=== PATIENT | male | born 1965 | race Caucasian/White ===

== ENCOUNTER 2016-05-11 11:15 | Inpatient (IN) | payer SELFPAY ==
[~2016-05-11] VITALS: Ht 172.7 cm; Wt 64.8 kg
[~2016-05-11 11:15] MED LIST: Z.0.NO CURRENT MEDS
[2016-05-11] MEDS ORDERED: SODIUM CHLORIDE 0.9% FLUSH 5 ML FLUSH IVF PRN (11:45)
[2016-05-11 12:08] LABS: AUTOMATED NEUTROPHIL # 5.2 TH/MM3 (1.8-7.7); BASOPHIL # 0.1 TH/MM3 (0-0.2); BASOPHIL % 1.9 % (0.0-2.0); EOSINOPHIL # 0.1 TH/MM3 (0-0.4); EOSINOPHIL % 0.9 % (0.0-4.0); HEMATOCRIT 45.3 % (39.0-51.0); HEMO FLAGS DIFF FINAL; LYMPH % 20.8 % (9.0-44.0); LYMPHOCYTE # 1.6 TH/MM3 (1.0-4.8); MEAN CELL VOLUME 95.1 FL (80.0-100.0); MEAN CORPUSCULAR HEMOGLOBIN 33.1 PG (27.0-34.0); MEAN CORPUSCULAR HGB CONC 34.8 % (32.0-36.0); MONO % 8.5 % (0.0-8.0); NEUT % 67.9 % (16.0-70.0); PLATELET COUNT 380 TH/MM3 (150-450); RED BLOOD COUNT 4.76 MIL/MM3 (4.50-5.90); RED CELL DISTRIBUTION WIDTH 13.2 % (11.6-17.2); WHITE BLOOD COUNT 7.7 TH/MM3 (4.0-11.0)
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
[2016-05-11] MEDS ORDERED: SODIUM CHLOR 0.9% 1000 ML INJ 1,000 ML IV ONE (12:15)
[2016-05-11 12:17] LABS: APTT (PATIENT) 28.5 SEC (24.3-30.1); PROTHROMBIN TIME - PATIENT 10.7 SEC (9.8-11.6)
[2016-05-11 12:37] LABS: ALKALINE PHOSPHATASE 94 U/L (45-117); ALT (GPT) 41 U/L (12-78); ANION GAP 9 MEQ/L (5-15); AST (GOT) 51 U/L (15-37); BICARBONATE 24.4 MEQ/L (21.0-32.0); BLOOD UREA NITROGEN 6 MG/DL (7-18); CHLORIDE 98 MEQ/L (98-107); CREATINE KINASE 131 U/L (39-308); GLOMERULAR FILTRATION RATE 99 ML/MIN (>89); MAGNESIUM 1.8 MG/DL (1.5-2.5); SODIUM (NA) 131 MEQ/L (136-145); TOTAL BILIRUBIN ADULT 0.5 MG/DL (0.2-1.0)
[2016-05-11 12:38] LABS: POTASSIUM 4.3 MEQ/L (3.5-5.1)
[2016-05-11 12:56] LABS: CKMB 1.3 NG/ML (0.5-3.6)
[2016-05-11 13:04] VITALS: BP 121/66; PULSE 79; RESP 14; O2SAT 97
--- NOTE | 2016-05-11 13:07 | RADRPT ---
EXAM DATE/TIME: 05/11/2016 12:02 [facility] COMPARISON: No previous studies available for comparison. INDICATIONS: Dizziness, with shortness of breath and syncope. MEDICAL HISTORY: None. SURGICAL HISTORY: None. ENCOUNTER: Initial ACUITY: 1 day PAIN SCORE: 05/11 LOCATION: Bilateral chest FINDINGS: There is evidence of questionable nodular densities within both lungs within the left mid lung field, left apex and right perihilar region. CT of the chest would be helpful for further evaluation of th goldie questionable nodules. The heart is normal in size. CONCLUSION: 1. Questionable scattered nodular densities within the lungs bilaterally. CT of the chest would be helpful for further characterization of these questionable nodules. Rustam Campa MD on May 11, 2016 at 12:34 Board Certified Radiologist. This report was verified electronically.
[2016-05-11 13:24] LABS: BLOOD, URINE NEG (NEG); GLUCOSE,URINE 150 mg/dL (NEG); KETONE, URINE 10 mg/dL (NEG); NITRITE,URINE NEG (NEG); PH, URINE 7.5 (5.0-8.5); URINE COLOR YELLOW (YELLW/STRAW)
[2016-05-11] MEDS ORDERED: IOHEXOL 350 MG/ML 10 ML VIAL (for RAD DIAG) IV ONE (13:25)
--- NOTE | 2016-05-11 13:41 | RADRPT ---
EXAM DATE/TIME: 05/11/2016 13:21 [facility] COMPARISON: CHEST SINGLE AP, May 11, 2016, 12:02. INDICATIONS : Near syncopal episode, nause and light headness IV CONTRAST: 75 cc Omnipaque 350 (iohexol) IV RADIATION DOSE: 23.17 CTDIvol (mGy) MEDICAL HISTORY : Cardiovascular disease. Hypertension. SURGICAL HISTORY : None. ENCOUNTER: Initial ACUITY: 1 day PAIN SCALE: 4/10 LOCATION: chest TECHNIQUE: Volumetric scanning of the chest was performed using a pulmonary embolism protocol MIP images were re constructed. Using automated exposure control and adjustment of the mA and/or kV according to patien t size, radiation dose was kept as low as reasonably achievable to obtain optimal diagnostic quality images. FINDINGS: PULMONARY ARTERIES: No filling defects are seen in the pulmonary arteries through the segmental level. LUNGS: The lungs are significant for a background of moderate to severe centrilobular emphysema. There is a spiculated 1.7 cm mass identified within the upper lobe of the left lung, additional spiculated mass identified within the right lower lobe measuring 2.2 cm. Smaller spiculated masses are identified wit hin the right middle lobe measuring 9 mm and within the basilar aspect of the left upper lobe measuri ng 1.2 cm. Multiple small 5 mm lesions are also noted within the right upper lobe. PLEURAE: There is no pleural thickening or pleural effusion. MEDIASTINUM: There is good visualization of the great vessels of the middle mediastinum. There is a rounded 2.3 cm mass involving the right hilum. MUSCULOSKELETAL: Within normal limits for patient age. MISCELLANEOUS: There is a calcified lesion within the spleen consistent with an old calcified hematoma. Adrenal glan ds appear normal. CONCLUSION: Right hilar mass and multiple irregular pulmonary masses as noted above. These are co ncerning for neoplasm. Shavonne Chavez MD on May 11, 2016 at 13:33 Board Certified Radiologist. This report was verified electronically.
[2016-05-11 13:52] LABS: BACTERIA, URINE OCC /hpf; MUCUS URINE MANY /lpf (OCC)
[2016-05-11 13:53] LABS: CULTURE IF INDICATED CULT NOT INDICATED
[2016-05-11] MEDS ORDERED: PIPERACIL-TAZO 4.5 GM PREMIX 100 ML IV STA (14:37)
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
[2016-05-11 15:00] VITALS: BP 117/66; PULSE 101; RESP 14; O2SAT 97
[2016-05-11] MEDS ORDERED: LORazepam 2 MG TAB PO PRN (15:45)
[2016-05-11] MEDS ORDERED: LORazepam 1 MG TAB PO PRN (15:45)
[2016-05-11] MEDS ORDERED: LORazepam 2 MG/ML VIAL IV PUSH PRN ×2 (15:45)
[2016-05-11] MEDS ORDERED: FLUMAZENIL 1 MG/10 ML VIAL IV PUSH PRN (16:00)
[2016-05-11] MEDS: NICOTINE 14 MG/24 HR PATCH TD SCH (16:09)
[2016-05-11 18:00] VITALS: BP 147/84; PULSE 80; RESP 16; O2SAT 95
[2016-05-11 20:03] VITALS: BP 144/85; PULSE 89; RESP 18; O2SAT 96
[2016-05-11] MEDS: RESP: ALBUTEROL 2.5 MG/IPRATROPIUM 0.5 MG NEB (SCH) NEB (20:25)
[2016-05-11 20:27] VITALS: O2SAT 96
[2016-05-11] MEDS: LORazepam 2 MG/ML VIAL IV PUSH PRN (21:47)
[2016-05-11 22:21] LABS: AMPHETAMINE, URINE NEG (NEG); BARBITURATES, URINE NEG (NEG); COCAINE, URINE NEG (NEG)
[2016-05-12] VITALS (14 sets, daily range): BP systolic 110–138; BP diastolic 65–93; PULSE 76–105; RESP 16–20; TEMP 97.8–98.7; O2SAT 92–96
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
[2016-05-12 06:20] LABS: ALKALINE PHOSPHATASE 93 U/L (45-117); ALT (GPT) 32 U/L (12-78); ANION GAP 8 MEQ/L (5-15); AST (GOT) 31 U/L (15-37); BICARBONATE 26.3 MEQ/L (21.0-32.0); BLOOD UREA NITROGEN 7 MG/DL (7-18); CHLORIDE 104 MEQ/L (98-107); GLOMERULAR FILTRATION RATE 139 ML/MIN (>89); POTASSIUM 3.8 MEQ/L (3.5-5.1); SODIUM (NA) 138 MEQ/L (136-145)
[2016-05-12 07:35] LABS: HEMATOCRIT 49.1 % (39.0-51.0); MEAN CELL VOLUME 96.7 FL (80.0-100.0); MEAN CORPUSCULAR HEMOGLOBIN 33.2 PG (27.0-34.0); MEAN CORPUSCULAR HGB CONC 34.3 % (32.0-36.0); PLATELET COUNT 346 TH/MM3 (150-450); RED BLOOD COUNT 5.08 MIL/MM3 (4.50-5.90); RED CELL DISTRIBUTION WIDTH 13.2 % (11.6-17.2); REVIEW FLAG FINAL; WHITE BLOOD COUNT 9.5 TH/MM3 (4.0-11.0)
[2016-05-12] MEDS: RESP: ALBUTEROL 2.5 MG/IPRATROPIUM 0.5 MG NEB (SCH) NEB ×2 (08:00→11:54)
--- NOTE | 2016-05-12 08:34 | HHI.FPPN ---
Subjective Remarks Patient seen and examined this am. Has been evaluated by pulmonology. No overnight events. Vitals are stable, he is afebrile. He has no complaints this am. (Silvia Maher MD R3) Objective Vitals Vital Signs Date Time Temp Pulse Resp B/P Pulse Ox O2 Delivery O2 Flow Rate FiO2 05/12/16 06:35 76 18 138/83 94 05/12/16 05:24 96 21 05/12/16 00:39 86 18 114/65 96 Room Air 05/11/16 20:27 96 21 05/11/16 20:03 89 18 144/85 96 Room Air 05/11/16 18:00 80 16 147/84 95 Room Air 05/11/16 15:00 101 14 117/66 97 Room Air 05/11/16 13:04 79 14 121/66 97 Room Air I/O 05/11/16 05/11/16 05/11/16 05/12/16 05/12/16 05/12/16 07:00 15:00 23:00 07:00 15:00 23:00 Output Total 600 ml Balance -600 ml Output Urine Total 600 ml # Voids 1 (Silvia Maher MD R3) Result Diagram: 05/12/16 0537 05/12/16 [address] Angiography 05/11/16 1251 Signed Impressions: Service Date/Time: Wednesday, May 11, 2016 13:21 - CONCLUSION: Right hilar mass and multiple irregular pulmonary masses as noted above. These are concerning for neoplasm. Shavonne Chavez MD Chest X-Ray 05/11/16 1144 Signed Impressions: Service Date/Time: Wednesday, May 11, 2016 12:02 - CONCLUSION: 1. Questionable scattered nodular densities within the lungs bilaterally. CT of the chest would be helpful for further characterization of these questionable nodules. Rustam Campa MD Objective Remarks GENERAL: disheveled appearing SKIN: Warm and dry. acne on back HEAD: Normocephalic. EYES: No scleral icterus. No injection or drainage. NECK: Supple, trachea midline. No JVD or lymphadenopathy. CARDIOVASCULAR: Regular rate and rhythm without murmurs, gallops, or rubs. RESPIRATORY: Breath sounds equal bilaterally. No accessory muscle use. GASTROINTESTINAL: Abdomen soft, non-tender, nondistended. MUSCULOSKELETAL: No cyanosis, or edema. BACK: Nontender without obvious deformity. No CVA tenderness. (Silvia Maher MD R3) A/P Assessment and Plan 50 yo male presented to ED after near syncopal event found to have incidental lung mass. Discharge Planning D/C pending work up of lung mass. Will need assistance with obtaining blue card. seen and discussed with Iván Jennings Clark (Silvia Maher MD R3) Attending Attestation A detailed discussion with Dr Maher, Dr Minor, Dr Agustin and Dr Jewell about patients admission was held this morning, patient was then seen and examined by the team, agree with the contents of this note,Assessment and Plan appropiate, See Orders. (Mannie Patel MD) Problem List: (1) Near syncope Status: Resolved Plan: Patient presenting after acute onset of chest pain, shortness of breath, dizziness, and feelings of impending doom. Resolved after oxygen supplementation and IV fluids. Based on history from patient, it does sound like an anxiety attack. - Troponin negative - CTA negative for PE (2) Lung mass Status: Acute Plan: CC CTA and chest x-ray imaging above. Right hilar mass and multiple irregular pulmonary masses are noted. Concern for neoplasm. The patient is without insurance or PCP. - Seen by pulmonology: PFTs, CT guided biopsy, coag profile, duonebs, smoking cessation (3) UTI (urinary tract infection) Status: Acute Plan: UA is significant for 150 glucose, 30 protein, 10 ketones, 6-8 WBCs, occasional bacteria. He was given IV Zosyn in the ED. - Because this is a simple UTI we'll treat with Bactrim 160 mg by mouth twice a day 3 days - Urine culture is pending (4) Alcohol abuse Status: Acute Plan: Patient drinks a sixpack of alcohol every day. He denies symptoms of withdrawal with cessation. He is not motivated to quit. - CIWA protocol ordered (5) Smoker Status: Acute Plan: 1 pack per day for greater than 30 years. Patient with no desire to quit at this time. - Nicotine patch (6) FEN Status: Acute Plan: Fluids: Hep-Lock IV. Electrolytes: hypoNa resolved after fluid restriction and 1 L bolus Nutrition: regular diet DVT prophy- bilat SCDs (Silvia Maher MD R3) Silvia Maher MD R3 May 12, 2016 08:34 Mannie Patel MD May 12, 2016 16:31
[2016-05-12] MEDS: REMOVE OLD PATCH TD SCH (09:00)
[2016-05-12] MEDS: NICOTINE 14 MG/24 HR PATCH TD SCH (10:18)
[2016-05-12] MEDS: SULFAMETHOXAZOLE-TRIMETHOPRIM DS 800-160 MG TAB PO SCH ×2 (10:19→21:11)
[2016-05-12] MEDS: LORazepam 2 MG/ML VIAL IV PUSH PRN ×3 (11:13→21:11)
[2016-05-12] MEDS ORDERED: LIDOCAINE 1%/EPINEPHrine 1:100,000 SOLN 20 ML VIAL ONE (13:03)
[2016-05-12] MEDS ORDERED: fentaNYL CITRATE 250 MCG/5 ML AMP ONE (13:25)
[2016-05-12] MEDS ORDERED: MIDAZOLAM HCL 5 MG/5 ML VIAL ONE (13:25)
--- NOTE | 2016-05-12 14:27 | RADRPT ---
EXAM DATE/TIME: 05/12/2016 13:30 [facility] COMPARISON: No previous studies available for comparison. INDICATIONS : Right lung mass. SEDATION TIME: 30 minutes BIOPSY SITE: Right MEDICATION(S): 1.) 3 mg midazolam (Versed) IV 2.) 150 mcg fentanyl (Sublimaze) IV DEVICE(S): 1.) 20 gauge Temno core biopsy needle MEDICAL HISTORY : Hypertension. Cardiovascular disease. SURGICAL HISTORY : None. ENCOUNTER: Initial ACUITY: 1 day PAIN SCORE: 0/10 LOCATION: Right chest A total of three core specimen(s) were obtained and sent to the laboratory for pathologic evaluation. PROCEDURE: 1. CT guided lung biopsy. 2. Conscious sedation with continuous EKG and oximetry monitoring. 3. EKG and oximetry remained stable throughout the procedure. Prior to the procedure informed consent was obtained. Any appropriate prior imaging studies were rev iewed. The site was prepped in a sterile fashion. Full sterile technique was used, including cap, mask, emmy rile gloves and gown and a large sterile sheet. Hand hygiene and 2% chlorhexidine and/or betadine/al cohol prep was utilized per protocol for cutaneous antisepsis. The skin and subcutaneous tissues wer e infiltrated with local anesthetic solution. Under CT guidance an 18 gauge blunt needle was placed down to the lesion and 3 cores were obtained. A single slide was submitted. Material was sent for culture. Follow-up CT scan reveals no pneumothorax. Conscious sedation was performed with the prescribed dosages and duration as above. The patient tsering ated the procedure well and there were no complications. EKG and oximetry remained stable throughout the procedure. The patient was sent to Radiology Outpatient Unit in stable condition. CONCLUSION: Uncomplicated CT guided biopsy. Pathology and culture is pending pending Clive Berrios MD FACR on May 12, 2016 at 14:20 Board Certified Radiologist. This report was verified electronically.
[2016-05-12] MEDS ORDERED: oxyCODONE/ACETAMINOPHEN 5 MG/325 MG TAB PO PRN (14:45)
--- NOTE | 2016-05-12 16:38 | RADRPT ---
EXAM DATE/TIME: 05/12/2016 16:07 [facility] COMPARISON: No previous studies available for comparison. INDICATIONS : Post right side lung biopsy. MEDICAL HISTORY : Hypertension. Cardiovascular disease. SURGICAL HISTORY : None. ENCOUNTER: Initial ACUITY: 1 day PAIN SCORE: 2/10 LOCATION: Right chest FINDINGS: A single frontal expiratory view of the chest was performed. The lungs are symmetrically aerated and clear. No evidence of pneumothorax. Mediastinal structures are in the midline. The cardio-mediastinal contours and bronchopulmonary markings are unremarkable for an expiratory exam . Osseous structures are intact. CONCLUSION: There is no pneumothorax following lung biopsy on the right. Clive Berrios MD FACR on May 12, 2016 at 16:33 Board Certified Radiologist. This report was verified electronically.
--- NOTE | 2016-05-12 17:53 | HHI.PR ---
Subjective Remarks Had CT needle biopsy. NO pneumothorax. Shaky and want s to go home. Path pending. Objective Vital Signs Date Time Temp Pulse Resp B/P Pulse Ox O2 Delivery O2 Flow Rate FiO2 05/12/16 17:05 97.8 105 16 127/75 92 05/12/16 16:30 101 20 110/70 95 05/12/16 16:00 103 20 119/75 94 05/12/16 15:30 98 18 129/80 94 05/12/16 15:00 103 20 117/74 94 05/12/16 14:30 98 20 130/93 94 05/12/16 14:15 98.6 96 20 111/72 92 05/12/16 11:54 92 05/12/16 10:15 94 20 137/78 95 Room Air 05/12/16 06:35 76 18 138/83 94 05/12/16 05:24 96 21 05/12/16 00:39 86 18 114/65 96 Room Air 05/11/16 20:27 96 21 05/11/16 20:03 89 18 144/85 96 Room Air 05/11/16 18:00 80 16 147/84 95 Room Air I/O 05/11/16 05/11/16 05/11/16 05/12/16 05/12/16 05/12/16 07:00 15:00 23:00 07:00 15:00 23:00 Output Total 600 ml Balance -600 ml Output Urine Total 600 ml # Voids 1 Result Diagram: 05/12/16 0537 05/12/16 0537 Objective Remarks General: This is a middle-aged white male who is alert and in no acute distress. HEENT: Head normocephalic. Pupils are reactive. Tongue moist. Nasal mucosa edematous. Throat is mildly injected. Neck: Supple. No bruits, no thyroid enlargement. Chest: Equal movements with decreased excursions and a few wheezes anteriorly with no crackles on either side. Heart: The heart sounds are regular. S1 and S2 with no murmur. No S3. Abdomen: Soft, benign. No mass, no organomegaly or tenderness. Bowel sounds are active. Extremities: No edema or lesions. Neuro: Normal reflexes. There are no gross motor deficits. Cranial nerves are grossly intact. Skin: No lesions. Assessment and Plan Assessment and Plan IMPRESSION 1. Multiple lung masses, rule out malignancy. 2. Chronic obstructive pulmonary disease. 3. Near syncope. 4. Nicotine dependency. Plan : 1. Will add Spiriva , 1 cap daily. 2. Albuterol HFA 2 puffs qid prn. 3. Path report pending. 4. Nicotine patch/ Ativan prn. 5. CXR in am Armida Landon MD May 12, 2016 17:53
[2016-05-12] MEDS ORDERED: ALBUTEROL SULFATE 90 MCG/ACT HFA 8 GM INHALER INH PRN (18:00)
--- NOTE | 2016-05-12 22:51 | EKG ---
Date Performed: 05/11/2016 Time Performed: 11:21:36 PTAGE: 50 years EKG: SINUS TACHYCARDIA ABNORMAL RHYTHM ECG PREVIOUS TRACING : 11/17/2008 08.53 Compared to prior tracing no significant change DOCTOR: Jose Eduardo Rdz Interpretating Date/Time 05/12/2016 22:48:14
[2016-05-13 00:20] VITALS: BP 122/7; PULSE 88; RESP 16; TEMP 98.3; O2SAT 93
[2016-05-13 04:00] VITALS: BP 107/70; PULSE 83; RESP 16; TEMP 98.5; O2SAT 94
[2016-05-13] MEDS: LORazepam 2 MG/ML VIAL IV PUSH PRN ×2 (04:34→08:51)
[2016-05-13 06:05] LABS: HEMATOCRIT 47.5 % (39.0-51.0); MEAN CELL VOLUME 96.7 FL (80.0-100.0); MEAN CORPUSCULAR HGB CONC 34.1 % (32.0-36.0); PLATELET COUNT 346 TH/MM3 (150-450); RED BLOOD COUNT 4.91 MIL/MM3 (4.50-5.90); RED CELL DISTRIBUTION WIDTH 13.3 % (11.6-17.2); REVIEW FLAG FINAL; WHITE BLOOD COUNT 8.4 TH/MM3 (4.0-11.0)
[2016-05-13 06:17] LABS: BICARBONATE 25.1 MEQ/L (21.0-32.0); POTASSIUM 3.7 MEQ/L (3.5-5.1)
[2016-05-13 08:00] VITALS: BP 130/82; PULSE 103; RESP 20; TEMP 97.5; O2SAT 94
--- NOTE | 2016-05-13 08:24 | RADRPT ---
EXAM DATE/TIME: 05/13/2016 07:16 [facility] COMPARISON: CHEST EXPIRATION ONLY, May 12, 2016, 16:07. CT NEEDLE BIOPSY LUNG, RIGHT, May 12, 2016, 13:[address] PULMONARY ANGIOGRAM, May 11, 2016, 13:21. INDICATIONS : Short of breath MEDICAL HISTORY : None. SURGICAL HISTORY : None. ENCOUNTER: Subsequent ACUITY: 2 days PAIN SCORE: 0/10 LOCATION: Bilateral chest FINDINGS: Minimal atelectasis in both bases. Bilateral pulmonary masses are vaguely seen. No pneumothorax demon strated. No pleural effusion. Heart size stable, within normal limits. CONCLUSION: Trace bibasilar atelectasis. No pneumothorax. Ras Mera MD on May 13, 2016 at 8:22 Board Certified Radiologist. This report was verified electronically.
--- NOTE | 2016-05-13 08:45 | HHI.FPPN ---
Subjective Remarks No acute events overnight. AFVSS. Eating, voiding, stooling, ambulating without difficulties. Has no acute complaints, requesting when he can leave hospital. We discussed that though lung biopsy is still being read by pathologist, preliminary reading showed cancer, non-SCC. Patient appeared to minimalize whatever response he had to this news. Continued smiling, stated he had no questions. We emphasized that it was important to follow up with the lung doctors in the oncology/cancer doctors, as well as a primary care physician to take care of his lung cancer. Patient expressed understanding. Denies fevers, chills, nausea, vomiting, chest pain, palpitations, shortness of breath, abdominal pain. Objective Vitals Vital Signs Date Time Temp Pulse Resp B/P Pulse Ox O2 Delivery O2 Flow Rate FiO2 05/13/16 04:00 98.5 83 16 107/70 94 05/13/16 00:20 98.3 88 16 122/7 93 05/12/16 22:27 21 05/12/16 20:00 98.7 98 16 127/72 94 05/12/16 20:00 98.7 98 16 127/72 94 05/12/16 19:30 96 05/12/16 17:05 97.8 105 16 127/75 92 05/12/16 16:30 101 20 110/70 95 05/12/16 16:00 103 20 119/75 94 05/12/16 15:30 98 18 129/80 94 05/12/16 15:00 103 20 117/74 94 05/12/16 14:30 98 20 130/93 94 05/12/16 14:15 98.6 96 20 111/72 92 05/12/16 11:54 92 05/12/16 10:15 94 20 137/78 95 Room Air I/O 05/12/16 05/12/16 05/12/16 05/13/16 05/13/16 05/13/16 07:00 15:00 23:00 07:00 15:00 23:00 Intake Total 200 ml Balance 200 ml Intake Oral 200 ml # Voids 2 Result Diagram: 05/13/16 0405 05/13/16 0405 Imaging Last Impressions Chest X-Ray 05/12/16 1600 Signed Impressions: Service Date/Time: Thursday, May 12, 2016 16:07 - CONCLUSION: There is no pneumothorax following lung biopsy on the right. Clive Berrios MD FACR Lung Biopsy CT 05/12/16 0000 Signed Impressions: Service Date/Time: Thursday, May 12, 2016 13:30 - CONCLUSION: Uncomplicated CT guided biopsy. Pathology and culture is pending pending Clive Berrios MD FACR CT Angiography 05/11/16 1251 Signed Impressions: Service Date/Time: Wednesday, May 11, 2016 13:21 - CONCLUSION: Right hilar mass and multiple irregular pulmonary masses as noted above. These are concerning for neoplasm. Shavonne Chavez MD Objective Remarks GENERAL: disheveled appearing thin male in NAD SKIN: Warm and dry. acne on back. 0.5 cm circular pale mobile mass on right clavicle HEENT: PERRL. MMM. CARDIOVASCULAR: Regular rate and rhythm without murmurs, gallops, or rubs. RESPIRATORY: Breath sounds equal bilaterally. No accessory muscle use. GASTROINTESTINAL: Abdomen soft, non-tender, nondistended. MUSCULOSKELETAL: No cyanosis, or edema. NEURO: No gross motor sensory deficits PSYCH: Appears in good spirits, smiling throughout exam. Response to cancer diagnosis was minimalistic. Procedures 05/12/15- Lung Biopsy Urinary Catheter: No Vascular Central Line Catheter: No A/P Assessment and Plan 50 yo male presented to ED after near syncopal event found to have incidental lung mass. Discharge Planning Today or tomorrow, pending case assistance obtaining blue card and pulmonology recommendations Problem List: (1) Non-small cell cancer of right lung Status: Acute Plan: Non-small cell carcinoma, per 05/12/15 lung biopsy. Imaging:R hilar mass, multiple irregular masses. Lung biopsy 05/12/15 initial smear suggestive small cell carcinoma. CTA, CXR as above. Pulmonology consulted. Plan PFTs ordered 05/11, not appearing in EMR at present time, performed? Supportive: PPSV23 administered, Smoking cessation encouraged, nicotine patch PRN Wound Cx (05/12): gram stain, fungal stain, mycoplasm stain, pending BCx- NG1D UCx- NG1D PPD pending Case consulted- help with blue card establishment Pulmonary consulted- will follow up as outpatient Will discuss if referral to onc at discharge or through pcp (2) UTI (urinary tract infection) Status: Acute Plan: UA is significant for 150 glucose, 30 protein, 10 ketones, 6-8 WBCs, occasional bacteria. He was given IV Zosyn in the ED. - Because this is a simple UTI we'll treat with Bactrim 160 mg by mouth twice a day 3 days - Urine culture is pending (3) Near syncope Status: Resolved Plan: Patient presenting after acute onset of chest pain, shortness of breath, dizziness, and feelings of impending doom. Resolved after oxygen supplementation and IV fluids. Initially thought to be anxiety attack, may also be related to incidental SCC diagnosed during hospitalization. Troponin negative. CTA negative for PE. may be related to alcohol withdrawal. plan -see plan for non-SCC -follow up pcp (4) Alcohol abuse Status: Acute Plan: Patient drinks a sixpack of alcohol every day. He denies symptoms of withdrawal with cessation. He is not motivated to quit. plan - [facility] protocol ordered, encouraged alcohol cessation (5) Smoker Status: Acute Plan: 1 pack per day for greater than 30 years. Patient with no desire to quit at this time. - Nicotine patch, smoking cessation counseling provided (6) FEN Status: Acute Plan: Fluids: PO Electrolytes: hypoNa resolved after fluid restriction and 1 L bolus Nutrition: regular diet DVT prophy- bilat SCDs GI: not indicated SDW: Dr Farley DW: Lennie Lu MD R1 May 13, 2016 08:44
[2016-05-13] MEDS: REMOVE OLD PATCH TD SCH (08:47)
[2016-05-13] MEDS: NICOTINE 14 MG/24 HR PATCH TD SCH (08:47)
[2016-05-13] MEDS: SULFAMETHOXAZOLE-TRIMETHOPRIM DS 800-160 MG TAB PO SCH (08:47)
[2016-05-13] MEDS ORDERED: TIOTROPIUM BROMIDE 18 MCG INH INH SCH (09:00)
[2016-05-13] MEDS ORDERED: PNEUMOCOCCAL POLYVALENT INJ 25 MCG/0.5 ML SYR IM ONE (10:00)
[2016-05-13 11:27] VITALS: PULSE 89
[2016-05-13 12:00] VITALS: BP 119/77; PULSE 115; RESP 20; TEMP 97.2; O2SAT 95
[2016-05-14 14:02] LABS: MITOGEN MINUS NIL RESULT >10.00 IU/mL (()); NIL RESULT 0.03 IU/mL (()); QUANTIFERON TB GOLD RESULT Negative (Negative)
--- NOTE | 2016-06-15 08:42 | RSPPFT ---
DATE OF PROCEDURE: 05/13/16 COMMENTS: Spirometry demonstrates an FEV1 of 1.7 at 49%, FVC of 2.7 at 64%, FEV1/FVC ratio is 63% of predicted. The FEF 25-75 was 33% of predicted. Post-bronchodilator study demonstrated mild improvements in the FVC and the FEF 25-75. Flow volume loops suggest an obstructive defect. IMPRESSION: 1. Severe obstructive disease. 2. Significant response to use of bronchodilator indicating some reversibility.
== END 2016-05-13 12:21 | disposition left against medical advice (07) | DRG 181 ==
LOC: NEPE 11:15 → NEDA 14:36 → NEDH 19:25 → N04A 05-12 17:06
PROVIDERS: ADMIT Family Medicine; ATTEND Family Medicine
PROC: 0BBK3ZX Excision of Right Lung, Percutaneous Approach, Diagnostic (ICD-10-PCS; principal; 2016-05-12)
DX: C34.91 Malignant neoplasm of unspecified part of right bronchus or lung (principal); E87.1 Hypo-osmolality and hyponatremia; I10 Essential (primary) hypertension; N39.0 Urinary tract infection, site not specified; R55 Syncope and collapse; J44.9 Chronic obstructive pulmonary disease, unspecified; F17.210 Nicotine dependence, cigarettes, uncomplicated; R61 Generalized hyperhidrosis; R00.2 Palpitations; F10.10 Alcohol abuse, uncomplicated; R11.0 Nausea; R00.0 Tachycardia, unspecified; Y90.2 Blood alcohol level of 40-59 mg/100 ml; F12.90 Cannabis use, unspecified, uncomplicated
CPT/HCPCS: 32405; 71010; 71275; 77012; 80048; 80053; 80307; 80320; 81001; 82550; 82552; 83605; 83735; 84484; 85025; 85027; 85379; 85610; 85730; 86480; 87015; 87040; 87070; 87086; 87102; 87116; 87205; 87206; 88305; 88333; 90732; 93005; 94060; 94664; 96360; J2060; J2250; J2543; J3010; J7030; Q9967

== ENCOUNTER 2016-11-25 14:01 | Emergency (ER) | payer OTHER ==
[~2016-11-25] VITALS: Ht 172.7 cm; Wt 59.0 kg
[2016-11-25 14:12] VITALS: BP 99/61; PULSE 107; RESP 20; TEMP 98.7; O2SAT 97
--- NOTE | 2016-11-25 14:25 | PD ---
Physical Exam Time Seen by Provider: 14:25 Narrative 51 y/o male with abdominal pain radiating into the back which has been ongoing for 4 months. Vital signs reviewed. Seen at triage desk. Awaiting bed placement. Data Data Last Documented VS Vital Signs Date Time Temp Pulse Resp B/P Pulse Ox O2 Delivery O2 Flow Rate FiO2 11/25/16 14:12 98.7 107 20 99/61 97 Room Air [facility] Medical Record Reviewed: Yes Supervised Visit with ARLENE: No Scripts No Active Prescriptions or Reported Meds Kiel Waller Nov 25, 2016 14:25
[2016-11-25] MEDS ORDERED: SODIUM CHLOR 0.9% 1000 ML INJ 1,000 ML IV SCH (15:35)
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
[2016-11-25] MEDS ORDERED: ONDANSETRON HCL 4 MG/2 ML VIAL IVP ONE (15:45)
[2016-11-25] MEDS ORDERED: MORPHINE SULFATE 4 MG/ML INJ IV PUSH ONE ×2 (15:45→16:30)
[2016-11-25] MEDS ORDERED: SODIUM CHLORIDE 0.9% FLUSH 10 ML FLUSH IV FLUSH PRN (15:45)
[2016-11-25 16:50] LABS: AUTOMATED NEUTROPHIL # 7.6 TH/MM3 (1.8-7.7); BASOPHIL # 0.1 TH/MM3 (0-0.2); BASOPHIL % 1.2 % (0.0-2.0); EOSINOPHIL # 0.2 TH/MM3 (0-0.4); EOSINOPHIL % 1.9 % (0.0-4.0); HEMATOCRIT 43.6 % (39.0-51.0); HEMO FLAGS DIFF FINAL; LYMPH % 18.9 % (9.0-44.0); LYMPHOCYTE # 2.3 TH/MM3 (1.0-4.8); MEAN CELL VOLUME 93.2 FL (80.0-100.0); MEAN CORPUSCULAR HEMOGLOBIN 32.1 PG (27.0-34.0); MEAN CORPUSCULAR HGB CONC 34.4 % (32.0-36.0); MONO % 14.8 % (0.0-8.0); NEUT % 63.2 % (16.0-70.0); PLATELET COUNT 672 TH/MM3 (150-450); RED BLOOD COUNT 4.67 MIL/MM3 (4.50-5.90); RED CELL DISTRIBUTION WIDTH 14.1 % (11.6-17.2); WHITE BLOOD COUNT 11.9 TH/MM3 (4.0-11.0)
[2016-11-25 16:56] LABS: BLOOD, URINE NEG (NEG); COMMENT (UR) CULT NOT INDICATED; CULTURE IF INDICATED CULT NOT INDICATED; GLUCOSE,URINE NEG (NEG); KETONE, URINE 40 mg/dL (NEG); MUCUS URINE FEW /lpf (OCC); NITRITE,URINE NEG (NEG); PH, URINE 5.5 (5.0-8.5); URINE COLOR YELLOW (YELLW/STRAW)
[2016-11-25 17:00] VITALS: BP 133/72; PULSE 85; RESP 19; O2SAT 98
[2016-11-25 17:01] VITALS: BP 133/72; PULSE 85; RESP 19; O2SAT 98
[2016-11-25 17:04] LABS: ALKALINE PHOSPHATASE 93 U/L (45-117); ALT (GPT) 17 U/L (12-78); TOTAL BILIRUBIN ADULT 0.4 MG/DL (0.2-1.0)
[2016-11-25 17:11] LABS: ANION GAP 7 MEQ/L (5-15); AST (GOT) 33 U/L (15-37); BICARBONATE 27.5 MEQ/L (21.0-32.0); BLOOD UREA NITROGEN 10 MG/DL (7-18); CHLORIDE 101 MEQ/L (98-107); GLOMERULAR FILTRATION RATE 144 ML/MIN (>89); POTASSIUM 4.2 MEQ/L (3.5-5.1); SODIUM (NA) 135 MEQ/L (136-145)
[2016-11-25] MEDS ORDERED: IOHEXOL 350 MG/ML 10 ML VIAL (for RAD DIAG) IV ONE (18:56)
--- NOTE | 2016-11-25 19:17 | RADRPT ---
EXAM DATE/TIME: 11/25/2016 18:38 [facility] COMPARISON: CT PULMONARY ANGIOGRAM, May 11, 2016, 13:21. INDICATIONS : Abdominal and back pain. IV CONTRAST: 100 cc Omnipaque 350 (iohexol) IV ORAL CONTRAST: No oral contrast ingested. RADIATION DOSE: 6.64 CTDIvol (mGy) MEDICAL HISTORY : Cardiovascular disease. Carcinoma, lung. Hypertension. SURGICAL HISTORY : None. ENCOUNTER: Initial ACUITY: 4 - 6 months PAIN SCALE: 9/10 LOCATION: abdomen TECHNIQUE: Volumetric scanning of the abdomen and pelvis was performed. Using automated exposure control and ad justment of the mA and/or kV according to patient size, radiation dose was kept as low as reasonably achievable to obtain optimal diagnostic quality images. DICOM format image data is available electro nically for review and comparison. FINDINGS: Lung bases are clear except for minimal dependent atelectasis. There is a 5.4 cm mass at the midpole right kidney. The mass appears to invaginate the renal cortex a nd is probably centered in the perirenal fat. This is most characteristic of metastatic disease given the reported lung masses. There is a 2.4 cm left adrenal nodule also suspicious for metastatic disease. No significant abnormal ity in the liver. Several splenules present in the left upper quadrant with some calcifications as we ll possibly related to prior trauma or surgery. There is no free fluid. No bowel obstruction. There is a 2.2 cm lytic and bony destructive lesion in the left iliac wing suspicious for bony metast atic disease. No other pelvic masses or adenopathy. CONCLUSION: 1. 5.4 cm mass adjacent to midpole right kidney, probably extrinsic to the right kidney and most sharla acteristic of metastatic disease. 2. 2.2 cm lytic lesion left iliac wing associated with a small soft tissue mass characteristic of bon y metastatic disease. 3. 2.4 cm left adrenal nodule. This is most characteristic of metastatic disease and is increased from May 2016. Venkata Mars MD on November 25, 2016 at 19:07 Board Certified Radiologist. This report was verified electronically.
[2016-11-25] MEDS ORDERED: HYDR-3533 PO (19:32)
--- NOTE | 2016-11-25 19:33 | PD ---
Data Data Last Documented VS Vital Signs Date Time Temp Pulse Resp B/P Pulse Ox O2 Delivery O2 Flow Rate FiO2 11/25/16 17:01 85 19 133/72 98 Room Air 11/25/16 14:12 98.7 Orders Complete Blood Count With Diff (11/25/16 15:35) Comprehensive Metabolic Panel (11/25/16 15:35) Lipase (11/25/16 15:35) Urinalysis - C+S If Indicated (11/25/16 15:35) Ct Abd/Pel W Iv Contrast(Rout) (11/25/16 15:35) Iv Access Insert/Monitor (11/25/16 15:35) Ecg Monitoring (11/25/16 15:35) Oximetry (11/25/16 15:35) Ondansetron Inj (Zofran Inj) (11/25/16 15:45) Sodium Chlor 0.9% 1000 Ml Inj (Ns 1000 M (11/25/16 15:35) Sodium Chloride 0.9% Flush (Ns Flush) (11/25/16 15:45) Morphine Inj (Morphine Inj) (11/25/16 15:45) Morphine Inj (Morphine Inj) (11/25/16 16:30) Iohexol 350 Inj (Omnipaque 350 Inj) (11/25/16 18:56) Acetamin-Hydrocod 325-5 Mg ([place] 5-325 (11/25/16 19:45) Labs Laboratory Tests Test 11/25/16 15:45 White Blood Count 11.9 TH/MM3 Red Blood Count 4.67 MIL/MM3 Hemoglobin 15.0 GM/DL Hematocrit 43.6 % Mean Corpuscular Volume 93.2 FL Mean Corpuscular Hemoglobin 32.1 PG Mean Corpuscular Hemoglobin 34.4 % Concent Red Cell Distribution Width 14.1 % Platelet Count 672 TH/MM3 Mean Platelet Volume 7.1 FL Neutrophils (%) (Auto) 63.2 % Lymphocytes (%) (Auto) 18.9 % Monocytes (%) (Auto) 14.8 % Eosinophils (%) (Auto) 1.9 % Basophils (%) (Auto) 1.2 % Neutrophils # (Auto) 7.6 TH/MM3 Lymphocytes # (Auto) 2.3 TH/MM3 Monocytes # (Auto) 1.8 TH/MM3 Eosinophils # (Auto) 0.2 TH/MM3 Basophils # (Auto) 0.1 TH/MM3 CBC Comment DIFF FINAL Differential Comment Urine Color YELLOW Urine Turbidity CLEAR Urine pH 5.5 Urine Specific [place] 1.021 Urine Protein TRACE mg/dL Urine Glucose (UA) NEG mg/dL Urine Ketones 40 mg/dL Urine Occult Blood NEG Urine Nitrite NEG Urine Bilirubin NEG Urine Urobilinogen 2.0 MG/DL Urine Leukocyte Esterase NEG Urine WBC 1 /hpf Urine Mucus FEW /lpf Microscopic Urinalysis Comment CULT NOT INDICATED Sodium Level 135 MEQ/L Potassium Level 4.2 MEQ/L Chloride Level 101 MEQ/L Carbon Dioxide Level 27.5 MEQ/L Anion Gap 7 MEQ/L Blood Urea Nitrogen 10 MG/DL Creatinine 0.59 MG/DL Estimat Glomerular Filtration 144 ML/MIN Rate Random Glucose 87 MG/DL Calcium Level 10.1 MG/DL Total Bilirubin 0.4 MG/DL Aspartate Amino Transf 33 U/L (AST/SGOT) Alanine Aminotransferase 17 U/L (ALT/SGPT) Alkaline Phosphatase 93 U/L Total Protein 8.8 GM/DL Albumin 3.2 GM/DL Lipase 90 U/L [facility] Medical Record Reviewed: Yes Supervised Visit with ARLENE: Yes Narrative Course CBC & BMP Diagram 11/25/16 15:45 LFTs lipase and urine are unremarkable Last 24 hours Impressions Abdomen/Pelvis CT 11/25/16 3705 Signed Impressions: Service Date/Time: , November 25, 2016 18:38 - CONCLUSION: 1. 5.4 cm mass adjacent to midpole right kidney, probably extrinsic to the right kidney and most characteristic of metastatic disease. 2. 2.2 cm lytic lesion left iliac wing associated with a small soft tissue mass characteristic of bony metastatic disease. 3. 2.4 cm left adrenal nodule. This is most characteristic of metastatic disease and is increased from May 2016. Venkata Mars MD The CT findings were discussed at length with the patient. He spent about 10 minutes describing the nature of his diagnosis and the necessity of prompt follow-up. The patient reports he has an appointment at the [facility] next Tuesday at 8:30 AM, 8 days from now. He understands that he carries a diagnosis of cancer now with metastasis. He was informed of this 6 months ago. He reports it was "stupid" however he eloped from the hospital about 6 hours after he was informed of the diagnosis before follow-up could be established. Fortunately he now understands the gravity of his diagnoses and the importance of following up. He has verbalized intent to do so and his significant other was present throughout the conversation and has affirmed the plan to adhere to follow-up instructions as discussed and scheduled. Diagnosis Primary Impression: Lung mass Additional Impression: Metastasis Referrals: Oncologist 1 week Additional Instruction: You have a choice when it comes to health care, and we are glad that you chose [facility]. Hopefully, we have met your expectations on today's visit. You are welcome to return to [facility] at any time, as we are committed to meeting the health care needs of our community. Med/Other Pt SpecificInfo: Prescription(s) given Scripts Hydrocodone-Acetaminophen (Lortab)5-325 Mg Tab1-2 Tab PO Q6H PRN (PAIN SCALE 6 TO 10) #20 TAB Ref 0 Prov:Shawn Yepez MD 11/25/16 Disposition: 01 DISCHARGE HOME Condition: Stable Shawn Yepez MD Nov 25, 2016 19:33
[2016-11-25] MEDS ORDERED: ACETAMINOPHEN/HYDROcodone 325 MG/5 MG TAB PO ONE (19:45)
[2016-11-25 19:52] VITALS: BP 141/66; TEMP 98.9
== END 2016-11-25 19:53 | disposition home or self-care (01) ==
LOC: NEPD 14:01
DX: R91.8 Other nonspecific abnormal finding of lung field (principal); C34.90 Malignant neoplasm of unspecified part of unspecified bronchus or lung; N28.89 Other specified disorders of kidney and ureter; D72.829 Elevated white blood cell count, unspecified; I10 Essential (primary) hypertension; J44.9 Chronic obstructive pulmonary disease, unspecified; F17.200 Nicotine dependence, unspecified, uncomplicated
CPT/HCPCS: 74177; 80053; 81001; 83690; 85025; 96361; 96374; 96375; 99285; J2270; J2405; J7030; Q9967

== ENCOUNTER 2016-12-09 07:22 | Day surgery (SDC) | payer OTHER ==
[~2016-12-09] VITALS: Ht 172.7 cm; Wt 58.6 kg
[~2016-12-09 07:22] MED LIST changes: +HYDR-3533 PO; -Z.0.NO CURRENT MEDS
[2016-12-09 07:39] VITALS: BP 99/75; PULSE 103; RESP 18; TEMP 98.2; O2SAT 98
[2016-12-09] MEDS ORDERED: ACET-822 PO (07:43)
[2016-12-09] MEDS ORDERED: ACET25TA2 PO (07:43)
[2016-12-09] MEDS ORDERED: POVIDONE IODINE 5% (ANTISEPSIS KIT) 4 APPLICATIONS EACH NARE SCH (08:00)
[2016-12-09] MEDS ORDERED: CHLORHEXIDINE GLUCONATE 2 % 1 PACK (2 CLOTHS) TOPICAL SCH (08:00)
[2016-12-09] MEDS ORDERED: ceFAZolin 2 GM PREMIX 50 ML - implanted port/tunneled catheter insertion IV SCH (08:00)
[2016-12-09] MEDS ORDERED: VANCOMYCIN 1000 MG/NS 250 ML - implanted port/tunneled catheter IV SCH ×2 (08:00)
[2016-12-09] MEDS ORDERED: SODIUM CHLORIDE 0.9% 1000 ML IV SCH (08:00)
[2016-12-09] MEDS ORDERED: fentaNYL CITRATE 250 MCG/5 ML AMP ONE (09:09)
[2016-12-09] MEDS ORDERED: MIDAZOLAM HCL 2 MG/2 ML VIAL ONE ×2 (09:09→10:06)
[2016-12-09] MEDS ORDERED: LIDOCAINE 1%/EPINEPHrine 1:100,000 SOLN 20 ML VIAL ONE (09:25)
[2016-12-09 10:30] VITALS: BP 117/64; PULSE 91; RESP 20; TEMP 98; O2SAT 92
--- NOTE | 2016-12-09 10:38 | PD.RAD ---
Post Procedure Progress Note Pre Procedure Diagnosis: (1) Lung mass (2) Metastasis (3) Non-small cell cancer of right lung Post Procedure Diagnosis: (1) Non-small cell cancer of right lung (2) Lung mass (3) Metastasis Procedure Date: Dec 09, 2016 Supervising Radiologist: Bakari Gutiérrez Proceduralist/Assist: Michael Hardy, RT(R), Kalani iLndo, RT(R) Anesthesia: Local, Analgesia, Conscious Sedation Plan of Activity Patient to Unit: ROPU Patient Condition: Good See PACS Report for procedural detail/treatment Central Venous Access Device Procedure 1 Right Internal Jugular Infusaport Placement single lumen Georgian: 8 Bakari Gutiérrez MD Dec 09, 2016 10:38
[2016-12-09 10:45] VITALS: BP 116/79; PULSE 102; RESP 20; O2SAT 96
[2016-12-09] MEDS ORDERED: SODIUM CHLORIDE 0.9% FLUSH 10 ML FLUSH IVF PRN (10:45)
[2016-12-09 11:15] VITALS: BP 113/73; PULSE 102; RESP 20; O2SAT 96
[2016-12-09 11:45] VITALS: BP 116/74; PULSE 90; RESP 20; O2SAT 95
[2016-12-09 12:30] VITALS: BP 121/67; PULSE 90; RESP 20; O2SAT 96
--- NOTE | 2016-12-09 16:16 | RADRPT ---
EXAM DATE/TIME: 12/09/2016 09:44 [facility] COMPARISON: No previous studies available for comparison. INDICATIONS : Patient with history of lung cancer in need of [id number] placement. MEDICAL HISTORY : Lung cancer with metastatic disease, HTN, Migraines, Right kidney mass, Left adrenal nodule, Bony les ion left iliac wing SURGICAL HISTORY : Lung biopsy ENCOUNTER: Initial ACUITY: 4-6 months PAIN SCORE: 7/10 LOCATION: Right side mid-back FLUORO TIME: 0.5 minutes IMAGE SERIES: 1 SEDATION TIME: 60 minutes ACCESS: Right internal jugular vein SEDATION: 1.) 5 mg midazolam (Versed) IV 2.) 300 mcg fentanyl (Sublimaze) IV Prophylactic antibiotics were administered with appropriate pre-procedure timing. Vancomycin within 2 hours of procedure, Ancef (or alternative) within 1 hour of procedure. DEVICE: 1. 8 [place] single lumen Smart port with vortex PROCEDURE : 1. Continuous pulse oximetry and EKG monitoring. 2. Intravenous conscious sedation. 3. Ultrasound guidance for venous access. 4. Fluoroscopic guided implantable central venous port placement. The patient was placed supine. The neck was prepped in sterile fashion. Full sterile technique was u sed, including cap, mask, sterile gloves and gown, and a large sterile sheet. Hand hygiene and 2% ch lorhexidine Betadine was utilized per protocol for cutaneous antisepsis with appropriate dry time for site. The skin and subcutaneous tissues were infiltrated with local anesthetic solution. Under direct ultrasound guidance, central venous access was accomplished in the targeted vessel. The ultrasound images depicting access guidance were stored and saved to PACS for permanent record. A s ubcutaneous pocket was created using blunt dissection. The port was introduced to the pocket. The c atheter tubing was fed through a subcutaneous tunnel to the venotomy site. The catheter tubing was c ut to a suitable length and then was introduced through a valved Peel-Away sheath and positioned with catheter tubing tip at the cavo-atrial junction level. The pocket incision was closed with subcutic ular Vicryl suture. Steri-Strips were applied. The port was flushed and locked with heparin solutio n per protocol. Sterile dressing was applied to the site. The patient tolerated the procedure well. Conscious sedation was performed with the prescribed dosages and duration as above in the presence of an independent trained radiology nurse to assist in the monitoring of the patient. EKG and oximetry remained stable throughout the procedure. The patient tolerated the procedure well and there were no complications. The patient was sent to post anesthesia recovery in stable condition. CONCLUSION: Uncomplicated ultrasound and fluoroscopic guided implanted central venous port catheter placement as described in detail above. An 8 Wallis[place] Power port was placed. Bakari Gutiérrez MD on December 09, 2016 at 16:15 Board Certified Radiologist. This report was verified electronically.
== END 2016-12-09 12:30 | disposition home or self-care (01) ==
LOC: HROP 07:22 → HRIP 07:26 → HROP 12:30
PROVIDERS: ATTEND Internal Medicine
DX: C34.91 Malignant neoplasm of unspecified part of right bronchus or lung (principal); C79.9 Secondary malignant neoplasm of unspecified site; I10 Essential (primary) hypertension; G43.909 Migraine, unspecified, not intractable, without status migrainosus; N28.89 Other specified disorders of kidney and ureter; M89.9 Disorder of bone, unspecified
CPT/HCPCS: 36561; 76937; 77001; 99152; 99153; C1788; J0690; J1642; J2250; J3010; J3370; J7030; J7050

== ENCOUNTER 2017-03-30 14:36 | Inpatient (IN) | payer OTHER ==
[~2017-03-30] VITALS: Ht 172.7 cm; Wt 59.9 kg
[~2017-03-30 14:36] MED LIST changes: +MORP1TAB24 PO
[2017-03-30 14:37] VITALS: BP 92/48; PULSE 116; RESP 20; TEMP 98.5; O2SAT 96
[2017-03-30 15:37] LABS: AUTOMATED NEUTROPHIL # 5.8 TH/MM3 (1.8-7.7); BASOPHIL # 0.1 TH/MM3 (0-0.2); BASOPHIL % 1.3 % (0.0-2.0); EOSINOPHIL # 0.2 TH/MM3 (0-0.4); EOSINOPHIL % 2.6 % (0.0-4.0); HEMATOCRIT 29.3 % (39.0-51.0); LYMPH % 22.3 % (9.0-44.0); LYMPHOCYTE # 2.1 TH/MM3 (1.0-4.8); MEAN CELL VOLUME 88.3 FL (80.0-100.0); MEAN CORPUSCULAR HEMOGLOBIN 32.3 PG (27.0-34.0); MONO % 11.5 % (0.0-8.0); NEUT % 62.3 % (16.0-70.0); PLATELET COUNT 525 TH/MM3 (150-450); RED BLOOD COUNT 3.32 MIL/MM3 (4.50-5.90); RED CELL DISTRIBUTION WIDTH 15.8 % (11.6-17.2); WHITE BLOOD COUNT 9.3 TH/MM3 (4.0-11.0)
--- NOTE | 2017-03-30 15:41 | RADRPT ---
EXAM DATE/TIME: 03/30/2017 15:25 [facility] COMPARISON: CHEST SINGLE AP, May 13, 2016, 7:16. INDICATIONS : Short of breath MEDICAL HISTORY : Carcinoma, lung. Metastatic disease. SURGICAL HISTORY : [place] ENCOUNTER: Initial ACUITY: 2 days PAIN SCORE: 0/10 LOCATION: chest FINDINGS: PA and lateral views of the chest reveal a left apical pulmonary mass, right mid lung pulmonary mass, and hilar adenopathy. This is all new from the most recent chest x-ray of May 2016. The lungs ar e otherwise clear. No effusions or pneumothorax. A Port-A-Cath overlies the right chest. Heart is nor mal in size. Mild scoliotic curvature. CONCLUSION: Bilateral pulmonary masses and hilar adenopathy consistent with metastatic disease. No acute infiltra te or effusion. Ramón Flowers Jr., MD on March 30, 2017 at 15:36 Board Certified Radiologist. This report was verified electronically.
[2017-03-30 15:42] LABS: HEMO FLAGS AUTO DIFF; MEAN CORPUSCULAR HGB CONC 36.5 % (32.0-36.0)
[2017-03-30 15:47] LABS: PROTHROMBIN TIME - PATIENT 11.1 SEC (9.8-11.6)
[2017-03-30 16:05] LABS: ALT (GPT) 18 U/L (12-78); ANION GAP 5 MEQ/L (5-15); AST (GOT) 24 U/L (15-37); BLOOD UREA NITROGEN 8 MG/DL (7-18); CHLORIDE 98 MEQ/L (98-107); GLOMERULAR FILTRATION RATE 239 ML/MIN (>89); POTASSIUM 4.1 MEQ/L (3.5-5.1); SODIUM (NA) 132 MEQ/L (136-145)
[2017-03-30 16:07] LABS: ALKALINE PHOSPHATASE 87 U/L (45-117); TOTAL BILIRUBIN ADULT 0.2 MG/DL (0.2-1.0)
[2017-03-30 16:16] LABS: PLATELET ESTIMATE SMEAR HIGH (NORMAL); PLATELET MORPHOLOGY NORMAL (NORMAL); SCAN/DIFF AUTO DIFF CONFIRMED
--- NOTE | 2017-03-30 17:18 | PD ---
HPI Chief Complaint: Abnormal Results Time Seen by Provider: 17:14 Travel History International Travel<30 days: No Contact w/Intl Traveler<30days: No Traveled to known affect area: No History of Present Illness HPI This is a 51-year-old male who was sent here by his oncologist Dr. Hinojosa for admission. The patient has a history of stage IV non-small cell lung cancer. He presented yesterday to his oncologist for follow-up. He received one cycle of chemotherapy 2 weeks ago and per [address] Corona progress note he was referred here to be admitted to the hospital for further evaluation of generalized weakness, weight loss. He feels that he is cachectic and malnourished and will likely need TPN. In regards to review of systems, the patient is complaining of lower abdominal pain which is been ongoing for 10 months. He also has intractable generalized pain, currently receiving morphine as well as fentanyl patches but the pain persists. He has no primary care physician. He ambulates at home with a cane and a walker. He lives with his mother and stepbrother. He has no other complaints at this time. PFSH Past Medical History Blood Disorders: No Cancer: Yes (lung) Cardiovascular Problems: Yes Chemotherapy: Yes COPD: Yes (EMPHYSEMA) Diabetes: No Diminished Hearing: No Endocrine: No Genitourinary: No Hepatitis: No Hiatal Hernia: No Hypertension: Yes Immune Disorder: No Musculoskeletal: No Neurologic: No Psychiatric: No Reproductive: No Respiratory: Yes Thyroid Disease: No Past Surgical History Abdominal Surgery: No AICD: No Cardiac Surgery: No Ear Surgery: No Endocrine Surgery: No Eye Surgery: No Genitourinary Surgery: No Gynecologic Surgery: No Joint Replacement: No Oral Surgery: No Pacemaker: No Thoracic Surgery: No Social History Alcohol Use: Yes (DAILY 6 BEERS ) Tobacco Use: Yes (1PPD) Substance Use: Yes (pot) Allergies-Medications (Allergen,Severity, Reaction): Coded Allergies: No Known Allergies (Verified Adverse Reaction, Unknown, 03/30/17) Reported Meds & Prescriptions Reported Meds & Active Scripts Active Reported Xanax (Alprazolam) 0.5 Mg Tab 0.5 Mg PO Q4H PRN [fentanyl transdermal] Morphine ER (Morphine Sulfate) 15 Mg Tab 15 Mg PO BID PRN Review of Systems Except as stated in HPI: all other systems reviewed are Neg Physical Exam Narrative GENERAL: Frail cachectic-appearing male who is in no acute distress. SKIN: Warm and dry. HEAD: Atraumatic. Normocephalic. EYES: Pupils equal and round. No scleral icterus. No injection or drainage. ENT: No nasal bleeding or discharge. Mucous membranes pink and moist. NECK: Trachea midline. No JVD. CARDIOVASCULAR: Regular rate and rhythm. No murmur appreciated. RESPIRATORY: No accessory muscle use. Clear to auscultation. Breath sounds equal bilaterally. GASTROINTESTINAL: Abdomen soft, tender to palpation lower quadrants without guarding. MUSCULOSKELETAL: No obvious deformities. No clubbing. No cyanosis. No edema. NEUROLOGICAL: Awake and alert. No obvious cranial nerve deficits. Motor grossly within normal limits. Normal speech. PSYCHIATRIC: Appropriate mood and affect; insight and judgment normal. Data Data Last Documented VS Vital Signs Date Time Temp Pulse Resp B/P (MAP) Pulse Ox O2 Delivery O2 Flow Rate FiO2 03/30/17 14:37 98.5 116 20 92/48 (63) 96 Room Air Orders Orders Sepsis Workup Initiated (03/30/17 ) Electrocardiogram (03/30/17 14:56) Complete Blood Count With Diff (03/30/17 14:56) Comprehensive Metabolic Panel (03/30/17 14:56) Prothrombin Time / Inr (Pt) (03/30/17 14:56) Act Partial Throm Time (Ptt) (03/30/17 14:56) Lactic Acid Sepsis Protocol (03/30/17 14:56) Urinalysis - C+S If Indicated (03/30/17 14:56) Blood Culture (03/30/17 14:56) Chest, Pa & Lat (03/30/17 14:56) Admit Order (Ed Use Only) (03/30/17 17:42) Labs Laboratory Tests Test 03/30/17 15:15 White Blood Count 9.3 TH/MM3 Red Blood Count 3.32 MIL/MM3 Hemoglobin 10.7 GM/DL Hematocrit 29.3 % Mean Corpuscular Volume 88.3 FL Mean Corpuscular Hemoglobin 32.3 PG Mean Corpuscular Hemoglobin Concent 36.5 % Red Cell Distribution Width 15.8 % Platelet Count 525 TH/MM3 Mean Platelet Volume 6.6 FL Neutrophils (%) (Auto) 62.3 % Lymphocytes (%) (Auto) 22.3 % Monocytes (%) (Auto) 11.5 % Eosinophils (%) (Auto) 2.6 % Basophils (%) (Auto) 1.3 % Neutrophils # (Auto) 5.8 TH/MM3 Lymphocytes # (Auto) 2.1 TH/MM3 Monocytes # (Auto) 1.1 TH/MM3 Eosinophils # (Auto) 0.2 TH/MM3 Basophils # (Auto) 0.1 TH/MM3 CBC Comment AUTO DIFF Differential Comment AUTO DIFF CONFIRMED Platelet Estimate HIGH Platelet Morphology Comment NORMAL Prothrombin Time 11.1 SEC Prothromb Time International Ratio 1.0 RATIO Activated Partial Thromboplast Time 34.0 SEC Blood Urea Nitrogen 8 MG/DL Creatinine 0.38 MG/DL Random Glucose 98 MG/DL Total Protein 8.0 GM/DL Albumin 2.8 GM/DL Calcium Level 9.9 MG/DL Alkaline Phosphatase 87 U/L Aspartate Amino Transf (AST/SGOT) 24 U/L Alanine Aminotransferase (ALT/SGPT) 18 U/L Total Bilirubin 0.2 MG/DL Sodium Level 132 MEQ/L Potassium Level 4.1 MEQ/L Chloride Level 98 MEQ/L Carbon Dioxide Level 29.0 MEQ/L Anion Gap 5 MEQ/L Estimat Glomerular Filtration Rate 239 ML/MIN Lactic Acid Level 1.3 mmol/L MDM Medical Decision Making Medical Screen Exam Complete: Yes Emergency Medical Condition: Yes Medical Record Reviewed: Yes Differential Diagnosis Metastatic lung cancer, failure to thrive, intractable pain, dehydration, electrolyte abnormality Narrative Course Lab work performed in triage has been reviewed. The patient is being admitted for observation. Diagnosis Primary Impression: Failure to thrive in adult Additional Impression: Metastatic primary lung cancer Admitting Information Admitting Physician Requests: Observation Kiel Waller Mar 30, 2017 17:18
[2017-03-30] MEDS ORDERED: FENTANYL TRANSDERMAL (17:19)
[2017-03-30] MEDS ORDERED: ALPR.5 PO (17:19)
[2017-03-30] MEDS ORDERED: ACETAMINOPHEN 325 MG TAB PO PRN ×2 (18:15)
[2017-03-30] MEDS ORDERED: NALOXONE HCL 0.4 MG/ML AMP IV PUSH PRN (18:15)
[2017-03-30] MEDS ORDERED: MORPHINE SULFATE 4 MG/ML INJ IV PUSH PRN ×2 (18:15)
[2017-03-30] MEDS ORDERED: ONDANSETRON HCL 4 MG/2 ML VIAL IVP PRN (18:15)
[2017-03-30] MEDS ORDERED: PROCHLORPERAZINE 25 MG SUPP RECTAL PRN (18:15)
[2017-03-30] MEDS ORDERED: SENNOSIDES 8.6 MG TAB PO PRN (18:15)
[2017-03-30] MEDS ORDERED: SODIUM CHLORIDE 0.9% FLUSH 10 ML FLUSH IV FLUSH PRN ×2 (18:15→18:45)
[2017-03-30] MEDS ORDERED: MAGNESIUM HYDROXIDE SUSP 30 ML CUP PO PRN (18:15)
[2017-03-30] MEDS ORDERED: LACTULOSE SYRUP 20 GM/30 ML CUP PO PRN (18:15)
[2017-03-30] MEDS ORDERED: BISACODYL 10 MG SUPP RECTAL PRN (18:15)
[2017-03-30] MEDS ORDERED: RESP: ALBUTEROL 2.5 MG/IPRATROPIUM 0.5 MG NEB (PRN) NEB (18:30)
--- NOTE | 2017-03-30 18:30 | HHI.HP ---
[facility] Unknown Admission Diagnosis generalized weakness, metastatic cancer Diagnoses: (1) Failure to thrive in adult Diagnosis: Secondary (2) Smoker Diagnosis: Secondary (3) Metastatic primary lung cancer Diagnosis: Principal (4) Non-small cell cancer of right lung Diagnosis: Principal (5) Metastasis Diagnosis: Principal (6) Lung mass Diagnosis: Principal Travel History International Travel<30 Days: No Contact w/Intl Traveler <30 Da: No Traveled to Known Affected Are: No History of Present Illness This is a 51-year-old male who was sent here by his oncologist Dr. Hinojosa for admission. The patient has a history of stage IV non-small cell lung cancer. He presented yesterday to his oncologist for follow-up. He received one cycle of chemotherapy [address] Corona progress note he was referred here to be admitted to the hospital for further evaluation of generalized weakness, weight loss. He feels that he is cachectic and malnourished and will likely need TPN. In regards to review of systems, the patient is complaining of lower abdominal pain which is been ongoing for 10 months. He also has intractable generalized pain, currently receiving morphine as well as fentanyl patches but the pain persists. He has no primary care physician. He ambulates at home with a cane and a walker. He lives with his mother and stepbrother. He has no other complaints at this time. We will adjust his pain medications. We will consult palliative care We'll consult Review of Systems Constitutional: COMPLAINS OF: Fatigue, Weight loss, DENIES: Diaphoretic episodes, Fever, Weight gain, Chills, Dizziness, Change in appetite, Night Sweats Endocrine: DENIES: Heat/cold intolerance, Polydipsia, Polyuria Eyes: DENIES: Blurred vision, Diplopia, Eye inflammation Ears, nose, mouth, throat: DENIES: Tinnitus, Hearing loss, Vertigo, Nasal discharge Respiratory: COMPLAINS OF: Cough, Shortness of breath, DENIES: Apneas, Snoring , Wheezing, Hemoptysis, Sputum production Cardiovascular: DENIES: Chest pain, Palpitations, Syncope, Dyspnea on Exertion , PND Gastrointestinal: DENIES: Abdominal pain, Black stools, Bloody stools Musculoskeletal: COMPLAINS OF: Joint pain, Back pain, DENIES: Muscle aches, Stiffness, Joint Swelling Integumentary: DENIES: Abnormal pigmentation, Nail changes, Pruritus Hematologic/lymphatic: DENIES: Bruising, Lymphadenopathy Immunologic/allergic: DENIES: Eczema, Urticaria Neurologic: COMPLAINS OF: Abnormal gait, Poor Balance, DENIES: Headache, Localized weakness, Paresthesias, Seizures, Speech Problems, Tremor Psychiatric: COMPLAINS OF: Depression, DENIES: Anxiety, Confusion, Mood changes , Hallucinations, Agitation, Suicidal Ideation, Homicidal Ideation, Delusions Except as stated in HPI: all other systems reviewed are Neg Past Family Social History Past Medical History Stage IV lung cancer COPD Tobacco abuse Recent chemotherapy Cachexia Failure to thrive History of possible hypertension Past Surgical History Port placement right chest History of chemotherapy Reported Medications Reported Meds & Active Scripts Active Reported Xanax (Alprazolam) 0.5 Mg Tab 0.5 Mg PO Q4H PRN [fentanyl transdermal] Morphine ER (Morphine Sulfate) 15 Mg Tab 15 Mg PO BID PRN Allergies: Coded Allergies: No Known Allergies (Verified Adverse Reaction, Unknown, 03/30/17) Active Ordered Medications Current Medications Nicotine (Habitrol 14 Mg Patch.24 Hr) 1 patch DAILY T-DERMAL ; Start 03/30/17 at 18:15; Status UNV Miscellaneous Information 1 DAILY T-DERMAL ; Start 03/31/17 at 09:00; Status UNV Alprazolam (Xanax) 0.5 mg Q4H PRN PO ANXIETY; Start 03/30/17 at 18:15; Status UNV Morphine Sulfate (Oramorph Sr) 30 mg BID PO ; Start 03/30/17 at 21:00; Status UNV Sodium Chloride (NS Flush) 2 ml UNSCH PRN IV FLUSH FLUSH AFTER USING IV ACCESS ; Start 03/30/17 at 18:15; Status UNV Sodium Chloride (NS Flush) 2 ml BID IV FLUSH ; Start 03/30/17 at 21:00; Status UNV Acetaminophen (Tylenol) 650 mg Q4H PRN PO TEMP > 100.4; Start 03/30/17 at 18: 15; Status UNV Ondansetron HCl (Zofran Inj) 4 mg Q6H PRN IVP NAUSEA OR VOMITING; Start at 18:15; Status UNV Prochlorperazine (Compazine Supp) 25 mg Q12H PRN MT NAUSEA OR VOMITING; Start 03/30/17 at 18:15; Status UNV Zolpidem Tartrate (Ambien) 5 mg HS PRN PO INSOMNIA; Start 03/30/17 at 18:15; Status UNV Enoxaparin Sodium (Lovenox Inj) 30 mg Q24H SQ ; Start 03/30/17 at 18:15; Status UNV Acetaminophen (Tylenol) 650 mg Q6H PRN PO PAIN SCALE 1 TO 2; Start 03/30/17 at 18:15; Status UNV Oxycodone/ Acetaminophen (Percocet 5-325 Mg) 1 tab Q6H PRN PO PAIN SCALE 3 TO 5; Start 03/30/17 at 18:15; Status UNV Oxycodone/ Acetaminophen (Percocet 10-325 Mg) 1 tab Q6H PRN PO PAIN SCALE 6 TO 10; Start 03/30/17 at 18:15; Status UNV Morphine Sulfate (Morphine Inj) 2 mg Q3H PRN IV PUSH Pain 3-5; if unable to take PO; Start 03/30/17 at 18:15; Status UNV Morphine Sulfate (Morphine Inj) 4 mg Q3H PRN IV PUSH Pain 6-10;if unable to take PO; Start 03/30/17 at 18:15; Status UNV Morphine Sulfate (Morphine Inj) 4 mg Q3H PRN IV PUSH BREAKTHROUGH PAIN; Start 03/30/17 at 18:15; Status UNV Naloxone HCl (Narcan Inj) 0.4 mg UNSCH PRN IV PUSH SEE LABEL COMMENTS; Start 03/30/17 at 18:15; Status UNV Senna/Docusate Sodium (Juliet-Colace) 1 tab BID PO ; Start 03/30/17 at 21:00; Status UNV Magnesium Hydroxide (Milk Of Magnesia Liq) 30 ml Q12H PRN PO Mild constipation ; Start 03/30/17 at 18:15; Status UNV Sennosides (Senokot) 17.2 mg Q12H PRN PO Moderate constipation; Start at 18:15; Status UNV Bisacodyl (Dulcolax Supp) 10 mg DAILY PRN RECTAL SEVERE CONSITIPATION; Start 03/30/17 at 18:15; Status UNV Lactulose (Lactulose Liq) 30 ml DAILY PRN PO SEVERE CONSITIPATION; Start 03/30 at 18:15; Status UNV Fentanyl (Duragesic 50 Mcg Patch.72 Hr) 1 patch Q3D T-DERMAL ; Start 04/02/17 at 18:15; Status UNV Family History Tobacco abuse Social History Drinks 6 beers daily Smokes marijuana daily One pack per day of cigarettes used to smoke much more Physical Exam Vital Signs Vital Signs Date Time Temp Pulse Resp B/P (MAP) Pulse Ox O2 Delivery O2 Flow Rate FiO2 03/30/17 14:37 98.5 116 20 92/48 (63) 96 Room Air Physical Exam GENERAL: This is a cachectic male who appears much older than stated age and appears to be in moderate distress SKIN: No rashes, ecchymoses or lesions. Cool and dry. HEAD: Atraumatic. Normocephalic. No temporal or scalp tenderness. EYES: Pupils equal round and reactive. Extraocular motions intact. No scleral icterus. No injection or drainage. ENT: Nose without bleeding, purulent drainage or septal hematoma. Throat without erythema, tonsillar hypertrophy or exudate. Uvula midline. Airway patent. Tongue is midline NECK: Trachea midline. No JVD or lymphadenopathy. Supple, nontender, no meningeal signs. CARDIOVASCULAR: Regular rate and rhythm without murmurs, gallops, or rubs. Port right side of chest S1 and S2 no S3 or S4 RESPIRATORY: Breath sounds equal bilaterally. Rhonchi is bilaterally GASTROINTESTINAL: Abdomen soft, non-tender, nondistended. No hepato-splenomegaly , or palpable masses. No guarding. MUSCULOSKELETAL: Extremities without clubbing, cyanosis, or edema. No joint tenderness, effusion, or edema noted. No calf tenderness. Negative Homans sign bilaterally. NEUROLOGICAL: Awake and alert. Cranial nerves II through XII intact. Motor and sensory grossly within normal limits. 4 out of 5 muscle strength in all muscle groups. Normal speech. Insight and judgment is limited Mood and behavior somewhat appropriate Laboratory Laboratory Tests Test 03/30/17 15:15 White Blood Count 9.3 Red Blood Count 3.32 Hemoglobin 10.7 Hematocrit 29.3 Mean Corpuscular Volume 88.3 Mean Corpuscular Hemoglobin 32.3 Mean Corpuscular Hemoglobin Concent 36.5 Red Cell Distribution Width 15.8 Platelet Count 525 Mean Platelet Volume 6.6 Neutrophils (%) (Auto) 62.3 Lymphocytes (%) (Auto) 22.3 Monocytes (%) (Auto) 11.5 Eosinophils (%) (Auto) 2.6 Basophils (%) (Auto) 1.3 Neutrophils # (Auto) 5.8 Lymphocytes # (Auto) 2.1 Monocytes # (Auto) 1.1 Eosinophils # (Auto) 0.2 Basophils # (Auto) 0.1 CBC Comment AUTO DIFF Differential Comment AUTO DIFF CONFIRMED Platelet Estimate HIGH Platelet Morphology Comment NORMAL Prothrombin Time 11.1 Prothromb Time International Ratio 1.0 Activated Partial Thromboplast Time 34.0 Blood Urea Nitrogen 8 Creatinine 0.38 Random Glucose 98 Total Protein 8.0 Albumin 2.8 Calcium Level 9.9 Alkaline Phosphatase 87 Aspartate Amino Transf (AST/SGOT) 24 Alanine Aminotransferase (ALT/SGPT) 18 Total Bilirubin 0.2 Sodium Level 132 Potassium Level 4.1 Chloride Level 98 Carbon Dioxide Level 29.0 Anion Gap 5 Estimat Glomerular Filtration Rate 239 Lactic Acid Level 1.3 Date/Time Source Procedure Growth Status 03/30/17 15:20 Blood Peripheral Aerobic Blood Culture Pending Received 03/30/17 15:20 Blood Peripheral Anaerobic Blood Culture Pending Received Result Diagram: 03/30/17 1515 03/30/17 1515 Imaging Last Impressions Chest X-Ray 03/30/17 1456 Signed Impressions: Service Date/Time: Thursday, March 30, 2017 15:25 - CONCLUSION: Bilateral pulmonary masses and hilar adenopathy consistent with metastatic disease. No acute infiltrate or effusion. Ramón Flowers Jr., MD Caprini VTE Risk Assessment Caprini VTE Risk Assessment: Mod/High Risk (score >= 2) Caprini Risk Assessment Model Point Value = 1 Point Value = 2 Point Value = 3 Point Value = 5 Age 41-60 Minor surgery BMI > 25 kg/m2 Swollen legs Varicose veins or History of unexplained or recurrent spontaneous Oral contraceptives or hormone replacement Sepsis (< 1 month) Serious lung disease, including pneumonia (< 1 month) Abnormal pulmonary function Acute myocardial infarction Congestive heart failure (< 1 month) History of inflammatory bowel disease Medical patient at bed rest Age 61-74 Arthroscopic surgery Major open surgery (> 45 min) Laparoscopic surgery (> 45 min) Malignancy Confined to bed (> 72 hours) Immobilizing plaster cast Central venous access Age >= 75 History of VTE Family history of VTE Factor V Leiden Prothrombin [id number] Lupus anticoagulant Anticardiolipin antibodies Elevated serum homocysteine Heparin-induced thrombocytopenia Other congenital or acquired thrombophilia Stroke (< 1 month) Elective arthroplasty Hip, pelvis, or leg fracture Acute spinal cord injury (< 1 month) Prophylaxis Regimen Total Risk Factor Score Risk Level Prophylaxis Regimen 0-1 Low Early ambulation 2 Moderate Order ONE of the following: *Sequential Compression Device (SCD) *Heparin 5000 units SQ BID 3-4 Higher Order ONE of the following medications: *Heparin 5000 units SQ TID *Enoxaparin/Lovenox 40 mg SQ daily (WT < 150 kg, CrCl > 30 mL/min) *Enoxaparin/Lovenox 30 mg SQ daily (WT < 150 kg, CrCl > 10-29 mL/min) *Enoxaparin/Lovenox 30 mg SQ BID (WT < 150 kg, CrCl > 30 mL/min) AND/OR *Sequential Compression Device (SCD) 5 or more Highest Order ONE of the following medications: *Heparin 5000 units SQ TID (Preferred with Epidurals) *Enoxaparin/Lovenox 40 mg SQ daily (WT < 150 kg, CrCl > 30 mL/min) *Enoxaparin/Lovenox 30 mg SQ daily (WT < 150 kg, CrCl > 10-29 mL/min) *Enoxaparin/Lovenox 30 mg SQ BID (WT < 150 kg, CrCl > 30 mL/min) AND *Sequential Compression Device (SCD) Assessment and Plan Assessment and Plan Stage IV metastatic lung cancer will consult oncology. We'll consult palliative care. Will give appetite stimulants. We'll increase pain control. Failure to thrive we'll give appetite stimulants. Intractable pain will increase his pain medications. Electrolyte abnormality will replace We will ask palliative care to consult MEDICAL NONCOMPLIANCE Consider hospice versus palliative care Patient needs to consider making himself DO NOT RESUSCITATE Code Status Full code Discussed Condition With dISCUSSED WITH RN PATIENT AND PA from the ER Physician Certification 2 Midnight Certification Type: Admission for Inpatient Services Order for Inpatient Services The services are ordered in accordance with Medicare regulations or non- Medicare payer requirements, as applicable. In the case of services not specified as inpatient-only, they are appropriately provided as inpatient services in accordance with the 2-midnight benchmark. Estimated LOS (days): 3 days is the estimated time the patient will need to remain in the hospital, assuming treatment plan goals are met and no additional complications. Post-Hospital Plan: Not yet determined Clive Kemp DO Mar 30, 2017 18:30
[2017-03-30] MEDS ORDERED: LORazepam 2 MG/ML VIAL IV PUSH PRN ×4 (18:45)
[2017-03-30] MEDS ORDERED: LORazepam 2 MG TAB PO PRN (18:45)
[2017-03-30] MEDS ORDERED: HALOPERIDOL LACTATE 5 MG/ML AMP IM PRN ×2 (18:45)
[2017-03-30] MEDS ORDERED: FLUMAZENIL 0.5 MG/5 ML VIAL IV PUSH PRN (18:45)
[2017-03-30] MEDS ORDERED: LORazepam 1 MG TAB PO PRN (18:45)
[2017-03-30 20:00] VITALS: BP 97/58; PULSE 99; RESP 18; TEMP 97.7; O2SAT 97
[2017-03-30] MEDS: PANTOPRAZOLE SOD 40 MG DELAYED RELEASE TAB PO SCH (20:44)
[2017-03-30] MEDS: FOLIC ACID 1 MG TAB PO SCH (20:44)
[2017-03-30] MEDS: THIAMINE HCL 100 MG TAB PO SCH (20:44)
[2017-03-30] MEDS: MULTIVITAMINS/MINERALS THERAPEUTIC TAB PO SCH (20:44)
[2017-03-30] MEDS: NICOTINE 14 MG/24 HR PATCH T-DERMAL SCH (20:44)
[2017-03-30] MEDS: guaiFENesin E.R. 600 MG TAB PO SCH (20:44)
[2017-03-30] MEDS: DOCUSATE SODIUM 50 MG/SENNA 8.6 MG TAB PO SCH (20:44)
[2017-03-30] MEDS: MORPHINE SULFATE 15 MG CONTROLLED RELEASE TAB PO SCH (20:45)
[2017-03-30] MEDS: SODIUM CHLORIDE 0.9% FLUSH 10 ML FLUSH IV FLUSH SCH (20:48)
[2017-03-30] MEDS ORDERED: SODIUM CHLORIDE 0.9% FLUSH 10 ML FLUSH IV FLUSH SCH (21:00)
[2017-03-30] MEDS ORDERED: MEGESTROL ACETATE 40 MG TAB PO SCH (21:00)
[2017-03-30] MEDS: ENOXAPARIN SODIUM 30 MG/0.3 ML SYRINGE SQ SCH (21:00)
[2017-03-30 21:28] VITALS: PULSE 95
[2017-03-30] MEDS: ZOLPIDEM TARTRATE 5 MG TAB PO PRN (22:39)
[2017-03-30 22:58] LABS: MAGNESIUM 1.9 MG/DL (1.5-2.5)
[2017-03-30 23:46] VITALS: PULSE 84
[2017-03-31] VITALS (13 sets, daily range): BP systolic 83–106; BP diastolic 50–59; PULSE 87–106; RESP 12–18; TEMP 96.4–97.9; O2SAT 96–99
[2017-03-31] MEDS: ALPRAZolam 0.5 MG TAB PO PRN ×3 (03:58→23:02)
[2017-03-31 06:58] LABS: AUTOMATED NEUTROPHIL # 5.2 TH/MM3 (1.8-7.7); BASOPHIL # 0.1 TH/MM3 (0-0.2); BASOPHIL % 1.1 % (0.0-2.0); EOSINOPHIL # 0.3 TH/MM3 (0-0.4); EOSINOPHIL % 3.4 % (0.0-4.0); HEMATOCRIT 29.5 % (39.0-51.0); HEMO FLAGS DIFF FINAL; LYMPH % 22.6 % (9.0-44.0); LYMPHOCYTE # 1.9 TH/MM3 (1.0-4.8); MEAN CELL VOLUME 88.2 FL (80.0-100.0); MEAN CORPUSCULAR HEMOGLOBIN 30.7 PG (27.0-34.0); MEAN CORPUSCULAR HGB CONC 34.8 % (32.0-36.0); NEUT % 61.9 % (16.0-70.0); PLATELET COUNT 528 TH/MM3 (150-450); RED BLOOD COUNT 3.34 MIL/MM3 (4.50-5.90); RED CELL DISTRIBUTION WIDTH 15.9 % (11.6-17.2); WHITE BLOOD COUNT 8.4 TH/MM3 (4.0-11.0)
[2017-03-31 07:22] LABS: ANION GAP 5 MEQ/L (5-15); AST (GOT) 18 U/L (15-37); BICARBONATE 30.6 MEQ/L (21.0-32.0); BLOOD UREA NITROGEN 5 MG/DL (7-18); CHLORIDE 98 MEQ/L (98-107); GLOMERULAR FILTRATION RATE 281 ML/MIN (>89); POTASSIUM 3.8 MEQ/L (3.5-5.1); SODIUM (NA) 134 MEQ/L (136-145)
[2017-03-31 07:32] LABS: ALKALINE PHOSPHATASE 76 U/L (45-117); ALT (GPT) 15 U/L (12-78); FREE T4 1.38 NG/DL (0.76-1.46); TOTAL BILIRUBIN ADULT 0.3 MG/DL (0.2-1.0)
[2017-03-31] MEDS: SODIUM CHLOR 0.9% 1000 ML INJ 1,000 ML IV SCH ×2 (08:45→20:00)
[2017-03-31] MEDS: guaiFENesin E.R. 600 MG TAB PO SCH ×2 (08:47→21:15)
[2017-03-31] MEDS: MULTIVITAMINS/MINERALS THERAPEUTIC TAB PO SCH (08:47)
[2017-03-31] MEDS: THIAMINE HCL 100 MG TAB PO SCH (08:47)
[2017-03-31] MEDS: FOLIC ACID 1 MG TAB PO SCH (08:47)
[2017-03-31] MEDS: MORPHINE SULFATE 15 MG CONTROLLED RELEASE TAB PO SCH ×2 (08:48→21:16)
[2017-03-31] MEDS: PANTOPRAZOLE SOD 40 MG DELAYED RELEASE TAB PO SCH ×2 (08:48→21:15)
[2017-03-31] MEDS: NICOTINE 14 MG/24 HR PATCH T-DERMAL SCH (08:48)
[2017-03-31] MEDS: MEGESTROL ACETATE SUSP 400 MG/10 ML CUP PO SCH ×2 (08:49→16:12)
[2017-03-31] MEDS: DOCUSATE SODIUM 50 MG/SENNA 8.6 MG TAB PO SCH ×3 (08:50→21:15)
[2017-03-31] MEDS: SODIUM CHLORIDE 0.9% FLUSH 10 ML FLUSH IV FLUSH SCH ×2 (08:50→19:56)
[2017-03-31] MEDS: REMOVE OLD PATCH T-DERMAL SCH (08:57)
[2017-03-31] MEDS ORDERED: PNEUMOCOCCAL POLYVALENT INJ 25 MCG/0.5 ML SYR IM ONE (10:00)
--- NOTE | 2017-03-31 11:29 | HHI.PR ---
Subjective Remarks This is a 51-year-old male who was sent here by his oncologist Dr. Hinojosa for admission. The patient has a history of stage IV non-small cell lung cancer. He presented yesterday to his oncologist for follow-up. He received one cycle of chemotherapy 2 weeks [address] and per [address] Corona progress note he was referred here to be admitted to the hospital for further evaluation of generalized weakness, weight loss. He feels that he is cachectic and malnourished and will likely need TPN. In regards to review of systems, the patient is complaining of lower abdominal pain which is been ongoing for 10 months. He also has intractable generalized pain, currently receiving morphine as well as fentanyl patches but the pain persists. He has no primary care physician. He ambulates at home with a cane and a walker. He lives with his mother and stepbrother. He has no other complaints at this time. We will adjust his pain medications. We will consult palliative care We'll consult 03-31 DW RN AND PT AND TALKING WITH PALLIATIVE CARE TODAY PAIN IS BETTER CONTROLLED NOW THAT WE HAVE ADJUSTED HIS PAIN MEDICATIONS CAN USE HIS PORT NEEDED Objective Vitals Vital Signs Date Time Temp Pulse Resp B/P (MAP) Pulse Ox O2 Delivery O2 Flow Rate FiO2 03/31/17 08:39 92/55 (67) 03/31/17 08:00 97.3 91 18 83/55 (64) 99 03/31/17 04:00 96.4 91 18 90/50 (63) 96 03/31/17 00:00 97.9 87 16 103/59 (74) 97 03/30/17 23:46 84 03/30/17 21:28 95 03/30/17 20:00 97.7 99 18 97/58 (71) 97 03/30/17 19:07 03/30/17 14:37 98.5 116 20 92/48 (63) 96 Room Air I/O 03/30/17 03/30/17 03/30/17 03/31/17 03/31/17 03/31/17 07:00 15:00 23:00 07:00 15:00 23:00 Intake Total 100 ml 210 ml Balance 100 ml 210 ml Intake Oral 100 ml 210 ml # Voids 0 2 # Bowel Movements 0 0 Result Diagram: 03/31/17 0558 03/31/17 0558 Other Results Laboratory Tests Test 03/30/17 15:15 03/31/17 05:58 White Blood Count 9.3 TH/MM3 8.4 TH/MM3 Red Blood Count 3.32 MIL/MM3 3.34 MIL/MM3 Hemoglobin 10.7 GM/DL 10.3 GM/DL Hematocrit 29.3 % 29.5 % Mean Corpuscular Volume 88.3 FL 88.2 FL Mean Corpuscular Hemoglobin 32.3 PG 30.7 PG Mean Corpuscular Hemoglobin Concent 36.5 % 34.8 % Red Cell Distribution Width 15.8 % 15.9 % Platelet Count 525 TH/MM3 528 TH/MM3 Mean Platelet Volume 6.6 FL 6.5 FL Neutrophils (%) (Auto) 62.3 % 61.9 % Lymphocytes (%) (Auto) 22.3 % 22.6 % Monocytes (%) (Auto) 11.5 % 11.0 % Eosinophils (%) (Auto) 2.6 % 3.4 % Basophils (%) (Auto) 1.3 % 1.1 % Neutrophils # (Auto) 5.8 TH/MM3 5.2 TH/MM3 Lymphocytes # (Auto) 2.1 TH/MM3 1.9 TH/MM3 Monocytes # (Auto) 1.1 TH/MM3 0.9 TH/MM3 Eosinophils # (Auto) 0.2 TH/MM3 0.3 TH/MM3 Basophils # (Auto) 0.1 TH/MM3 0.1 TH/MM3 CBC Comment AUTO DIFF DIFF FINAL Differential Comment AUTO DIFF CONFIRMED Platelet Estimate HIGH Platelet Morphology Comment NORMAL Prothrombin Time 11.1 SEC Prothromb Time International Ratio 1.0 RATIO Activated Partial Thromboplast Time 34.0 SEC Blood Urea Nitrogen 8 MG/DL 5 MG/DL Creatinine 0.38 MG/DL 0.33 MG/DL Random Glucose 98 MG/DL 101 MG/DL Total Protein 8.0 GM/DL 7.3 GM/DL Albumin 2.8 GM/DL 2.5 GM/DL Calcium Level 9.9 MG/DL 9.6 MG/DL Alkaline Phosphatase 87 U/L 76 U/L Aspartate Amino Transf (AST/SGOT) 24 U/L 18 U/L Alanine Aminotransferase (ALT/SGPT) 18 U/L 15 U/L Total Bilirubin 0.2 MG/DL 0.3 MG/DL Sodium Level 132 MEQ/L 134 MEQ/L Potassium Level 4.1 MEQ/L 3.8 MEQ/L Chloride Level 98 MEQ/L 98 MEQ/L Carbon Dioxide Level 29.0 MEQ/L 30.6 MEQ/L Anion Gap 5 MEQ/L 5 MEQ/L Estimat Glomerular Filtration Rate 239 ML/MIN 281 ML/MIN Lactic Acid Level 1.3 mmol/L Phosphorus Level 4.0 MG/DL 3.7 MG/DL Magnesium Level 1.9 MG/DL 2.0 MG/DL Free Thyroxine 1.38 NG/DL Thyroid Stimulating Hormone 3rd Gen 1.030 uIU/ML Imaging Last Impressions Chest X-Ray 03/30/17 1456 Signed Impressions: Service Date/Time: Thursday, March 30, 2017 15:25 - CONCLUSION: Bilateral pulmonary masses and hilar adenopathy consistent with metastatic disease. No acute infiltrate or effusion. Ramón Flowers Jr., MD Objective Remarks GENERAL: AWAKE ALERT AND ORIENTED X 3 TALKATIVE AND COOPERATIVE QUITE CACHECTIC SKIN: Warm and dry. HEAD: Atraumatic. Normocephalic. EYES: Pupils equal and round. No scleral icterus. No injection or drainage. EOMI ENT: No nasal bleeding or discharge. Mucous membranes pink and moist. TONGUE MIDLINE NECK: Trachea midline. No JVD. SUPPLE CARDIOVASCULAR: Regular rate and rhythm. S1, S2 NO S3 OR S4 NO HEAVE OR THRILL OR RUB- PORT RIGHT CHEST RESPIRATORY: RHONCHI BL ALL [place]. Breath sounds equal bilaterally. GASTROINTESTINAL: Abdomen soft, non-tender, nondistended. Hepatic and splenic margins not palpable. MUSCULOSKELETAL: Extremities without clubbing, cyanosis, or edema. No obvious deformities. NEUROLOGICAL: Awake and alert. No obvious cranial nerve deficits. Motor grossly within normal limits. 4 out of 5 muscle strength in the arms and legs. Normal speech. PSYCHIATRIC: Appropriate mood and affect; insight and judgment normal. Medications and IVs Current Medications Nicotine (Habitrol 14 Mg Patch.24 Hr) 1 patch DAILY T-DERMAL Last administered on 03/31/17 08:48; Start 03/30/17 at 20:00 Miscellaneous Information 1 DAILY T-DERMAL Last administered on 03/31/17 08: 57; Start 03/31/17 at 09:00 Alprazolam (Xanax) 0.5 mg Q4H PRN PO ANXIETY Last administered on 03/31/17 03 :58; Start 03/30/17 at 18:15 Morphine Sulfate (Oramorph Sr) 30 mg BID PO Last administered on 03/31/17t 08: 48; Start 03/30/17 at 21:00 Sodium Chloride (NS Flush) 2 ml UNSCH PRN IV FLUSH FLUSH AFTER USING IV ACCESS ; Start 03/30/17 at 18:15; Stop 03/30/17 at 20:14; Status DC Sodium Chloride (NS Flush) 2 ml BID IV FLUSH ; Start 03/30/17 at 21:00; Stop 03/30/17 at 21:00; Status DC Acetaminophen (Tylenol) 650 mg Q4H PRN PO TEMP > 100.4; Start 03/30/17 at 18: 15 Ondansetron HCl (Zofran Inj) 4 mg Q6H PRN IVP NAUSEA OR VOMITING; Start at 18:15 Prochlorperazine (Compazine Supp) 25 mg Q12H PRN RECTAL NAUSEA OR VOMITING; Start 03/30/17 at 18:15 Zolpidem Tartrate (Ambien) 5 mg HS PRN PO INSOMNIA Last administered on t 22:39; Start 03/30/17 at 21:00 Enoxaparin Sodium (Lovenox Inj) 30 mg Q24H SQ ; Start 03/30/17 at 21:00 Acetaminophen (Tylenol) 650 mg Q6H PRN PO PAIN SCALE 1 TO 2; Start 03/30/17 at 18:15 Oxycodone/ Acetaminophen (Percocet 5-325 Mg) 1 tab Q6H PRN PO PAIN SCALE 3 TO 5; Start 03/30/17 at 18:15 Oxycodone/ Acetaminophen (Percocet 10-325 Mg) 1 tab Q6H PRN PO PAIN SCALE 6 TO 10; Start 03/30/17 at 18:15 Morphine Sulfate (Morphine Inj) 2 mg Q3H PRN IV PUSH Pain 3-5; if unable to take PO; Start 03/30/17 at 18:15 Morphine Sulfate (Morphine Inj) 4 mg Q3H PRN IV PUSH Pain 6-10;if unable to take PO; Start 03/30/17 at 18:15 Morphine Sulfate (Morphine Inj) 4 mg Q3H PRN IV PUSH BREAKTHROUGH PAIN; Start 03/30/17 at 18:15 Naloxone HCl (Narcan Inj) 0.4 mg UNSCH PRN IV PUSH SEE LABEL COMMENTS; Start 03/30/17 at 18:15 Senna/Docusate Sodium (Juliet-Colace) 1 tab BID PO Last administered on 20:44; Start 03/30/17 at 21:00 Magnesium Hydroxide (Milk Of Magnesia Liq) 30 ml Q12H PRN PO Mild constipation ; Start 03/30/17 at 18:15 Sennosides (Senokot) 17.2 mg Q12H PRN PO Moderate constipation; Start at 18:15 Bisacodyl (Dulcolax Supp) 10 mg DAILY PRN RECTAL SEVERE CONSITIPATION; Start 03/30/17 at 18:15 Lactulose (Lactulose Liq) 30 ml DAILY PRN PO SEVERE CONSITIPATION; Start 03/30 at 18:15 Fentanyl (Duragesic 50 Mcg Patch.72 Hr) 1 patch Q3D T-DERMAL ; Start 04/02/17 at 09:00 Guaifenesin (Mucinex Er) 600 mg BID PO Last administered on 03/31/17 08:47; Start 03/30/17 at 21:00 Albuterol/ Ipratropium (Duoneb Neb) 1 ampule Q4HR NEB PRN NEB SHORTNESS OF BREATH; Start 03/30/17 at 18:30 Dronabinol (Marinol) 5 mg BID@11,16 PO ; Start 03/31/17 at 11:00 Megestrol Acetate (Megace) 400 mg Q12HR PO ; Start 03/30/17 at 21:00; Stop at 22:14; Status DC Pantoprazole Sodium (Protonix) 40 mg Q12HR PO Last administered on 03/31/17 08:48; Start 03/30/17 at 21:00 Flumazenil (Romazicon Inj) 0.2 mg Q1M PRN IV PUSH SEE LABEL COMMENTS; Start at 18:45 Lorazepam (Ativan) 1 mg Q4H PRN PO CIWA 8 - 10; Start 03/30/17 at 18:45 Lorazepam (Ativan Inj) 1 mg Q4H PRN IV PUSH CIWA 8 - 10; Start 03/30/17 at 18: 45 Lorazepam (Ativan) 2 mg Q2H PRN PO CIWA 11-14; Start 03/30/17 at 18:45 Lorazepam (Ativan Inj) 2 mg Q2H PRN IV PUSH CIWA 11-14; Start 03/30/17 at 18: 45 Lorazepam (Ativan Inj) 2 mg Q1H PRN IV PUSH CIWA 15-20; Start 03/30/17 at 18: 45 Lorazepam (Ativan Inj) 2 mg Q15M PRN IV PUSH CIWA > 20; Start 03/30/17 at 18: 45 Haloperidol Lactate (Haldol Inj) 2 mg Q15M PRN IM SEE LABEL COMMENTS; Start at 18:45 Sodium Chloride (NS Flush) 2 ml UNSCH PRN IV FLUSH FLUSH AFTER USING IV ACCESS ; Start 03/30/17 at 18:45 Sodium Chloride (NS Flush) 2 ml BID IV FLUSH Last administered on 03/31/17 08 :50; Start 03/30/17 at 21:00 Folic Acid (Folate) 1 mg DAILY PO Last administered on 03/31/17 08:47; Start 03/30/17 at 20:00; Stop 04/04/17 at 19:59 Thiamine HCl (Vitamin B1) 100 mg DAILY PO Last administered on 03/31/17 08:47 ; Start 03/30/17 at 20:15 Multivitamins/ Minerals Therapeutic (Theragran M Tab) 1 tab DAILY PO Last administered on 03/31/17 08:47; Start 03/30/17 at 20:00; Stop 04/04/17 at 19: 59 Haloperidol Lactate (Haldol Inj) 2 mg Q15M PRN IM SEE LABEL COMMENTS; Start at 18:45; Stop 03/30/17 at 19:52; Status DC Pneumococcal Polyvalent Vaccine (Pneumovax-23 Inj) 25 mcg ONCE ONCE IM ; Start 03/31/17 at 10:00; Stop 03/31/17 at 10:01; Status Cancel Megestrol Acetate (Megace Liq) 400 mg BID@0900,1700 PO Last administered on 08:49; Start 03/31/17 at 09:00 Sodium Chloride 1,000 ml @ 100 mls/hr Q10H IV Last administered on 11/30/17at 08:45; Start 03/31/17 at 08:45 A/P Problem List: (1) Failure to thrive in adult ICD Code: R62.7 - Adult failure to thrive Status: Acute (2) Smoker ICD Code: F17.200 - Nicotine dependence, unspecified, uncomplicated Status: Acute (3) Metastatic primary lung cancer ICD Code: C34.90 - Malignant neoplasm of unspecified part of unspecified bronchus or lung Status: Acute (4) Non-small cell cancer of right lung ICD Code: C34.91 - Malignant neoplasm of unspecified part of right bronchus or lung Status: Acute (5) Metastasis ICD Code: C79.9 - Secondary malignant neoplasm of unspecified site Status: Acute (6) Lung mass ICD Code: R91.8 - Other nonspecific abnormal finding of lung field Status: Acute Assessment and Plan Stage IV metastatic lung cancer will consult oncology. We'll consult palliative care. Will give appetite stimulants. We'll increase pain control. Failure to thrive we'll give appetite stimulants. Intractable pain will increase his pain medications. Electrolyte abnormality will replace We will ask palliative care to consult MEDICAL NONCOMPLIANCE Consider hospice versus palliative care Patient needs to consider making himself DO NOT RESUSCITATE BORDERLINE HYPOTENSION- CONTINUE IV FLUIDS NEEDED SO CAN GET HIS PAIN MEDICATIONS SPEAKING WITH PALLIATIVE CARE TODAY - Discharge Planning NEEDS ONCOLOGY AND PALLIATIVE CARE EVALUATIONS AND MORE INFO Clive Kemp DO Mar 31, 2017 11:29
[2017-03-31] MEDS: DRONABINOL 5 MG CAP PO SCH ×2 (12:02→16:12)
--- NOTE | 2017-03-31 13:57 | PD.CONS ---
Consult Service Palliative Care Consult Requested By Dr. Kemp. Primary Care Physician Unknown Reason for Consultation a. To assist with evaluation and management of symptoms including: Pain, decreased appetite, constipation. b. To assist medical decision maker(s) with: better understanding of current medical conditions; weighing benefits/burdens of medical treatment options; making medical treatment decisions. . HPI History of Present Illness Mr. Fink is a 51-year-old male with a medical history significant for stage IV lung cancer. Patient presented to ED on 03/30/17 from his oncologist office for evaluation of worsening generalized weakness and weight loss. Patient with lower abdominal pain secondary to burden of disease. ED workup to include chest x-ray revealing bilateral pulmonary masses and hilar adenopathy consistent with metastatic disease. No acute infiltrate or effusion noted. Laboratory workup revealing WBC 9.3, Hgb is stable at 10.7, platelet count 525. Sodium 132, potassium 4.1, BUN/creatinine 8/0.3. Liver enzymes within normal limits. Albumin 2.8. Patient was admitted for further monitoring and management. Reviewed patient's past medical history. Patient was diagnosed with non-small cell carcinoma during acute hospitalization from 05/11/16 to 05/13/16 where he presented with complaints of shortness of breath and near syncope episode. CTA revealing right hilar mass and multiple irregular pulmonary masses. Patient underwent uncomplicated CT-guided biopsy on 05/12/16, pathology confirming non- small cell neoplasm. Patient was recommended to follow-up with oncology, Patient presented to ED on 11/25/16 with complaints of abdominal pain radiating to his back. Abdomen/pelvis CT 11/25/16 revealing 5.4 cm mass adjusting to midpole of right kidney, 2.2 cm Lytic lesion to left iliac wing and 2.4 cm left adrenal nodule likely representing metastatic disease. Patient was seen by oncology, Dr. Hinojosa on 12/03/16. Underwent renal biopsy on 12/22/16 revealing adenocarcinoma. Patient will continue progressive decline in his performance status. He received 1 cycle of chemotherapy on January 2017, reporting compliance with clinical visits. He presented to oncology visit on 03/30/17 where he was referred to the ED secondary to significant weight loss, intractable abdominal pain and weakness. Patient not likely a candidate for additional systemic therapy given poor performance status. Palliative care has been consulted for further clarifications of goals of care. Patient seen in his room. He was resting in bed in no acute distress. Patient endorsing significant weight loss of approximately 50 pounds since May of this year. Reporting anorexia, poor appetite. Only eating sips and bites at home. Endorsing abdominal pain to right flank, pain describe as sharp/ stabbing. Currently at 6/10. Home regimen of fentanyl patch 50 mcg and morphine 30 mg q4hr PRN, taking an average of 4-6 pills daily. Patient reports that he was on morphine ER 30 mg twice a day but was discontinued recently given increased pain. Patient endorsing shortness of breath on physical exertion, frequent constipation. Denies nausea or vomiting. In this first visit, introduced the role of palliative care in regards to symptom management as well as support with advanced directives and goals of care. Patient receptive to my visit. Obtained a past medical history and psychosocial history. Reviewed events leading to this hospitalization, clinical course and current medical management. Gently discussed with patient that his disease is metastatic and is not curable, no longer a candidate for additional palliative chemotherapy given poor performance status. Patient verbalized being fully aware of his terminal condition, appreciates ruth conversation. Patient verbalize his goal of therapy is for symptom management, mainly control of pain. Hospice philosophy and benefits introduced, patient asking appropriate questions regarding hospice eligibility and benefits. Discussed risks, benefits and limitations of CPR, intubation and mechanical ventilation given terminal condition. Patient electing to remain full code, may consider hospice in the future should his symptom burden continues to increase. Patient's stepmother Radha and stepbrother Michael at bedside during my visit. Assisted patient with completion of designation of healthcare surrogate. . Function/Cognitive Trajectory Patient residing in private home with his stepmother and his stepbrother. Profound physical deconditioning, progressive worsening performance status since June of this year. Ambulating with a roller walker, significant pain and shortness of breath with exertion. Reports being independent with all ADLs. No cognitive deficit observed or reported. . Review of Systems Constitutional: COMPLAINS OF: Fatigue, Weight loss, Change in appetite, Pain, Generalized weakness, DENIES: Fever Endocrine: DENIES: Heat/cold intolerance Eyes: DENIES: Eye pain, Vision loss Ears, nose, mouth, throat: DENIES: Nasal discharge, Oral lesions, Ear Pain, Running Nose Respiratory: COMPLAINS OF: Shortness of breath, DENIES: Cough, Hemoptysis Cardiovascular: COMPLAINS OF: Chest pain, Dyspnea on Exertion, DENIES: Syncope , Lower Extremity Edema Gastrointestinal: COMPLAINS OF: Abdominal pain, Constipation, Anorexia, DENIES : Nausea, Vomiting Genitourinary: COMPLAINS OF: Sexual dysfunction, DENIES: Penile Discharge Musculoskeletal: COMPLAINS OF: Back pain, DENIES: Muscle aches, Neck pain Integumentary: DENIES: Abnormal pigmentation, Rash Hematologic/Lymphatics: COMPLAINS OF: Bruising Immunologic/Allergic: DENIES: Eczema Neurologic: COMPLAINS OF: Abnormal gait, DENIES: Speech Problems, Tremor, Poor Balance Psychiatric: COMPLAINS OF: Anxiety, Depression, DENIES: Hallucinations, Agitation Past Family Social History Coded Allergies: No Known Allergies (Verified Allergy, Unknown, 03/30/17) Past Medical History Stage IV lung cancer COPD Tobacco abuse Recent chemotherapy Cachexia Failure to thrive Hypertension Migraine headaches . Past Surgical History Port placement right chest Lung and kidney biopsy . Reported Medications Xanax (Alprazolam) 0.5 Mg Tab 0.5 Mg PO Q4H PRN [fentanyl transdermal] Morphine ER (Morphine Sulfate) 15 Mg Tab 15 Mg PO BID PRN . Current Medications Medications (Trade) Dose Ordered Sig/Martha Route Start Time Stop Time Status Last Admin (Habitrol 14 Mg Patch.24 Hr) 1 patch DAILY T-DERMAL 03/30/17 20:00 03/31/17 08:48 Miscellaneous Information 1 DAILY T-DERMAL 03/31/17 09:00 03/31/17 08:57 (Xanax) 0.5 mg Q4H PRN PO 03/30/17 18:15 03/31/17 03:58 (Oramorph Sr) 30 mg BID PO 03/30/17 21:00 03/31/17 08:48 (Tylenol) 650 mg Q4H PRN PO 03/30/17 18:15 (Zofran Inj) 4 mg Q6H PRN IVP 03/30/17 18:15 (Compazine Supp) 25 mg Q12H PRN RECTAL 03/30/17 18:15 (Ambien) 5 mg HS PRN PO 03/30/17 21:00 03/30/17 22:39 (Lovenox Inj) 30 mg Q24H SQ 03/30/17 21:00 (Tylenol) 650 mg Q6H PRN PO 03/30/17 18:15 (Percocet 5-325 Mg) 1 tab Q6H PRN PO 03/30/17 18:15 (Percocet 10-325 Mg) 1 tab Q6H PRN PO 03/30/17 18:15 (Morphine Inj) 2 mg Q3H PRN IV PUSH 03/30/17 18:15 (Morphine Inj) 4 mg Q3H PRN IV PUSH 03/30/17 18:15 (Morphine Inj) 4 mg Q3H PRN IV PUSH 03/30/17 18:15 (Narcan Inj) 0.4 mg UNSCH PRN IV PUSH 03/30/17 18:15 (Juliet-Colace) 1 tab BID PO 03/30/17 21:00 03/31/17 12:03 (Milk Of Magnesia Liq) 30 ml Q12H PRN PO 03/30/17 18:15 (Senokot) 17.2 mg Q12H PRN PO 03/30/17 18:15 (Dulcolax Supp) 10 mg DAILY PRN RECTAL 03/30/17 18:15 (Lactulose Liq) 30 ml DAILY PRN PO 03/30/17 18:15 (Duragesic 50 Mcg Patch.72 Hr) 1 patch Q3D T-DERMAL 04/02/17 09:00 (Mucinex Er) 600 mg BID PO 03/30/17 21:00 03/31/17 08:47 (Duoneb Neb) 1 ampule Q4HR NEB PRN NEB 03/30/17 18:30 (Marinol) 5 mg BID@11,16 PO 03/31/17 11:00 03/31/17 12:02 (Protonix) 40 mg Q12HR PO 03/30/17 21:00 03/31/17 08:48 (Romazicon Inj) 0.2 mg Q1M PRN IV PUSH 03/30/17 18:45 (Ativan) 1 mg Q4H PRN PO 03/30/17 18:45 (Ativan Inj) 1 mg Q4H PRN IV PUSH 03/30/17 18:45 (Ativan) 2 mg Q2H PRN PO 03/30/17 18:45 (Ativan Inj) 2 mg Q2H PRN IV PUSH 03/30/17 18:45 (Ativan Inj) 2 mg Q1H PRN IV PUSH 03/30/17 18:45 (Ativan Inj) 2 mg Q15M PRN IV PUSH 03/30/17 18:45 (Haldol Inj) 2 mg Q15M PRN IM 03/30/17 18:45 (NS Flush) 2 ml UNSCH PRN IV FLUSH 03/30/17 18:45 (NS Flush) 2 ml BID IV FLUSH 03/30/17 21:00 03/31/17 08:50 (Folate) 1 mg DAILY PO 03/30/17 20:00 04/04/17 19:59 03/31/17 08:47 (Vitamin B1) 100 mg DAILY PO 03/30/17 20:15 03/31/17 08:47 (Theragran M Tab) 1 tab DAILY PO 03/30/17 20:00 04/04/17 19:59 03/31/17 08:47 (Megace Liq) 400 mg BID@0900,1700 PO 03/31/17 09:00 03/31/17 08:49 Sodium Chloride 1,000 ml @ 100 mls/hr Q10H IV 03/31/17 08:45 03/31/17 08:45 Family History Tobacco abuse and heart disease. . Substance Use Tobacco: Active smoker. Smokes one pack per day. Alcohol: Reports consuming 6 alcoholic drinks daily. Prescription med abuse: Denies. Illicits: Smokes marijuana daily. . Psychosocial History Patient originally from [place]. Moved to [place] in 1975. He is , has 8 children ages 35 years old to 16 years old. 7 boys and 1 girl, residing in [facility]. 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 No service reported. . Spiritual/Cultural Factors No jainism affiliations. . Living Will: Never completed Health Care Surrogate: Copy in medical record Durable Power of Sales Professional: Never completed Date completed: 03/31/17. . Health Care Surrogate(s): Patient designated his stepmother Radha Zabala as healthcare surrogate decision- maker, alternate stepbrother Michael Zabala. . Today's verbally stated goals: Full code. Patient wishing for symptom management, may consider hospice in the future. . Family/friends goals: Family supportive of patient's wishes. . Ethical and Legal Issues No ethical legal issues identified. . Physical Exam Vital Signs Date Time Temp Pulse Resp B/P (MAP) Pulse Ox O2 Delivery O2 Flow Rate FiO2 03/31/17 12:21 98 21 03/31/17 08:39 92/55 (67) 03/31/17 08:00 97.3 91 18 83/55 (64) 99 03/31/17 04:00 96.4 91 18 90/50 (63) 96 03/31/17 00:00 97.9 87 16 103/59 (74) 97 03/30/17 23:46 84 03/30/17 21:28 95 03/30/17 20:00 97.7 99 18 97/58 (71) 97 03/30/17 19:07 03/30/17 14:37 98.5 116 20 92/48 (63) 96 Room Air Exam CONSTITUTIONAL/GENERAL: This is a cachectic male requesting in no apparent distress. Patient appears much older than stated age. TUBES/LINES/DRAINS: Right MediPort accessed. SKIN: No jaundice, rashes, or lesions. No wounds seen anteriorly. Skin temperature appropriate. Not diaphoretic. HEAD: Atraumatic. Normocephalic. Bilateral temporal wasting. EYES: Pupils equal and round and reactive. Extraocular motions intact. No scleral icterus. No injection or drainage. Fundi not examined. ENT: Hearing grossly normal. Nose without bleeding or purulent drainage. Moist oral mucosa. NECK: Trachea midline. Supple, nontender. CARDIOVASCULAR: Regular rate and rhythm without murmurs, gallops, or rubs. No JVD. Peripheral pulses symmetric. RESPIRATORY/CHEST: Symmetric, unlabored respirations. Clear to auscultation. Breath sounds equal bilaterally. No wheezes, rales, or rhonchi. GASTROINTESTINAL: Abdomen soft, tender, nondistended. No guarding. Bowel sounds present. GENITOURINARY: Without palpable bladder distension. MUSCULOSKELETAL: Extremities without clubbing, cyanosis, or edema. No mottling or clubbing. Muscle wasting to all 4 extremities. NEUROLOGICAL: Awake and alert. Motor and sensory grossly within normal limits. Follows commands. Cognitively sharp. Moves all extremities. PSYCHIATRIC: No obvious anxiety/depression. Calm, cooperative. . Diagnostic Tests Laboratory Laboratory Tests Test 03/30/17 15:15 03/31/17 05:58 White Blood Count 9.3 TH/MM3 (4.0-11.0) 8.4 TH/MM3 (4.0-11.0) Red Blood Count 3.32 MIL/MM3 (4.50-5.90) 3.34 MIL/MM3 (4.50-5.90) Hemoglobin 10.7 GM/DL (13.0-17.0) 10.3 GM/DL (13.0-17.0) Hematocrit 29.3 % (39.0-51.0) 29.5 % (39.0-51.0) Mean Corpuscular Volume 88.3 FL (80.0-100.0) 88.2 FL (80.0-100.0) Mean Corpuscular Hemoglobin 32.3 PG (27.0-34.0) 30.7 PG (27.0-34.0) Mean Corpuscular Hemoglobin Concent 36.5 % (32.0-36.0) 34.8 % (32.0-36.0) Red Cell Distribution Width 15.8 % (11.6-17.2) 15.9 % (11.6-17.2) Platelet Count 525 TH/MM3 (150-450) 528 TH/MM3 (150-450) Mean Platelet Volume 6.6 FL (7.0-11.0) 6.5 FL (7.0-11.0) Neutrophils (%) (Auto) 62.3 % (16.0-70.0) 61.9 % (16.0-70.0) Lymphocytes (%) (Auto) 22.3 % (9.0-44.0) 22.6 % (9.0-44.0) Monocytes (%) (Auto) 11.5 % (0.0-8.0) 11.0 % (0.0-8.0) Eosinophils (%) (Auto) 2.6 % (0.0-4.0) 3.4 % (0.0-4.0) Basophils (%) (Auto) 1.3 % (0.0-2.0) 1.1 % (0.0-2.0) Neutrophils # (Auto) 5.8 TH/MM3 (1.8-7.7) 5.2 TH/MM3 (1.8-7.7) Lymphocytes # (Auto) 2.1 TH/MM3 (1.0-4.8) 1.9 TH/MM3 (1.0-4.8) Monocytes # (Auto) 1.1 TH/MM3 (0-0.9) 0.9 TH/MM3 (0-0.9) Eosinophils # (Auto) 0.2 TH/MM3 (0-0.4) 0.3 TH/MM3 (0-0.4) Basophils # (Auto) 0.1 TH/MM3 (0-0.2) 0.1 TH/MM3 (0-0.2) CBC Comment AUTO DIFF DIFF FINAL Differential Comment AUTO DIFF CONFIRMED Platelet Estimate HIGH (NORMAL) Platelet Morphology Comment NORMAL (NORMAL) Prothrombin Time 11.1 SEC (9.8-11.6) Prothromb Time International Ratio 1.0 RATIO Activated Partial Thromboplast Time 34.0 SEC (24.3-30.1) Blood Urea Nitrogen 8 MG/DL (7-18) 5 MG/DL (7-18) Creatinine 0.38 MG/DL (0.60-1.30) 0.33 MG/DL (0.60-1.30) Random Glucose 98 MG/DL (74-106) 101 MG/DL (74-106) Total Protein 8.0 GM/DL (6.4-8.2) 7.3 GM/DL (6.4-8.2) Albumin 2.8 GM/DL (3.4-5.0) 2.5 GM/DL (3.4-5.0) Calcium Level 9.9 MG/DL (8.5-10.1) 9.6 MG/DL (8.5-10.1) Alkaline Phosphatase 87 U/L (45-117) 76 U/L (45-117) Aspartate Amino Transf (AST/SGOT) 24 U/L (15-37) 18 U/L (15-37) Alanine Aminotransferase (ALT/SGPT) 18 U/L (12-78) 15 U/L (12-78) Total Bilirubin 0.2 MG/DL (0.2-1.0) 0.3 MG/DL (0.2-1.0) Sodium Level 132 MEQ/L (136-145) 134 MEQ/L (136-145) Potassium Level 4.1 MEQ/L (3.5-5.1) 3.8 MEQ/L (3.5-5.1) Chloride Level 98 MEQ/L (98-107) 98 MEQ/L (98-107) Carbon Dioxide Level 29.0 MEQ/L (21.0-32.0) 30.6 MEQ/L (21.0-32.0) Anion Gap 5 MEQ/L (5-15) 5 MEQ/L (5-15) Estimat Glomerular Filtration Rate 239 ML/MIN (>89) 281 ML/MIN (>89) Lactic Acid Level 1.3 mmol/L (0.4-2.0) Phosphorus Level 4.0 MG/DL (2.5-4.9) 3.7 MG/DL (2.5-4.9) Magnesium Level 1.9 MG/DL (1.5-2.5) 2.0 MG/DL (1.5-2.5) Free Thyroxine 1.38 NG/DL (0.76-1.46) Thyroid Stimulating Hormone 3rd Gen 1.030 uIU/ML (0.358-3.740) Result Diagram: 03/31/17 0558 03/31/17 0558 Microbiology Microbiology Date/Time Source Procedure Growth Status 03/30/17 15:20 Blood Peripheral Aerobic Blood Culture - Preliminary NO GROWTH IN 1 DAY Resulted 03/30/17 15:20 Blood Peripheral Anaerobic Blood Culture - Preliminary NO GROWTH IN 1 DAY Resulted 03/30/17 15:15 Blood Peripheral Aerobic Blood Culture - Preliminary NO GROWTH IN 1 DAY Resulted 03/30/17 15:15 Blood Peripheral Anaerobic Blood Culture - Preliminary NO GROWTH IN 1 DAY Resulted Imaging Last Impressions Chest X-Ray 03/30/17 9966 Signed Impressions: Service Date/Time: Thursday, March 30, 2017 15:25 - CONCLUSION: Bilateral pulmonary masses and hilar adenopathy consistent with metastatic disease. No acute infiltrate or effusion. Ramón Flowers Jr., MD Patient/Family Conference Present at Family Conference: Patient, stepmother Radha and stepbrother Michael. Family Conference Time (mins): 46 Family Conference Location: Bedside Issues Discussed: * Palliative care role, purpose, approach * Additional medical, psychosocial, and spiritual history * Patients general health, functional status, and cognitive changes in the months leading up to the current hospitalization * Patient/family understanding of the current medical problems -metastatic lung cancer * Patient/family understanding of prognosis -poor overall prognosis for a prolonged survival * Patients goals of care as best understood from advance directives and/or conversations and/or values * Current medical treatment options and benefits/burdens of those options * Likely scenarios comparing ongoing aggressive care with a transition to comfort measures only * Questions answered to the best of my ability * Palliative care contact information provided * Hospice philosophy and benefits * Risks, benefits and limitations of CPR, intubation and mechanical ventilation given terminal condition . Assessment and Plan Disease Oriented Problem List: (1) Metastatic primary lung cancer (2) Bone metastases (3) Renal metastasis (4) Cachexia (5) Failure to thrive in adult (6) Physical deconditioning Symptom Scale: (1) Pain 0-10 Scale: 6 Comment: Secondary to burden of disease. (2) Dyspnea 0-10 Scale: 3 Comment: Lung cancer. (3) Constipation 0-10 Scale: Unable to quantify (4) Debility 0-10 Scale: Unable to quantify Pertinent Non-Medical Issues Psychosocial: Patient originally from [place]. Moved to [place] in 1975. He is , has 8 children ages 35 years old to 16 years old. 7 boys and 1 girl, residing in [facility]. 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 No service reported. Spiritual: No jainism affiliation. Legal: Designation of healthcare surrogate completed. Ethical issues impacting care: No ethical legal issues identified. . Important Contacts Stepmother/[facility] Radha //Sagrario , . Stepbrother/[facility] //Michael Zabala , . . Prognosis Mr. Fink is a 51-year-old male with a medical history significant for stage IV lung cancer with bone and renal metastasis. Patient with progressive clinical decline to include significant weight loss, cachexia, worsening debility and profound physical deconditioning. Patient no longer a candidate for systemic therapy given poor performance status. Patient overall prognosis for a prolonged survival is poor. Patient appropriate for hospice should he elects comfort-directed care. . Code Status: Full Code Plan * CODE STATUS: Full code. Risks, benefits and limitations of CPR, intubation and mechanical ventilation discussed at length with patient given terminal condition. * HEALTHCARE DECISION-MAKING: Patient participating in medical decision-making. He appears to have a good understanding of his terminal condition and limitations of treatment. Retains the ability to weight benefits versus burdens of treatment options. Has designated his stepmother Radha Zabala as primary healthcare surrogate decision maker, alternate HCS is his stepbrother Michael Zabala. * GOALS OF CARE: Patient wishing to pursue aggressive management to include full code. He understands that he may not be a candidate for any additional systemic palliative chemotherapy given poor performance status, progression of illness. Verbalized that his goal is for an improved quality of life, mainly pain control. Hospice philosophy and benefits introduced and discussed at length. Patient to consider hospice should his symptom burden continues to increase or there is additional functional decline. * SYMPTOMS: = Pain, secondary to burden of disease. Lung cancer with liver bony and kidney metastasis. CT of abdomen/pelvis in October revealing 2.2 cm Lytic lesion to left iliac wing. Patient endorsing abdominal pain to right flank and hip, pain describe as sharp/stabbing. Currently at 10/09. Home regimen of fentanyl patch 50 mcg and morphine 30 mg q4hr PRN, taking an average of 4-6 pills daily. Patient reports that he was on morphine ER 30 mg twice a day but was discontinued recently given increased pain. Currently pain regimen to include fentanyl 50 g patch, morphine ER 30 mg every 12 hours and Percocet as needed. Palliative care recommends discontinuation of fentanyl patch in the setting of cachexia -impaired absorption secondary to low subcutaneous fat. Recommending increasing morphine ER to 30 mg q8hr ATC and continue with Percocet PRN for breakthrough pain. = Constipation: Secondary to opioid use and bedrest. Currently on Juliet-Colace 1 tab twice a day. Milk of magnesia, Senokot , lactulose and bisacodyl suppository available as needed. No further recommendations. = Poor appetite/anorexia: Patient started on Megace 400 mg twice a day and Marinol 5 mg twice a day. No further recommendations. = Debility: Secondary to burden of disease. Patient participating in physical therapy. Likely to continue to worsen as illness continues to progress. * Palliative care contact information has been provided to patient and family. * Palliative care will continue to follow-up for further clarifications of goals of care as patient's clinical course continues to evolve. . Time Spent Total Floor Time (mins): 88 (Total time to include review and summarization of available medical records to include prior acute hospitalizations, ED visits and oncology visits. Physical exam, goals of care conversation with patient and family, assistance with completion of healthcare surrogate decision maker.) >50% Counseling/Coord of Care: Yes Thank you for the opportunity to participate in the care of Mr. Zabala. Attestation To help prompt me to consider important information that might be impacting today's encounter and assessment, information from prior notes written by myself or my colleagues may have been "brought forward" into today's note. My signature on this note, however, is an attestation that I personally performed the exam, history, and/or decision-making noted today, and, unless otherwise indicated, the interactions with patient, family, and staff as well as the review of records all occurred today. I also attest that the listed assessment and stated plan reflect my best clinical judgment today based on the combination of historical information, prior notes, and today's exam/ interactions. When time spent is documented, it refers only to time spent today by the signer, or if indicated, combined time spent today by collaborating physician/nurse practitioner. Meghana Gale Mar 31, 2017 13:57
[2017-03-31] MEDS: oxyCODONE/ACETAMINOPHEN 5 MG/325 MG TAB PO PRN ×2 (16:13→23:02)
--- NOTE | 2017-03-31 16:27 | EKG ---
Date Performed: 03/30/2017 Time Performed: 15:54:41 PTAGE: 51 years EKG: Sinus rhythm POSSIBLE RIGHT VENTRICULAR CONDUCTION DELAY BORDERLINE ECG Since PREVIOUS TRACING , no significant change noted PREVIOUS TRACIN05/11/2016 11.21 DOCTOR: Rachel Wen Interpretating Date/Time 03/31/2017 16:25:39
[2017-03-31 17:40] LABS: HEMOGLOBIN A1a 1.4 %; HEMOGLOBIN A1b 0.8 %; HEMOGLOBIN Ao 84.2 %; HEMOGLOBIN F 1.6 %; HEMOGLOBIN P3 3.7 %
[2017-03-31] MEDS: MORPHINE SULFATE 4 MG/ML INJ IV PUSH PRN (19:56)
[2017-03-31] MEDS: ENOXAPARIN SODIUM 30 MG/0.3 ML SYRINGE SQ SCH (21:16)
[2017-04-01] VITALS (8 sets, daily range): BP systolic 100–112; BP diastolic 57–65; PULSE 75–100; RESP 17–19; TEMP 96.6–97.7; O2SAT 95–100
[2017-04-01] MEDS: MORPHINE SULFATE 4 MG/ML INJ IV PUSH PRN (03:19)
[2017-04-01] MEDS: oxyCODONE/ACETAMINOPHEN 10 MG/325 MG TAB PO PRN ×2 (05:18→19:32)
[2017-04-01] MEDS: SODIUM CHLOR 0.9% 1000 ML INJ 1,000 ML IV SCH ×2 (05:19→14:45)
[2017-04-01 05:46] LABS: AUTOMATED NEUTROPHIL # 5.1 TH/MM3 (1.8-7.7); BASOPHIL # 0.1 TH/MM3 (0-0.2); BASOPHIL % 1.4 % (0.0-2.0); EOSINOPHIL # 0.2 TH/MM3 (0-0.4); EOSINOPHIL % 2.3 % (0.0-4.0); HEMATOCRIT 28.1 % (39.0-51.0); HEMO FLAGS DIFF FINAL; LYMPH % 25.8 % (9.0-44.0); LYMPHOCYTE # 2.2 TH/MM3 (1.0-4.8); MEAN CELL VOLUME 88.8 FL (80.0-100.0); MEAN CORPUSCULAR HEMOGLOBIN 29.8 PG (27.0-34.0); MEAN CORPUSCULAR HGB CONC 33.6 % (32.0-36.0); MONO % 11.3 % (0.0-8.0); NEUT % 59.2 % (16.0-70.0); PLATELET COUNT 487 TH/MM3 (150-450); RED BLOOD COUNT 3.17 MIL/MM3 (4.50-5.90); RED CELL DISTRIBUTION WIDTH 16.1 % (11.6-17.2); WHITE BLOOD COUNT 8.7 TH/MM3 (4.0-11.0)
[2017-04-01 06:08] LABS: ALT (GPT) 11 U/L (12-78); ANION GAP 5 MEQ/L (5-15); AST (GOT) 16 U/L (15-37); BICARBONATE 28.4 MEQ/L (21.0-32.0); BLOOD UREA NITROGEN 6 MG/DL (7-18); CHLORIDE 104 MEQ/L (98-107); GLOMERULAR FILTRATION RATE 291 ML/MIN (>89); POTASSIUM 3.8 MEQ/L (3.5-5.1); SODIUM (NA) 137 MEQ/L (136-145)
[2017-04-01 06:09] LABS: ALKALINE PHOSPHATASE 75 U/L (45-117); TOTAL BILIRUBIN ADULT 0.2 MG/DL (0.2-1.0)
--- NOTE | 2017-04-01 06:21 | MB ---
cc: NASRIN BAXTER DATE OF CONSULTATION 03/31/2017 REASON FOR CONSULTATION Patient with Stage IV lung adenocarcinoma who was admitted to the hospital with failure to thrive. HISTORY OF PRESENT ILLNESS This is a 51-year-old male who has a diagnosis of Stage IV lung cancer with adenocarcinoma histology. He was originally diagnosed with lung cancer in May of 2016. He subsequently left the hospital AMA. He then had abdominal pain and CT scans of the abdomen and pelvis revealed a large kidney mass. This was suspicious for metastatic disease. He had multiple lytic lesions and bony destruction of the left iliac wing. He had biopsy of the kidney mass which confirmed poorly differentiated cancer with mucinous features. The patient was eventually started on chemotherapy in January of 2017. He has been noncompliant with his clinic visits. We have faced numerous issues in taking care of this patient including social issues as well insurance issues. He has progressively declined he is quite weak and cachectic. His pain is not well-controlled since he was not able to get his pain medications. The patient is not a candidate for systemic therapy at this time. He was admitted to the hospital and his pain medications have been adjusted. Today he states that he is feeling comfortable. His appetite remains poor.. REVIEW OF SYSTEMS A comprehensive 14-point review of systems was completed which is negative except as described in the HPI. PAST MEDICAL HISTORY 1. [id number] lung cancer. 2. Hypertension. 3. Anxiety. PAST SURGICAL HISTORY 1. Biopsy of the lung mass. 2. Biopsy of the renal mass. ALLERGIES No known drug allergies. HOME MEDICATIONS 1. Fentanyl patch 50 mcg q. 72 hours. 2. Alprazolam 0.25 mg t.i.d. p.r.n. INPATIENT MEDICATIONS 1. Marinol 5 mg p.o. b.i.d. 2. Megace 400 mg p.o. b.i.d. 3. Morphine sulfate 30 mg p.o. b.i.d. 4. Ambien 5 mg p.o. q.h.s. 5. Lovenox 30 mg subcu 24 hours. 6. Senna Docusate 1 tablet p.o. b.i.d. 7. Mucinex 600 mg p.o. b.i.d. 8. Pantoprazole 40 mg p.o. q.12 hours. 9. Thiamine 100 mg p.o. daily. 10. Nicotine patch q. 24 hours. 11. Folic acid 1 mg p.o. daily. 12. Multivitamin. 13. Flumazenil. 14. Lorazepam 1 mg p.r.n. 15. DuoNeb q.4 hours p.r.n. 16. Xanax 0.5 mg p.o. q.4 hours p.r.n. 17. Zofran 4 mg IV q.6 hours p.r.n. ALLERGIES He does not have any known drug allergies. FAMILY HISTORY Reviewed and is noncontributory to this admission. SOCIAL HISTORY He lives with his brother. He continues to smoke. He denies any alcohol abuse. No illicit drug use. PHYSICAL EXAMINATION VITAL SIGNS: Blood pressure is 94/58, pulse is in the 80s, temperature is 97.2, O2 sats are 98% on room air. GENERAL: A chronically ill-appearing patient who is cachectic, weak. HEENT: Pupils are equal, round, reactive to light. EOMI. No thrush. No oral lesions. NECK: Supple. No JVD, no bruits, no lymphadenopathy. CHEST: Clear to auscultation bilaterally. CARDIAC: S1-S2. Regular rate and rhythm. ABDOMEN: Soft, nontender, nondistended. Bowel sounds are present. EXTREMITIES: Without any edema, erythema or cyanosis. SKIN: Without any petechiae, lesion or bruises. NEURO: No focal deficits. PSYCHIATRIC: Mood and affect is appropriate. LABORATORY DATA WBC is 8.4, hemoglobin is 10.3 and platelet count 528. Serum chemistries show a sodium of 134, potassium 3.8, chloride 98, BUN is 5, creatinine is 0.33, calcium is 9.6, phosphorus 3.7, magnesium is 2, total bilirubin is 0.3, AST is 18, ALT is 15, alk phos is 16, albumin is 2.5, total protein is 7.3. TSH is 1.03. IMAGING STUDIES Chest x-ray shows bilateral pulmonary masses and hilar adenopathy consistent with metastatic disease. ASSESSMENT AND PLAN This is a 51-year-old male who was Stage IV lung adenocarcinoma who was admitted to the hospital with progressive weakness, failure to thrive, intractable pain. 1. Stage IV lung cancer: He has had progressive decline in his performance status. He has not had any treatment since January. He has been noncompliant with his clinic visits. At this time, due to severe decline in his functional status, he is not a candidate for systemic therapy. I have discussed this with the patient at length. I discussed the option of hospice and palliative care. However, he has declined. He states that he would like to pursue aggressive treatment and he has the expectation that he will get better not to receive treatment. The patient has been seen by Palliative Care. I will wait for their recommendations. I have asked the patient again to discuss the goals of care with the palliative care team. 2. Failure to thrive and poor oral intake: Since the patient wants to pursue aggressive therapy, would start a calorie count and we will consider TPN. 3. Deconditioning: He will need physical therapy. 4. Intractable pain: We will optimize his pain medications. I have discussed this case with Dr. Kemp. Thank you for allowing me to participate in the care of this patient. I will continue to follow this patient along. MD DEBORAH Sarabia/JOSE EDUARDO /11:43 PM /5:51 AM
[2017-04-01] MEDS: NICOTINE 14 MG/24 HR PATCH T-DERMAL SCH (08:20)
[2017-04-01] MEDS: PANTOPRAZOLE SOD 40 MG DELAYED RELEASE TAB PO SCH ×2 (08:20→20:21)
[2017-04-01] MEDS: guaiFENesin E.R. 600 MG TAB PO SCH ×2 (08:21→20:21)
[2017-04-01] MEDS: THIAMINE HCL 100 MG TAB PO SCH (08:21)
[2017-04-01] MEDS: DOCUSATE SODIUM 50 MG/SENNA 8.6 MG TAB PO SCH ×2 (08:21→20:21)
[2017-04-01] MEDS: FOLIC ACID 1 MG TAB PO SCH (08:21)
[2017-04-01] MEDS: MULTIVITAMINS/MINERALS THERAPEUTIC TAB PO SCH (08:21)
[2017-04-01] MEDS: SODIUM CHLORIDE 0.9% FLUSH 10 ML FLUSH IV FLUSH SCH ×2 (08:22→20:21)
[2017-04-01] MEDS: MORPHINE SULFATE 15 MG CONTROLLED RELEASE TAB PO SCH (08:22)
[2017-04-01] MEDS: ALPRAZolam 0.5 MG TAB PO PRN ×2 (08:27→22:46)
[2017-04-01] MEDS: MEGESTROL ACETATE SUSP 400 MG/10 ML CUP PO SCH ×2 (08:27→17:16)
[2017-04-01] MEDS: REMOVE OLD PATCH T-DERMAL SCH (09:00)
--- NOTE | 2017-04-01 10:41 | HHI.PR ---
Subjective Remarks Follow-up for uncontrolled pain and failure to thrive Patient stated that his appetite has been better and he is eating more. Patient also stated pain is controlled. He has no complaints. Objective Vitals Vital Signs Date Time Temp Pulse Resp B/P (MAP) Pulse Ox O2 Delivery O2 Flow Rate FiO2 04/01/17 09:10 95 04/01/17 08:00 96.6 75 18 100/57 (71) 97 04/01/17 03:39 97.1 88 18 109/65 (80) 100 04/01/17 00:00 97.7 93 18 112/59 (76) 99 03/31/17 23:00 93 03/31/17 20:18 97 21 03/31/17 20:00 87 03/31/17 18:35 97.6 89 12 98/53 (68) 97 03/31/17 16:00 97.2 87 14 94/58 (70) 98 03/31/17 12:21 98 21 03/31/17 12:18 106 03/31/17 12:00 96.5 91 18 106/59 (75) 96 I/O 03/31/17 03/31/17 03/31/17 04/01/17 04/01/17 04/01/17 07:00 15:00 23:00 07:00 15:00 23:00 Intake Total 210 ml 480 ml 1466 ml 1398 ml Balance 210 ml 480 ml 1466 ml 1398 ml Intake Oral 210 ml 480 ml 480 ml 480 ml IV Total 986 ml 918 ml # Voids 2 5 3 3 # Bowel Movements 0 1 0 0 Result Diagram: 04/01/17 0435 04/01/17 0435 Objective Remarks GENERAL: Very thin male in no acute distress SKIN: Warm and dry. Poor is in place and chest dry clean and intact. CARDIOVASCULAR: Regular rate and rhythm without murmurs, gallops, or rubs. RESPIRATORY: Breath sounds equal bilaterally. No accessory muscle use. GASTROINTESTINAL: Abdomen soft, non-tender, nondistended. MUSCULOSKELETAL: No cyanosis, or edema. BACK: Nontender without obvious deformity. No CVA tenderness. Medications and IVs Current Medications Nicotine (Habitrol 14 Mg Patch.24 Hr) 1 patch DAILY T-DERMAL Last administered on 04/01/17t 08:20; Start 03/30/17 at 20:00 Miscellaneous Information 1 DAILY T-DERMAL Last administered on 04/01/17 09:00 ; Start 03/31/17 at 09:00 Alprazolam (Xanax) 0.5 mg Q4H PRN PO ANXIETY Last administered on 04/01/17 08: 27; Start 03/30/17 at 18:15 Morphine Sulfate (Oramorph Sr) 30 mg BID PO Last administered on 04/01/17 08: 22; Start 03/30/17 at 21:00; Stop 04/01/17 at 09:52; Status DC Sodium Chloride (NS Flush) 2 ml UNSCH PRN IV FLUSH FLUSH AFTER USING IV ACCESS ; Start 03/30/17 at 18:15; Stop 03/30/17 at 20:14; Status DC Sodium Chloride (NS Flush) 2 ml BID IV FLUSH ; Start 03/30/17 at 21:00; Stop 03/30/17 at 21:00; Status DC Acetaminophen (Tylenol) 650 mg Q4H PRN PO TEMP > 100.4; Start 03/30/17 at 18: 15 Ondansetron HCl (Zofran Inj) 4 mg Q6H PRN IVP NAUSEA OR VOMITING; Start at 18:15 Prochlorperazine (Compazine Supp) 25 mg Q12H PRN RECTAL NAUSEA OR VOMITING; Start 03/30/17 at 18:15 Zolpidem Tartrate (Ambien) 5 mg HS PRN PO INSOMNIA Last administered on 22:39; Start 03/30/17 at 21:00 Enoxaparin Sodium (Lovenox Inj) 30 mg Q24H SQ Last administered on 03/31/17 21:16; Start 03/30/17 at 21:00 Acetaminophen (Tylenol) 650 mg Q6H PRN PO PAIN SCALE 1 TO 2; Start 03/30/17 at 18:15 Oxycodone/ Acetaminophen (Percocet 5-325 Mg) 1 tab Q6H PRN PO PAIN SCALE 3 TO 5 Last administered on 03/31/17 23:02; Start 03/30/17 at 18:15 Oxycodone/ Acetaminophen (Percocet 10-325 Mg) 1 tab Q6H PRN PO PAIN SCALE 6 TO 10 Last administered on 04/01/17 05:18; Start 03/30/17 at 18:15 Morphine Sulfate (Morphine Inj) 2 mg Q3H PRN IV PUSH Pain 3-5; if unable to take PO; Start 03/30/17 at 18:15 Morphine Sulfate (Morphine Inj) 4 mg Q3H PRN IV PUSH Pain 6-10;if unable to take PO; Start 03/30/17 at 18:15 Morphine Sulfate (Morphine Inj) 4 mg Q3H PRN IV PUSH BREAKTHROUGH PAIN Last administered on 04/01/17 03:19; Start 03/30/17 at 18:15 Naloxone HCl (Narcan Inj) 0.4 mg UNSCH PRN IV PUSH SEE LABEL COMMENTS; Start 03/30/17 at 18:15 Senna/Docusate Sodium (Juliet-Colace) 1 tab BID PO Last administered on 08:21; Start 03/30/17 at 21:00 Magnesium Hydroxide (Milk Of Magnesia Liq) 30 ml Q12H PRN PO Mild constipation ; Start 03/30/17 at 18:15 Sennosides (Senokot) 17.2 mg Q12H PRN PO Moderate constipation; Start at 18:15 Bisacodyl (Dulcolax Supp) 10 mg DAILY PRN RECTAL SEVERE CONSITIPATION; Start 03/30/17 at 18:15 Lactulose (Lactulose Liq) 30 ml DAILY PRN PO SEVERE CONSITIPATION; Start 03/30 at 18:15 Fentanyl (Duragesic 50 Mcg Patch.72 Hr) 1 patch Q3D T-DERMAL ; Start 04/02/17 at 09:00; Stop 04/02/17 at 09:00; Status DC Guaifenesin (Mucinex Er) 600 mg BID PO Last administered on 04/01/17 08:21; Start 03/30/17 at 21:00 Albuterol/ Ipratropium (Duoneb Neb) 1 ampule Q4HR NEB PRN NEB SHORTNESS OF BREATH; Start 03/30/17 at 18:30 Dronabinol (Marinol) 5 mg BID@11,16 PO Last administered on 03/31/17 16:12; Start 03/31/17 at 11:00 Megestrol Acetate (Megace) 400 mg Q12HR PO ; Start 03/30/17 at 21:00; Stop at 22:14; Status DC Pantoprazole Sodium (Protonix) 40 mg Q12HR PO Last administered on 04/01/17 08 :20; Start 03/30/17 at 21:00 Flumazenil (Romazicon Inj) 0.2 mg Q1M PRN IV PUSH SEE LABEL COMMENTS; Start at 18:45 Lorazepam (Ativan) 1 mg Q4H PRN PO CIWA 8 - 10; Start 03/30/17 at 18:45 Lorazepam (Ativan Inj) 1 mg Q4H PRN IV PUSH CIWA 8 - 10; Start 03/30/17 at 18: 45 Lorazepam (Ativan) 2 mg Q2H PRN PO CIWA 11-14; Start 03/30/17 at 18:45 Lorazepam (Ativan Inj) 2 mg Q2H PRN IV PUSH CIWA 11-14; Start 03/30/17 at 18: 45 Lorazepam (Ativan Inj) 2 mg Q1H PRN IV PUSH CIWA 15-20; Start 03/30/17 at 18: 45 Lorazepam (Ativan Inj) 2 mg Q15M PRN IV PUSH CIWA > 20; Start 03/30/17 at 18: 45 Haloperidol Lactate (Haldol Inj) 2 mg Q15M PRN IM SEE LABEL COMMENTS; Start at 18:45 Sodium Chloride (NS Flush) 2 ml UNSCH PRN IV FLUSH FLUSH AFTER USING IV ACCESS ; Start 03/30/17 at 18:45 Sodium Chloride (NS Flush) 2 ml BID IV FLUSH Last administered on 03/31/17 19 :56; Start 03/30/17 at 21:00 Folic Acid (Folate) 1 mg DAILY PO Last administered on 04/01/17 08:21; Start 03/30/17 at 20:00; Stop 04/04/17 at 19:59 Thiamine HCl (Vitamin B1) 100 mg DAILY PO Last administered on 04/01/17 08:21 ; Start 03/30/17 at 20:15 Multivitamins/ Minerals Therapeutic (Theragran M Tab) 1 tab DAILY PO Last administered on 04/01/17 08:21; Start 03/30/17 at 20:00; Stop 04/04/17 at 19: 59 Haloperidol Lactate (Haldol Inj) 2 mg Q15M PRN IM SEE LABEL COMMENTS; Start at 18:45; Stop 03/30/17 at 19:52; Status DC Pneumococcal Polyvalent Vaccine (Pneumovax-23 Inj) 25 mcg ONCE ONCE IM ; Start 03/31/17 at 10:00; Stop 03/31/17 at 10:01; Status Cancel Megestrol Acetate (Megace Liq) 400 mg BID@0900,1700 PO Last administered on 08:27; Start 03/31/17 at 09:00 Sodium Chloride 1,000 ml @ 100 mls/hr Q10H IV Last administered on 04/01/17 05:19; Start 03/31/17 at 08:45 Morphine Sulfate (Oramorph Sr) 30 mg TID PO ; Start 04/01/17 at 13:00 A/P Problem List: (1) Failure to thrive in adult ICD Code: R62.7 - Adult failure to thrive Status: Acute (2) Smoker ICD Code: F17.200 - Nicotine dependence, unspecified, uncomplicated Status: Acute (3) Metastatic primary lung cancer ICD Code: C34.90 - Malignant neoplasm of unspecified part of unspecified bronchus or lung Status: Acute (4) Non-small cell cancer of right lung ICD Code: C34.91 - Malignant neoplasm of unspecified part of right bronchus or lung Status: Acute (5) Metastasis ICD Code: C79.9 - Secondary malignant neoplasm of unspecified site Status: Acute (6) Lung mass ICD Code: R91.8 - Other nonspecific abnormal finding of lung field Status: Acute Assessment and Plan 51-year-old male with metastatic lung disease who presented with failure to thrive Failure to thrive -Dietitian consulted patient is on appetite stimulant and supplemental. Per oncologist patient will need a calorie count to determine if he needs TPN since he wants aggressive treatment in regards to his cancer. -Will put a consult in for dietitian to do a calorie count. -Encourage oral intake. Stage IV metastatic lung cancer -Poor prognosis. Patient wants aggressive treatment. -Oncologist following. CT as above. Intractable pain -Better controlled. -Per recommendations palliative care they do not recommend fentanyl patch since patient does not have any muscle mass or fat. Will discontinue fentanyl patch and increase morphine 30 three times a day. Continue Percocet for breakthrough pain. Discharge Planning Patient admitted for failure to thrive. Palliative care consulted and patient wants aggressive treatment. Per her oncologist will need calorie count to determine if patient needs TPN. Glenis Calvert MD Apr 01, 2017 10:41
--- NOTE | 2017-04-01 12:07 | HHI.HCPN ---
Reason for visit a. To assist with evaluation and management of symptoms including: Pain, decreased appetite, constipation. b. To assist medical decision maker(s) with: better understanding of current medical conditions; weighing benefits/burdens of medical treatment options; making medical treatment decisions. . Subjective/Interval History Mr. Fink is a 51-year-old male with a medical history significant for stage IV lung cancer with bone and renal metastasis. Patient with progressive clinical decline to include significant weight loss, cachexia, worsening debility and profound physical deconditioning. Of care consulted for further clarifications of goals of care given terminal condition. Patient seen in his room. He was resting in bed in no acute distress. Patient endorsing right flank/abdominal pain, intermittent chest pain and bilateral lower extremities pain. Pain currently at 5/10, exacerbated with physical exertion, alleviated with pain medication. Patient on Percocet as needed for breakthrough pain. Has received 2 doses of 5/325 yesterday and one dose of 10/ 325 today. Patient reports that appetite has improved, ate most of his breakfast earlier today. Reports that was able to ambulate with physical therapy. Denies nausea, vomiting or abdominal discomfort. Last bowel movement earlier today. Patient remains afebrile, stable hemodynamically. Tolerating room air with oxygen saturation in the high 90s. Patient was seen by oncology, Dr. Hinojosa on 03/31/17. Patient not a candidate for systemic therapy given poor performance status. Ongoing calorie count to determine nutritional needs, evaluate for TPN. Patient tells me that his goal is to maximize his nutritional status and hopefully gain some weight. Gently discussed with patient likely progression of illness to include progressive decline, unlikely to gain any significant weight. Patient wishing to maximize his medical management with the goal to prolong his survival and improved quality of life. Hospice philosophy and benefits reviewed discussed, patient receptive should his clinical condition continues to worsen or increased symptoms burden. Assisted patient with completion of living will. . Family/friend interactions No family at bedside. . Advance Directives Living Will: Copy in medical record Health Care Surrogate: Copy in medical record Durable Power of Public Relations Sales Marketing: Never completed Advance Directive Specifics Date completed: 03/31/17. . Health Care Surrogate(s): Patient designated his stepmother Radha Zabala as healthcare surrogate decision- maker, alternate stepbrother Michael Zabala. . Documented care wishes: Living will with standard verbiage. Patient wishing to allow to 2 weeks on life support, if no improvement, withdrawal/transition to comfort directed care. . Significant change in goals: Full code. Aggressive management. . Objective Vital Signs Date Time Temp Pulse Resp B/P (MAP) Pulse Ox O2 Delivery O2 Flow Rate FiO2 04/01/17 09:10 95 04/01/17 08:00 96.6 75 18 100/57 (71) 97 04/01/17 03:39 97.1 88 18 109/65 (80) 100 04/01/17 00:00 97.7 93 18 112/59 (76) 99 03/31/17 23:00 93 03/31/17 20:18 97 21 03/31/17 20:00 87 03/31/17 18:35 97.6 89 12 98/53 (68) 97 03/31/17 16:00 97.2 87 14 94/58 (70) 98 03/31/17 12:21 98 21 03/31/17 12:18 106 03/31/17 12:00 96.5 91 18 106/59 (75) 96 Intake & Output 04/01/17 04/01/17 07:00 19:00 Intake Total 2864 ml Balance 2864 ml Intake Oral 960 ml IV Total 1904 ml # Voids 6 # Bowel Movements 0 Physical Exam CONSTITUTIONAL/GENERAL: This is a cachectic male requesting in no apparent distress. Patient appears much older than stated age. TUBES/LINES/DRAINS: Right MediPort accessed. SKIN: No jaundice, rashes, or lesions. No wounds seen anteriorly. Skin temperature appropriate. Not diaphoretic. HEAD: Atraumatic. Normocephalic. Bilateral temporal wasting. EYES: Pupils equal and round and reactive. Extraocular motions intact. No scleral icterus. No injection or drainage. Fundi not examined. ENT: Hearing grossly normal. Nose without bleeding or purulent drainage. Moist oral mucosa. NECK: Trachea midline. Supple, nontender. CARDIOVASCULAR: Regular rate and rhythm without murmurs, gallops, or rubs. No JVD. Peripheral pulses symmetric. RESPIRATORY/CHEST: Symmetric, unlabored respirations. Clear to auscultation. Breath sounds equal bilaterally. No wheezes, rales, or rhonchi. GASTROINTESTINAL: Abdomen soft, tender, nondistended. No guarding. Bowel sounds present. GENITOURINARY: Without palpable bladder distension. MUSCULOSKELETAL: Extremities without clubbing, cyanosis, or edema. No mottling or clubbing. Muscle wasting to all 4 extremities. NEUROLOGICAL: Awake and alert. Motor and sensory grossly within normal limits. Follows commands. Cognitively sharp. Moves all extremities. PSYCHIATRIC: No obvious anxiety/depression. Calm, cooperative. . Diagnostic Tests Laboratory Laboratory Tests Test 03/30/17 15:15 03/31/17 05:58 04/01/17 04:35 White Blood Count 9.3 TH/MM3 (4.0-11.0) 8.4 TH/MM3 (4.0-11.0) 8.7 TH/MM3 (4.0-11.0) Red Blood Count 3.32 MIL/MM3 (4.50-5.90) 3.34 MIL/MM3 (4.50-5.90) 3.17 MIL/MM3 (4.50-5.90) Hemoglobin 10.7 GM/DL (13.0-17.0) 10.3 GM/DL (13.0-17.0) 9.4 GM/DL (13.0-17.0) Hematocrit 29.3 % (39.0-51.0) 29.5 % (39.0-51.0) 28.1 % (39.0-51.0) Mean Corpuscular Volume 88.3 FL (80.0-100.0) 88.2 FL (80.0-100.0) 88.8 FL (80.0-100.0) Mean Corpuscular Hemoglobin 32.3 PG (27.0-34.0) 30.7 PG (27.0-34.0) 29.8 PG (27.0-34.0) Mean Corpuscular Hemoglobin Concent 36.5 % (32.0-36.0) 34.8 % (32.0-36.0) 33.6 % (32.0-36.0) Red Cell Distribution Width 15.8 % (11.6-17.2) 15.9 % (11.6-17.2) 16.1 % (11.6-17.2) Platelet Count 525 TH/MM3 (150-450) 528 TH/MM3 (150-450) 487 TH/MM3 (150-450) Mean Platelet Volume 6.6 FL (7.0-11.0) 6.5 FL (7.0-11.0) 6.4 FL (7.0-11.0) Neutrophils (%) (Auto) 62.3 % (16.0-70.0) 61.9 % (16.0-70.0) 59.2 % (16.0-70.0) Lymphocytes (%) (Auto) 22.3 % (9.0-44.0) 22.6 % (9.0-44.0) 25.8 % (9.0-44.0) Monocytes (%) (Auto) 11.5 % (0.0-8.0) 11.0 % (0.0-8.0) 11.3 % (0.0-8.0) Eosinophils (%) (Auto) 2.6 % (0.0-4.0) 3.4 % (0.0-4.0) 2.3 % (0.0-4.0) Basophils (%) (Auto) 1.3 % (0.0-2.0) 1.1 % (0.0-2.0) 1.4 % (0.0-2.0) Neutrophils # (Auto) 5.8 TH/MM3 (1.8-7.7) 5.2 TH/MM3 (1.8-7.7) 5.1 TH/MM3 (1.8-7.7) Lymphocytes # (Auto) 2.1 TH/MM3 (1.0-4.8) 1.9 TH/MM3 (1.0-4.8) 2.2 TH/MM3 (1.0-4.8) Monocytes # (Auto) 1.1 TH/MM3 (0-0.9) 0.9 TH/MM3 (0-0.9) 1.0 TH/MM3 (0-0.9) Eosinophils # (Auto) 0.2 TH/MM3 (0-0.4) 0.3 TH/MM3 (0-0.4) 0.2 TH/MM3 (0-0.4) Basophils # (Auto) 0.1 TH/MM3 (0-0.2) 0.1 TH/MM3 (0-0.2) 0.1 TH/MM3 (0-0.2) CBC Comment AUTO DIFF DIFF FINAL DIFF FINAL Differential Comment AUTO DIFF CONFIRMED Platelet Estimate HIGH (NORMAL) Platelet Morphology Comment NORMAL (NORMAL) Prothrombin Time 11.1 SEC (9.8-11.6) Prothromb Time International Ratio 1.0 RATIO Activated Partial Thromboplast Time 34.0 SEC (24.3-30.1) Blood Urea Nitrogen 8 MG/DL (7-18) 5 MG/DL (7-18) 6 MG/DL (7-18) Creatinine 0.38 MG/DL (0.60-1.30) 0.33 MG/DL (0.60-1.30) 0.32 MG/DL (0.60-1.30) Random Glucose 98 MG/DL (74-106) 101 MG/DL (74-106) 105 MG/DL (74-106) Total Protein 8.0 GM/DL (6.4-8.2) 7.3 GM/DL (6.4-8.2) 6.8 GM/DL (6.4-8.2) Albumin 2.8 GM/DL (3.4-5.0) 2.5 GM/DL (3.4-5.0) 2.4 GM/DL (3.4-5.0) Calcium Level 9.9 MG/DL (8.5-10.1) 9.6 MG/DL (8.5-10.1) 8.9 MG/DL (8.5-10.1) Alkaline Phosphatase 87 U/L (45-117) 76 U/L (45-117) 75 U/L (45-117) Aspartate Amino Transf (AST/SGOT) 24 U/L (15-37) 18 U/L (15-37) 16 U/L (15-37) Alanine Aminotransferase (ALT/SGPT) 18 U/L (12-78) 15 U/L (12-78) 11 U/L (12-78) Total Bilirubin 0.2 MG/DL (0.2-1.0) 0.3 MG/DL (0.2-1.0) 0.2 MG/DL (0.2-1.0) Sodium Level 132 MEQ/L (136-145) 134 MEQ/L (136-145) 137 MEQ/L (136-145) Potassium Level 4.1 MEQ/L (3.5-5.1) 3.8 MEQ/L (3.5-5.1) 3.8 MEQ/L (3.5-5.1) Chloride Level 98 MEQ/L (98-107) 98 MEQ/L (98-107) 104 MEQ/L (98-107) Carbon Dioxide Level 29.0 MEQ/L (21.0-32.0) 30.6 MEQ/L (21.0-32.0) 28.4 MEQ/L (21.0-32.0) Anion Gap 5 MEQ/L (5-15) 5 MEQ/L (5-15) 5 MEQ/L (5-15) Estimat Glomerular Filtration Rate 239 ML/MIN (>89) 281 ML/MIN (>89) 291 ML/MIN (>89) Lactic Acid Level 1.3 mmol/L (0.4-2.0) Phosphorus Level 4.0 MG/DL (2.5-4.9) 3.7 MG/DL (2.5-4.9) 2.8 MG/DL (2.5-4.9) Magnesium Level 1.9 MG/DL (1.5-2.5) 2.0 MG/DL (1.5-2.5) 2.0 MG/DL (1.5-2.5) Hemoglobin A1c 5.6 % (4.3-6.0) Free Thyroxine 1.38 NG/DL (0.76-1.46) Thyroid Stimulating Hormone 3rd Gen 1.030 uIU/ML (0.358-3.740) Result Diagram: 04/01/175 04/01/175 Microbiology Microbiology Date/Time Source Procedure Growth Status 03/30/17 15:20 Blood Peripheral Aerobic Blood Culture - Preliminary NO GROWTH IN 2 DAYS Resulted 03/30/17 15:20 Blood Peripheral Anaerobic Blood Culture - Preliminary NO GROWTH IN 2 DAYS Resulted 03/30/17 15:15 Blood Peripheral Aerobic Blood Culture - Preliminary NO GROWTH IN 2 DAYS Resulted 03/30/17 15:15 Blood Peripheral Anaerobic Blood Culture - Preliminary NO GROWTH IN 2 DAYS Resulted Assessment and Plan Disease Oriented Problem List: (1) Metastatic primary lung cancer (2) Bone metastases (3) Renal metastasis (4) Cachexia (5) Failure to thrive in adult (6) Physical deconditioning Symptom Scale: (1) Pain 0-10 Scale: 5 Comment: Secondary to burden of disease. (2) Dyspnea 0-10 Scale: 0 Comment: Lung cancer. (3) Constipation 0-10 Scale: Unable to quantify (4) Debility 0-10 Scale: Unable to quantify Pertinent Non-Medical Issues Psychosocial: Patient originally from [place]. Moved to [place] in 1975. He is , has 8 children ages 35 years old to 16 years old. 7 boys and 1 girl, residing in [facility]. 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 Quit in June 2016 secondary to physical deconditioning and symptom burden. No service reported. Spiritual: No temple affiliation. Legal: Designation of healthcare surrogate completed. Ethical issues impacting care: No ethical legal issues identified. . Important Contacts Stepmother/DIMITRIOS Garcia //Sagrario , . Stepbrother/reese PLNUKETT //Michael Zabala , . . Prognosis Mr. Fink is a 51-year-old male with a medical history significant for stage IV lung cancer with bone and renal metastasis. Patient with progressive clinical decline to include significant weight loss, cachexia, worsening debility and profound physical deconditioning. Patient no longer a candidate for systemic therapy given poor performance status. Patient overall prognosis for a prolonged survival is poor. Patient appropriate for hospice should he elects comfort-directed care. . Code Status: Full Code Plan * CODE STATUS: Full code. * HEALTHCARE DECISION-MAKING: Patient participating in medical decision-making. He appears to have a good understanding of his terminal condition and limitations of treatment. Retains the ability to weight benefits versus burdens of treatment options. Has designated his stepmother Radha Zabala as primary healthcare surrogate decision maker, alternate HCS is his stepbrother Michael Zabala. * GOALS OF CARE: Patient wishing to pursue aggressive management to include full code, wishing to maximize symptom management. Patient verbalizes understanding that he is not a candidate for any additional systemic palliative chemotherapy given poor performance status, progression of illness. Hospice philosophy and benefits discussed at length. Patient receptive to hospice should/when his symptom burden increases or there is additional functional decline. Patient verbalized NOT being ready for hospice at this time. * SYMPTOMS: =Pain, secondary to burden of disease. Lung cancer with liver bony and kidney metastasis. Fentanyl patch discontinued in the setting of cachexia - impaired absorption. Patient on morphine ER 30 mg every 8 hours around-the- clock. Percocet 5/325 for moderate pain and 10/325 for severe pain. Has received 2 doses of 5/325 yesterday, one dose of 10/325 today. Patient reports that pain is better controlled. No further recommendations at this time. = Constipation: Secondary to opioid use and bedrest. Currently on Juliet-Colace 1 tab twice a day. Milk of magnesia, Senokot, lactulose and bisacodyl suppository available as needed. Last bowel movement this morning. = Poor appetite/anorexia: Patient started on Megace 400 mg twice a day and Marinol 5 mg twice a day. Patient reports that his appetite has improved, no further recommendations. Ongoing calorie count. =Debility: Secondary to burden of disease. Patient participating in physical therapy. Likely to continue to worsen as illness continues to progress. PT recommending discharge home with no PT. * Palliative care assisted patient with completion of living will. Patient wishing to allow 2 weeks on life support, if no improvement, may transition to comfort-directed care/withdrawal life support. * Palliative care contact information has been provided to patient and family. * Palliative care will continue to follow-up for further clarifications of goals of care as patient's clinical course continues to evolve. . Time Spent Total Floor Time (mins): 38 (Total time to include review medical records, physical exam, goals of care conversation, assistance with completion of living will.) >50% Counseling/Coord of Care: Yes Attestation To help prompt me to consider important information that might be impacting today's encounter and assessment, information from prior notes written by myself or my colleagues may have been "brought forward" into today's note. My signature on this note, however, is an attestation that I personally performed the exam, history, and/or decision-making noted today, and, unless otherwise indicated, the interactions with patient, family, and staff as well as the review of records all occurred today. I also attest that the listed assessment and stated plan reflect my best clinical judgment today based on the combination of historical information, prior notes, and today's exam/ interactions. When time spent is documented, it refers only to time spent today by the signer, or if indicated, combined time spent today by collaborating physician/nurse practitioner. Meghana Gale Apr 01, 2017 12:07
[2017-04-01] MEDS: DRONABINOL 5 MG CAP PO SCH ×2 (12:58→17:16)
[2017-04-01] MEDS: MORPHINE SULFATE 30 MG CONTROLLED RELEASE TAB PO SCH ×2 (12:59→17:17)
--- NOTE | 2017-04-01 15:08 | PD.ONC.PN ---
Subjective Subjective Remarks Afebrile overnight Pt resting in bed with large lunch tray at bedside Reports he has been trying to increase his po intake Objective Data Date Time Temp Pulse Resp B/P (MAP) Pulse Ox O2 Delivery O2 Flow Rate FiO2 04/01/17 12:00 96.9 93 19 103/59 (74) 97 04/01/17 09:10 95 04/01/17 08:00 96.6 75 18 100/57 (71) 97 04/01/17 03:39 97.1 88 18 109/65 (80) 100 04/01/17 00:00 97.7 93 18 112/59 (76) 99 03/31/17 23:00 93 03/31/17 20:18 97 21 03/31/17 20:00 87 03/31/17 18:35 97.6 89 12 98/53 (68) 97 03/31/17 16:00 97.2 87 14 94/58 (70) 98 04/01/17 04/01/17 04/01/17 07:00 15:00 23:00 Intake Total 1398 ml Balance 1398 ml Result Diagram: 04/01/17 0435 04/01/17 0435 Laboratory Results Laboratory Tests Test 04/01/17 04:35 White Blood Count 8.7 TH/MM3 Red Blood Count 3.17 MIL/MM3 Hemoglobin 9.4 GM/DL Hematocrit 28.1 % Mean Corpuscular Volume 88.8 FL Mean Corpuscular Hemoglobin 29.8 PG Mean Corpuscular Hemoglobin Concent 33.6 % Red Cell Distribution Width 16.1 % Platelet Count 487 TH/MM3 Mean Platelet Volume 6.4 FL Neutrophils (%) (Auto) 59.2 % Lymphocytes (%) (Auto) 25.8 % Monocytes (%) (Auto) 11.3 % Eosinophils (%) (Auto) 2.3 % Basophils (%) (Auto) 1.4 % Neutrophils # (Auto) 5.1 TH/MM3 Lymphocytes # (Auto) 2.2 TH/MM3 Monocytes # (Auto) 1.0 TH/MM3 Eosinophils # (Auto) 0.2 TH/MM3 Basophils # (Auto) 0.1 TH/MM3 CBC Comment DIFF FINAL Differential Comment Blood Urea Nitrogen 6 MG/DL Creatinine 0.32 MG/DL Random Glucose 105 MG/DL Total Protein 6.8 GM/DL Albumin 2.4 GM/DL Calcium Level 8.9 MG/DL Phosphorus Level 2.8 MG/DL Magnesium Level 2.0 MG/DL Alkaline Phosphatase 75 U/L Aspartate Amino Transf (AST/SGOT) 16 U/L Alanine Aminotransferase (ALT/SGPT) 11 U/L Total Bilirubin 0.2 MG/DL Sodium Level 137 MEQ/L Potassium Level 3.8 MEQ/L Chloride Level 104 MEQ/L Carbon Dioxide Level 28.4 MEQ/L Anion Gap 5 MEQ/L Estimat Glomerular Filtration Rate 291 ML/MIN Culture Results Microbiology Date/Time Source Procedure Growth Status 03/30/17 15:20 Blood Peripheral Aerobic Blood Culture - Preliminary NO GROWTH IN 2 DAYS Resulted 03/30/17 15:20 Blood Peripheral Anaerobic Blood Culture - Preliminary NO GROWTH IN 2 DAYS Resulted 03/30/17 15:15 Blood Peripheral Aerobic Blood Culture - Preliminary NO GROWTH IN 2 DAYS Resulted 03/30/17 15:15 Blood Peripheral Anaerobic Blood Culture - Preliminary NO GROWTH IN 2 DAYS Resulted Administered Medications Medications (Trade) Dose Ordered Sig/Martha Route PRN Reason Start Time Stop Time Status Last Admin Dose Admin Nicotine (Habitrol 14 Mg Patch.24 Hr) 1 patch DAILY T-DERMAL 03/30/17 20:00 04/01/17 08:20 Miscellaneous Information 1 DAILY T-DERMAL 03/31/17 09:00 04/01/17 09:00 Alprazolam (Xanax) 0.5 mg Q4H PRN PO ANXIETY 03/30/17 18:15 04/01/17 08:27 Zolpidem Tartrate (Ambien) 5 mg HS PRN PO INSOMNIA 03/30/17 21:00 03/30/17 22:39 Enoxaparin Sodium (Lovenox Inj) 30 mg Q24H SQ 03/30/17 21:00 03/31/17 21:16 Oxycodone/ Acetaminophen (Percocet 5-325 Mg) 1 tab Q6H PRN PO PAIN SCALE 3 TO 5 03/30/17 18:15 03/31/17 23:02 Oxycodone/ Acetaminophen (Percocet 10-325 Mg) 1 tab Q6H PRN PO PAIN SCALE 6 TO 10 03/30/17 18:15 04/01/17 05:18 Senna/Docusate Sodium (Juliet-Colace) 1 tab BID PO 03/30/17 21:00 04/01/17 08:21 Guaifenesin (Mucinex Er) 600 mg BID PO 03/30/17 21:00 04/01/17 08:21 Dronabinol (Marinol) 5 mg BID@11,16 PO 03/31/17 11:00 04/01/17 12:58 Pantoprazole Sodium (Protonix) 40 mg Q12HR PO 03/30/17 21:00 04/01/17 08:20 Sodium Chloride (NS Flush) 2 ml BID IV FLUSH 03/30/17 21:00 03/31/17 19:56 Folic Acid (Folate) 1 mg DAILY PO 03/30/17 20:00 04/04/17 19:59 04/01/17 08:21 Thiamine HCl (Vitamin B1) 100 mg DAILY PO 03/30/17 20:15 04/01/17 08:21 Multivitamins/ Minerals Therapeutic (Theragran M Tab) 1 tab DAILY PO 03/30/17 20:00 04/04/17 19:59 04/01/17 08:21 Megestrol Acetate (Megace Liq) 400 mg BID@0900,1700 PO 03/31/17 09:00 04/01/17 08:27 Sodium Chloride 1,000 ml @ 100 mls/hr Q10H IV 03/31/17 08:45 04/01/17 05:19 Morphine Sulfate (Oramorph Sr) 30 mg TID PO 04/01/17 13:00 04/01/17 12:59 Objective Remarks GENERAL: Chronically ill appearing middle aged male resting in bed in no acute distress. SKIN: Warm and dry. HEAD: Normocephalic. EYES: No injection or drainage. NECK: Supple, trachea midline. CARDIOVASCULAR: Regular rate and rhythm without murmurs. RESPIRATORY: Clear posteriorly. Breathing unlabored. GASTROINTESTINAL: Abdomen soft, non-tender, nondistended. EXTREMITIES: No cyanosis, or edema. MUSCULOSKELETAL: Adequate muscle tone. NEUROLOGICAL: No obvious focal deficit. Awake, alert, and oriented x3. Assessment/Plan Problem List: (1) Non-small cell cancer of right lung ICD Codes: C34.91 - Malignant neoplasm of unspecified part of right bronchus or lung Status: Acute Plan: --There are many social issues of barriers to care -- Currently not a candidate for systemic therapy -- Calorie count ongoing and the dietitian is assessing for possible TPN -- He has declined hospice care at this time -- Palliative care following Hx/Workup: The pt was diagnosed in May 2016 with history of stage IV lung cancer. Unfortunately he left the hospital AMA time. He returned with abdominal pain and was found to have metastatic disease with biopsy of the kidney showing poorly differentiated cancer with mucinous features. He eventually started chemotherapy in January 2017 but has been noncompliant with clinic visits. Assessment 51 y/o male with history of stage IV lung adenocarcinoma admitted with failure to thrive Plan 1. Continue calorie count 2. Pain medications recently adjusted per palliative care 3. Patient currently not a candidate for chemotherapy; will emphasize good nutrition and physical therapy Attending Statement The exam, history, and the medical decision-making described in the above note were completed with the assistance of the mid-level provider. I reviewed and agree with the findings presented. I attest that I had a [id number] encounter with the patient on the same day, and personally performed and documented my assessment and findings in the medical record Kellen Shearer Apr 01, 2017 15:08 Jr Hinojosa MD Apr 01, 2017 21:32
[2017-04-01] MEDS: ENOXAPARIN SODIUM 30 MG/0.3 ML SYRINGE SQ SCH (20:21)
[2017-04-01] MEDS: ZOLPIDEM TARTRATE 5 MG TAB PO PRN (22:46)
[2017-04-02] VITALS: BP 129/74; PULSE 85; PULSE 90; RESP 17; TEMP 98.2; O2SAT 94
[2017-04-02] MEDS: SODIUM CHLOR 0.9% 1000 ML INJ 1,000 ML IV SCH ×3 (00:24→20:26)
[2017-04-02 04:00] VITALS: BP 106/60; PULSE 89; PULSE 95; RESP 16; TEMP 97.4; O2SAT 97
[2017-04-02] MEDS: oxyCODONE/ACETAMINOPHEN 10 MG/325 MG TAB PO PRN ×3 (04:51→20:23)
[2017-04-02] MEDS: ALPRAZolam 0.5 MG TAB PO PRN (04:51)
[2017-04-02 08:00] VITALS: BP 104/60; PULSE 87; RESP 18; TEMP 96; O2SAT 96
[2017-04-02] MEDS ORDERED: fentaNYL 50 MCG/HR PATCH T-DERMAL SCH (09:00)
[2017-04-02] MEDS: SODIUM CHLORIDE 0.9% FLUSH 10 ML FLUSH IV FLUSH SCH ×2 (09:00→20:25)
[2017-04-02] MEDS: REMOVE OLD PATCH T-DERMAL SCH (09:00)
[2017-04-02] MEDS: THIAMINE HCL 100 MG TAB PO SCH (09:27)
[2017-04-02] MEDS: DOCUSATE SODIUM 50 MG/SENNA 8.6 MG TAB PO SCH ×2 (09:27→20:20)
[2017-04-02] MEDS: NICOTINE 14 MG/24 HR PATCH T-DERMAL SCH (09:27)
[2017-04-02] MEDS: FOLIC ACID 1 MG TAB PO SCH (09:27)
[2017-04-02] MEDS: MULTIVITAMINS/MINERALS THERAPEUTIC TAB PO SCH (09:27)
[2017-04-02] MEDS: PANTOPRAZOLE SOD 40 MG DELAYED RELEASE TAB PO SCH ×2 (09:28→20:20)
[2017-04-02] MEDS: guaiFENesin E.R. 600 MG TAB PO SCH ×2 (09:28→20:20)
[2017-04-02] MEDS: MEGESTROL ACETATE SUSP 400 MG/10 ML CUP PO SCH ×2 (09:28→16:42)
[2017-04-02] MEDS: MORPHINE SULFATE 30 MG CONTROLLED RELEASE TAB PO SCH ×3 (09:28→17:51)
--- NOTE | 2017-04-02 10:40 | HHI.PR ---
Subjective Remarks Follow-up for you to thrive and pain. Patient found sitting comfortably in bed eating his breakfast. He complained of pain from sitting/lying in the bed since he was admitted to hospital. When I explained to patient that he should be ambulating the hallways he stated that he thought he was here for his pain to be managed. I also discussed with patient that he was seen by multiple providers yesterday he stated that pain was controlled. He is increasing his oral intake. Patient also stated that he is eating a lot of candy and asked me if he needs a document all the candy he is eating. Otherwise he has no complaints. Objective Vitals Vital Signs Date Time Temp Pulse Resp B/P (MAP) Pulse Ox O2 Delivery O2 Flow Rate FiO2 04/02/17 10:28 18 04/02/17 08:00 96.0 87 18 104/60 (75) 96 04/02/17 04:00 97.4 95 16 106/60 (75) 97 04/02/17 04:00 89 04/02/17 00:00 85 04/02/17 00:00 98.2 90 17 129/74 (92) 94 04/01/17 20:00 88 04/01/17 19:00 97.4 100 17 104/60 (75) 98 04/01/17 16:00 96.7 86 18 108/60 (76) 98 04/01/17 12:00 96.9 93 19 103/59 (74) 97 I/O 04/01/17 04/01/17 04/01/17 04/02/17 04/02/17 04/02/17 07:00 15:00 23:00 07:00 15:00 23:00 Intake Total 1398 ml 2499 ml 165 ml 1565 ml Balance 1398 ml 2499 ml 165 ml 1565 ml Intake Oral 480 ml 1500 ml 760 ml IV Total 918 ml 999 ml 165 ml 805 ml # Voids 3 9 3 # Bowel Movements 0 2 0 Result Diagram: 04/01/1743404/01/17434 Objective Remarks GENERAL: Very thin male in no acute distress sitting very comfortably in bed. SKIN: Warm and dry. Poor is in place and chest dry clean and intact. CARDIOVASCULAR: Regular rate and rhythm without murmurs, gallops, or rubs. RESPIRATORY: Breath sounds equal bilaterally. No accessory muscle use. GASTROINTESTINAL: Abdomen soft, non-tender, nondistended. Medications and IVs Current Medications Nicotine (Habitrol 14 Mg Patch.24 Hr) 1 patch DAILY T-DERMAL Last administered on 04/02/17 09:27; Start 03/30/17 at 20:00 Miscellaneous Information 1 DAILY T-DERMAL Last administered on 04/02/17 09:00 ; Start 03/31/17 at 09:00 Alprazolam (Xanax) 0.5 mg Q4H PRN PO ANXIETY Last administered on 04/02/17 04: 51; Start 03/30/17 at 18:15 Morphine Sulfate (Oramorph Sr) 30 mg BID PO Last administered on 04/01/17 08: 22; Start 03/30/17 at 21:00; Stop 04/01/17 at 09:52; Status DC Sodium Chloride (NS Flush) 2 ml UNSCH PRN IV FLUSH FLUSH AFTER USING IV ACCESS ; Start 03/30/17 at 18:15; Stop 03/30/17 at 20:14; Status DC Sodium Chloride (NS Flush) 2 ml BID IV FLUSH ; Start 03/30/17 at 21:00; Stop 03/30/17 at 21:00; Status DC Acetaminophen (Tylenol) 650 mg Q4H PRN PO TEMP > 100.4; Start 03/30/17 at 18: 15 Ondansetron HCl (Zofran Inj) 4 mg Q6H PRN IVP NAUSEA OR VOMITING; Start at 18:15 Prochlorperazine (Compazine Supp) 25 mg Q12H PRN RECTAL NAUSEA OR VOMITING; Start 03/30/17 at 18:15 Zolpidem Tartrate (Ambien) 5 mg HS PRN PO INSOMNIA Last administered on 22:46; Start 03/30/17 at 21:00 Enoxaparin Sodium (Lovenox Inj) 30 mg Q24H SQ Last administered on 04/01/17 20 :21; Start 03/30/17 at 21:00 Acetaminophen (Tylenol) 650 mg Q6H PRN PO PAIN SCALE 1 TO 2; Start 03/30/17 at 18:15 Oxycodone/ Acetaminophen (Percocet 5-325 Mg) 1 tab Q6H PRN PO PAIN SCALE 3 TO 5 Last administered on 03/31/17 23:02; Start 03/30/17 at 18:15 Oxycodone/ Acetaminophen (Percocet 10-325 Mg) 1 tab Q6H PRN PO PAIN SCALE 6 TO 10 Last administered on 04/02/17 04:51; Start 03/30/17 at 18:15 Morphine Sulfate (Morphine Inj) 2 mg Q3H PRN IV PUSH Pain 3-5; if unable to take PO; Start 03/30/17 at 18:15; Stop 04/01/17 at 10:37; Status DC Morphine Sulfate (Morphine Inj) 4 mg Q3H PRN IV PUSH Pain 6-10;if unable to take PO; Start 03/30/17 at 18:15; Stop 04/01/17 at 10:37; Status DC Morphine Sulfate (Morphine Inj) 4 mg Q3H PRN IV PUSH BREAKTHROUGH PAIN Last administered on 04/01/17 03:19; Start 03/30/17 at 18:15; Stop 04/01/17 at 10: 37; Status DC Naloxone HCl (Narcan Inj) 0.4 mg UNSCH PRN IV PUSH SEE LABEL COMMENTS; Start 03/30/17 at 18:15 Senna/Docusate Sodium (Juliet-Colace) 1 tab BID PO Last administered on 09:27; Start 03/30/17 at 21:00 Magnesium Hydroxide (Milk Of Magnesia Liq) 30 ml Q12H PRN PO Mild constipation ; Start 03/30/17 at 18:15 Sennosides (Senokot) 17.2 mg Q12H PRN PO Moderate constipation; Start at 18:15 Bisacodyl (Dulcolax Supp) 10 mg DAILY PRN RECTAL SEVERE CONSITIPATION; Start 03/30/17 at 18:15 Lactulose (Lactulose Liq) 30 ml DAILY PRN PO SEVERE CONSITIPATION; Start 03/30 at 18:15 Fentanyl (Duragesic 50 Mcg Patch.72 Hr) 1 patch Q3D T-DERMAL ; Start 04/02/17 at 09:00; Stop 04/02/17 at 09:00; Status DC Guaifenesin (Mucinex Er) 600 mg BID PO Last administered on 04/02/17 09:28; Start 03/30/17 at 21:00 Albuterol/ Ipratropium (Duoneb Neb) 1 ampule Q4HR NEB PRN NEB SHORTNESS OF BREATH; Start 03/30/17 at 18:30 Dronabinol (Marinol) 5 mg BID@11,16 PO Last administered on 04/01/17 17:16; Start 03/31/17 at 11:00 Megestrol Acetate (Megace) 400 mg Q12HR PO ; Start 03/30/17 at 21:00; Stop at 22:14; Status DC Pantoprazole Sodium (Protonix) 40 mg Q12HR PO Last administered on 04/02/17 09 :28; Start 03/30/17 at 21:00 Flumazenil (Romazicon Inj) 0.2 mg Q1M PRN IV PUSH SEE LABEL COMMENTS; Start at 18:45 Lorazepam (Ativan) 1 mg Q4H PRN PO CIWA 8 - 10; Start 03/30/17 at 18:45 Lorazepam (Ativan Inj) 1 mg Q4H PRN IV PUSH CIWA 8 - 10; Start 03/30/17 at 18: 45 Lorazepam (Ativan) 2 mg Q2H PRN PO CIWA 11-14; Start 03/30/17 at 18:45 Lorazepam (Ativan Inj) 2 mg Q2H PRN IV PUSH CIWA 11-14; Start 03/30/17 at 18: 45 Lorazepam (Ativan Inj) 2 mg Q1H PRN IV PUSH CIWA 15-20; Start 03/30/17 at 18: 45 Lorazepam (Ativan Inj) 2 mg Q15M PRN IV PUSH CIWA > 20; Start 03/30/17 at 18: 45 Haloperidol Lactate (Haldol Inj) 2 mg Q15M PRN IM SEE LABEL COMMENTS; Start at 18:45 Sodium Chloride (NS Flush) 2 ml UNSCH PRN IV FLUSH FLUSH AFTER USING IV ACCESS ; Start 03/30/17 at 18:45 Sodium Chloride (NS Flush) 2 ml BID IV FLUSH Last administered on 03/31/17 19 :56; Start 03/30/17 at 21:00 Folic Acid (Folate) 1 mg DAILY PO Last administered on 04/02/17 09:27; Start 03/30/17 at 20:00; Stop 04/04/17 at 19:59 Thiamine HCl (Vitamin B1) 100 mg DAILY PO Last administered on 04/02/17 09:27 ; Start 03/30/17 at 20:15 Multivitamins/ Minerals Therapeutic (Theragran M Tab) 1 tab DAILY PO Last administered on 04/02/17 09:27; Start 03/30/17 at 20:00; Stop 04/04/17 at 19: 59 Haloperidol Lactate (Haldol Inj) 2 mg Q15M PRN IM SEE LABEL COMMENTS; Start at 18:45; Stop 03/30/17 at 19:52; Status DC Pneumococcal Polyvalent Vaccine (Pneumovax-23 Inj) 25 mcg ONCE ONCE IM ; Start 03/31/17 at 10:00; Stop 03/31/17 at 10:01; Status Cancel Megestrol Acetate (Megace Liq) 400 mg BID@0900,1700 PO Last administered on 09:28; Start 03/31/17 at 09:00 Sodium Chloride 1,000 ml @ 100 mls/hr Q10H IV Last administered on 04/02/17 09:34; Start 03/31/17 at 08:45 Morphine Sulfate (Oramorph Sr) 30 mg TID PO Last administered on 04/02/17 09: 28; Start 04/01/17 at 13:00 A/P Problem List: (1) Failure to thrive in adult ICD Code: R62.7 - Adult failure to thrive Status: Acute (2) Smoker ICD Code: F17.200 - Nicotine dependence, unspecified, uncomplicated Status: Acute (3) Metastatic primary lung cancer ICD Code: C34.90 - Malignant neoplasm of unspecified part of unspecified bronchus or lung Status: Acute (4) Non-small cell cancer of right lung ICD Code: C34.91 - Malignant neoplasm of unspecified part of right bronchus or lung Status: Acute (5) Metastasis ICD Code: C79.9 - Secondary malignant neoplasm of unspecified site Status: Acute (6) Lung mass ICD Code: R91.8 - Other nonspecific abnormal finding of lung field Status: Acute Assessment and Plan 51-year-old male with metastatic lung disease who presented with failure to thrive Failure to thrive -Patient is having a calorie count by dietitian to determine if he is a candidate for TPN. He is on Megace in [facility]. Stage IV metastatic lung cancer -Poor prognosis. Patient wants aggressive treatment. -Oncologist following. CT as above. Intractable pain -Patient said uncontrolled today but he is not ambulating and getting out of his bed. Patient also looks very comfortable. I discussed with patient to increase ambulation. He stated he understood. With his pain. -Changes in pain medication to be made by palliative care or his oncologist. Continue with morphine 30 mg 3 times a day and Percocet for breakthrough pain. Discharge Planning Patient admitted for failure to thrive. Patient currently getting a calorie count to determine if he is a candidate for TPN. Glenis Calvert MD Apr 02, 2017 10:40
[2017-04-02] MEDS: DRONABINOL 5 MG CAP PO SCH ×2 (11:11→16:42)
[2017-04-02 12:00] VITALS: BP 100/56; PULSE 91; RESP 18; TEMP 96.6; O2SAT 97
[2017-04-02 16:00] VITALS: BP 116/63; PULSE 101; RESP 18; TEMP 98.9; O2SAT 97
[2017-04-02 20:20] VITALS: BP 107/61; PULSE 99; RESP 17; TEMP 96.7; O2SAT 98
[2017-04-02] MEDS: ENOXAPARIN SODIUM 30 MG/0.3 ML SYRINGE SQ SCH (20:20)
[2017-04-02] MEDS: ZOLPIDEM TARTRATE 5 MG TAB PO PRN (23:57)
[2017-04-03] VITALS (8 sets, daily range): BP systolic 100–122; BP diastolic 57–73; PULSE 86–96; RESP 16–18; TEMP 95.7–98.5; O2SAT 96–99
[2017-04-03] MEDS: oxyCODONE/ACETAMINOPHEN 10 MG/325 MG TAB PO PRN ×4 (04:12→22:45)
[2017-04-03] MEDS: ALPRAZolam 0.5 MG TAB PO PRN ×2 (06:23→20:00)
[2017-04-03] MEDS: SODIUM CHLOR 0.9% 1000 ML INJ 1,000 ML IV SCH ×2 (06:45→15:04)
[2017-04-03] MEDS: REMOVE OLD PATCH T-DERMAL SCH (09:00)
[2017-04-03] MEDS: SODIUM CHLORIDE 0.9% FLUSH 10 ML FLUSH IV FLUSH SCH ×2 (09:00→19:57)
[2017-04-03] MEDS: THIAMINE HCL 100 MG TAB PO SCH (09:13)
[2017-04-03] MEDS: DOCUSATE SODIUM 50 MG/SENNA 8.6 MG TAB PO SCH ×2 (09:13→19:57)
[2017-04-03] MEDS: MULTIVITAMINS/MINERALS THERAPEUTIC TAB PO SCH (09:13)
[2017-04-03] MEDS: PANTOPRAZOLE SOD 40 MG DELAYED RELEASE TAB PO SCH ×2 (09:13→19:57)
[2017-04-03] MEDS: guaiFENesin E.R. 600 MG TAB PO SCH ×2 (09:13→19:57)
[2017-04-03] MEDS: MORPHINE SULFATE 30 MG CONTROLLED RELEASE TAB PO SCH ×3 (09:13→18:23)
[2017-04-03] MEDS: FOLIC ACID 1 MG TAB PO SCH (09:13)
[2017-04-03] MEDS: MEGESTROL ACETATE SUSP 400 MG/10 ML CUP PO SCH ×2 (09:13→16:46)
[2017-04-03] MEDS: NICOTINE 14 MG/24 HR PATCH T-DERMAL SCH (09:14)
--- NOTE | 2017-04-03 10:33 | HHI.PR ---
Subjective Remarks f/u for FTT and pain patient was found sound asleep before I woke him up. He stated he has abdominal pain that started right when he woke up. Remains afebrile. Denied any N/V. Pain is all over. When he is c/o he appears very comfortable. Patient stated he is eating better. Objective Vitals Vital Signs Date Time Temp Pulse Resp B/P (MAP) Pulse Ox O2 Delivery O2 Flow Rate FiO2 04/03/17 10:13 16 04/03/17 08:00 96.6 86 18 119/73 (88) 99 04/03/17 04:00 95.7 87 18 122/68 (86) 98 04/03/17 00:00 98.4 94 16 100/69 (79) 96 04/02/17 20:20 96.7 99 17 107/61 (76) 98 04/02/17 16:00 98.9 101 18 116/63 (80) 97 04/02/17 12:11 18 04/02/17 12:00 96.6 91 18 100/56 (71) 97 04/02/17 10:45 Nasal Cannula I/O 04/02/17 04/02/17 04/02/17 04/03/17 04/03/17 04/03/17 07:00 15:00 23:00 07:00 15:00 23:00 Intake Total 1565 ml 720 ml 1373 ml Balance 1565 ml 720 ml 1373 ml Intake Oral 760 ml 720 ml 480 ml IV Total 805 ml 893 ml # Voids 3 3 6 4 # Bowel Movements 0 1 2 Result Diagram: 04/01/17 0435 04/01/17 0435 Objective Remarks GENERAL: Very thin male in no acute distress sitting very comfortably in bed. SKIN: Warm and dry. Poor is in place and chest dry clean and intact. CARDIOVASCULAR: Regular rate and rhythm without murmurs, gallops, or rubs. RESPIRATORY: Breath sounds equal bilaterally. No accessory muscle use. GASTROINTESTINAL: Abdomen soft, non-tender, nondistended. no peritoneal signs. Medications and IVs Current Medications Nicotine (Habitrol 14 Mg Patch.24 Hr) 1 patch DAILY T-DERMAL Last administered on 04/03/17t 09:14; Start 03/30/17 at 20:00 Miscellaneous Information 1 DAILY T-DERMAL Last administered on 04/03/17 09:00 ; Start 03/31/17 at 09:00 Alprazolam (Xanax) 0.5 mg Q4H PRN PO ANXIETY Last administered on 04/03/17 06: 23; Start 03/30/17 at 18:15 Morphine Sulfate (Oramorph Sr) 30 mg BID PO Last administered on 04/01/17 08: 22; Start 03/30/17 at 21:00; Stop 04/01/17 at 09:52; Status DC Sodium Chloride (NS Flush) 2 ml UNSCH PRN IV FLUSH FLUSH AFTER USING IV ACCESS ; Start 03/30/17 at 18:15; Stop 03/30/17 at 20:14; Status DC Sodium Chloride (NS Flush) 2 ml BID IV FLUSH ; Start 03/30/17 at 21:00; Stop 03/30/17 at 21:00; Status DC Acetaminophen (Tylenol) 650 mg Q4H PRN PO TEMP > 100.4; Start 03/30/17 at 18: 15 Ondansetron HCl (Zofran Inj) 4 mg Q6H PRN IVP NAUSEA OR VOMITING; Start at 18:15 Prochlorperazine (Compazine Supp) 25 mg Q12H PRN RECTAL NAUSEA OR VOMITING; Start 03/30/17 at 18:15 Zolpidem Tartrate (Ambien) 5 mg HS PRN PO INSOMNIA Last administered on 23:57; Start 03/30/17 at 21:00 Enoxaparin Sodium (Lovenox Inj) 30 mg Q24H SQ Last administered on 04/02/17 20 :20; Start 03/30/17 at 21:00 Acetaminophen (Tylenol) 650 mg Q6H PRN PO PAIN SCALE 1 TO 2; Start 03/30/17 at 18:15 Oxycodone/ Acetaminophen (Percocet 5-325 Mg) 1 tab Q6H PRN PO PAIN SCALE 3 TO 5 Last administered on 03/31/17 23:02; Start 03/30/17 at 18:15 Oxycodone/ Acetaminophen (Percocet 10-325 Mg) 1 tab Q6H PRN PO PAIN SCALE 6 TO 10 Last administered on 04/03/17 04:12; Start 03/30/17 at 18:15 Morphine Sulfate (Morphine Inj) 2 mg Q3H PRN IV PUSH Pain 3-5; if unable to take PO; Start 03/30/17 at 18:15; Stop 04/01/17 at 10:37; Status DC Morphine Sulfate (Morphine Inj) 4 mg Q3H PRN IV PUSH Pain 6-10;if unable to take PO; Start 03/30/17 at 18:15; Stop 04/01/17 at 10:37; Status DC Morphine Sulfate (Morphine Inj) 4 mg Q3H PRN IV PUSH BREAKTHROUGH PAIN Last administered on 04/01/17 03:19; Start 03/30/17 at 18:15; Stop 04/01/17 at 10: 37; Status DC Naloxone HCl (Narcan Inj) 0.4 mg UNSCH PRN IV PUSH SEE LABEL COMMENTS; Start 03/30/17 at 18:15 Senna/Docusate Sodium (Juliet-Colace) 1 tab BID PO Last administered on 09:13; Start 03/30/17 at 21:00 Magnesium Hydroxide (Milk Of Magnesia Liq) 30 ml Q12H PRN PO Mild constipation ; Start 03/30/17 at 18:15 Sennosides (Senokot) 17.2 mg Q12H PRN PO Moderate constipation; Start at 18:15 Bisacodyl (Dulcolax Supp) 10 mg DAILY PRN RECTAL SEVERE CONSITIPATION; Start 03/30/17 at 18:15 Lactulose (Lactulose Liq) 30 ml DAILY PRN PO SEVERE CONSITIPATION; Start 03/30 at 18:15 Fentanyl (Duragesic 50 Mcg Patch.72 Hr) 1 patch Q3D T-DERMAL ; Start 04/02/17 at 09:00; Stop 04/02/17 at 09:00; Status DC Guaifenesin (Mucinex Er) 600 mg BID PO Last administered on 04/03/17 09:13; Start 03/30/17 at 21:00 Albuterol/ Ipratropium (Duoneb Neb) 1 ampule Q4HR NEB PRN NEB SHORTNESS OF BREATH; Start 03/30/17 at 18:30 Dronabinol (Marinol) 5 mg BID@11,16 PO Last administered on 04/02/17 16:42; Start 03/31/17 at 11:00 Megestrol Acetate (Megace) 400 mg Q12HR PO ; Start 03/30/17 at 21:00; Stop at 22:14; Status DC Pantoprazole Sodium (Protonix) 40 mg Q12HR PO Last administered on 04/03/17 09 :13; Start 03/30/17 at 21:00 Flumazenil (Romazicon Inj) 0.2 mg Q1M PRN IV PUSH SEE LABEL COMMENTS; Start at 18:45 Lorazepam (Ativan) 1 mg Q4H PRN PO CIWA 8 - 10; Start 03/30/17 at 18:45 Lorazepam (Ativan Inj) 1 mg Q4H PRN IV PUSH CIWA 8 - 10; Start 03/30/17 at 18: 45 Lorazepam (Ativan) 2 mg Q2H PRN PO CIWA 11-14; Start 03/30/17 at 18:45 Lorazepam (Ativan Inj) 2 mg Q2H PRN IV PUSH CIWA 11-14; Start 03/30/17 at 18: 45 Lorazepam (Ativan Inj) 2 mg Q1H PRN IV PUSH CIWA 15-20; Start 03/30/17 at 18: 45 Lorazepam (Ativan Inj) 2 mg Q15M PRN IV PUSH CIWA > 20; Start 03/30/17 at 18: 45 Haloperidol Lactate (Haldol Inj) 2 mg Q15M PRN IM SEE LABEL COMMENTS; Start at 18:45 Sodium Chloride (NS Flush) 2 ml UNSCH PRN IV FLUSH FLUSH AFTER USING IV ACCESS ; Start 03/30/17 at 18:45 Sodium Chloride (NS Flush) 2 ml BID IV FLUSH Last administered on 03/31/17 19 :56; Start 03/30/17 at 21:00 Folic Acid (Folate) 1 mg DAILY PO Last administered on 04/03/17 09:13; Start 03/30/17 at 20:00; Stop 04/04/17 at 19:59 Thiamine HCl (Vitamin B1) 100 mg DAILY PO Last administered on 04/03/17 09:13 ; Start 03/30/17 at 20:15 Multivitamins/ Minerals Therapeutic (Theragran M Tab) 1 tab DAILY PO Last administered on 04/03/17 09:13; Start 03/30/17 at 20:00; Stop 04/04/17 at 19: 59 Haloperidol Lactate (Haldol Inj) 2 mg Q15M PRN IM SEE LABEL COMMENTS; Start at 18:45; Stop 03/30/17 at 19:52; Status DC Pneumococcal Polyvalent Vaccine (Pneumovax-23 Inj) 25 mcg ONCE ONCE IM ; Start 03/31/17 at 10:00; Stop 03/31/17 at 10:01; Status Cancel Megestrol Acetate (Megace Liq) 400 mg BID@0900,1700 PO Last administered on 09:13; Start 03/31/17 at 09:00 Sodium Chloride 1,000 ml @ 100 mls/hr Q10H IV Last administered on 04/02/17 20:26; Start 03/31/17 at 08:45 Morphine Sulfate (Oramorph Sr) 30 mg TID PO Last administered on 04/03/17 09: 13; Start 04/01/17 at 13:00 A/P Problem List: (1) Failure to thrive in adult ICD Code: R62.7 - Adult failure to thrive Status: Acute (2) Smoker ICD Code: F17.200 - Nicotine dependence, unspecified, uncomplicated Status: Acute (3) Metastatic primary lung cancer ICD Code: C34.90 - Malignant neoplasm of unspecified part of unspecified bronchus or lung Status: Acute (4) Non-small cell cancer of right lung ICD Code: C34.91 - Malignant neoplasm of unspecified part of right bronchus or lung Status: Acute (5) Metastasis ICD Code: C79.9 - Secondary malignant neoplasm of unspecified site Status: Acute (6) Lung mass ICD Code: R91.8 - Other nonspecific abnormal finding of lung field Status: Acute Assessment and Plan 51-year-old male with metastatic lung disease who presented with failure to thrive Failure to thrive -Patient is having a calorie count by dietitian to determine if he is a candidate for TPN. He is on Megace in [facility]. Stage IV metastatic lung cancer -Poor prognosis. Patient wants aggressive treatment. -Oncologist following. CT as above. Intractable pain -Now patient c/o abdominal pain that started when I woke him up. unsure if there is a psych component since pain seems to be in a different location everyday. -will get KUB and blood work. -Changes in pain medication to be made by palliative care or his oncologist. Continue with morphine 30 mg 3 times a day and Percocet for breakthrough pain. Discharge Planning Patient admitted for failure to thrive. Patient currently getting a calorie count to determine if he is a candidate for TPN. Glenis Calvert MD Apr 03, 2017 10:33
[2017-04-03] MEDS: DRONABINOL 5 MG CAP PO SCH ×2 (10:50→16:46)
--- NOTE | 2017-04-03 14:27 | RADRPT ---
EXAM DATE/TIME: 04/03/2017 13:51 [facility] COMPARISON: No previous studies available for comparison. INDICATIONS : Abdominal pain. MEDICAL HISTORY : Carcinoma, lung. Metastatic disease. SURGICAL HISTORY : None. ENCOUNTER: Initial ACUITY: 1 day PAIN SCORE: 9/10 LOCATION: Bilateral lower quadrant FINDINGS: Stool is seen throughout the colon. No dilated loops of bowel are noted. No abnormal calcifications. Osseous structures are intact. CONCLUSION: 1. Nonobstructive bowel gas pattern. Troy Galvin MD on April 03, 2017 at 14:24 Board Certified Radiologist. This report was verified electronically.
[2017-04-03] MEDS: ENOXAPARIN SODIUM 30 MG/0.3 ML SYRINGE SQ SCH (20:01)
[2017-04-04] MEDS: ALPRAZolam 0.5 MG TAB PO PRN ×3 (02:17→12:12)
[2017-04-04] MEDS: SODIUM CHLOR 0.9% 1000 ML INJ 1,000 ML IV SCH ×2 (02:45→12:12)
[2017-04-04] MEDS: oxyCODONE/ACETAMINOPHEN 10 MG/325 MG TAB PO PRN (06:07)
[2017-04-04 07:04] LABS: HEMATOCRIT 29.1 % (39.0-51.0); MEAN CELL VOLUME 88.4 FL (80.0-100.0); MEAN CORPUSCULAR HEMOGLOBIN 29.8 PG (27.0-34.0); MEAN CORPUSCULAR HGB CONC 33.7 % (32.0-36.0); PLATELET COUNT 573 TH/MM3 (150-450); RED CELL DISTRIBUTION WIDTH 16.2 % (11.6-17.2); REVIEW FLAG FINAL; WHITE BLOOD COUNT 12.2 TH/MM3 (4.0-11.0)
[2017-04-04 07:23] LABS: BICARBONATE 25.9 MEQ/L (21.0-32.0)
[2017-04-04 07:25] LABS: INDIRECT BILIRUBIN 0.1 MG/DL (0.0-0.8); TOTAL BILIRUBIN ADULT 0.2 MG/DL (0.2-1.0)
[2017-04-04] MEDS: NICOTINE 14 MG/24 HR PATCH T-DERMAL SCH (07:40)
[2017-04-04] MEDS: guaiFENesin E.R. 600 MG TAB PO SCH (07:40)
[2017-04-04] MEDS: MULTIVITAMINS/MINERALS THERAPEUTIC TAB PO SCH (07:40)
[2017-04-04] MEDS: PANTOPRAZOLE SOD 40 MG DELAYED RELEASE TAB PO SCH (07:41)
[2017-04-04] MEDS: FOLIC ACID 1 MG TAB PO SCH (07:41)
[2017-04-04] MEDS: DOCUSATE SODIUM 50 MG/SENNA 8.6 MG TAB PO SCH (07:41)
[2017-04-04] MEDS: MORPHINE SULFATE 30 MG CONTROLLED RELEASE TAB PO SCH ×2 (07:41→12:06)
[2017-04-04] MEDS: THIAMINE HCL 100 MG TAB PO SCH (07:41)
[2017-04-04 08:00] VITALS: BP 104/61; PULSE 86; RESP 18; TEMP 96.7; O2SAT 97
--- NOTE | 2017-04-04 10:06 | HHI.PR ---
Subjective Remarks Follow for malnutrition and abdominal pain Patient denies any abdominal pain. He said it resolved quickly yesterday. He thinks that he ate too much. Denied nausea or vomiting. Patient remains afebrile. Patient stated that pain is controlled. Objective Vitals Vital Signs Date Time Temp Pulse Resp B/P (MAP) Pulse Ox O2 Delivery O2 Flow Rate FiO2 04/04/17 08:00 96.7 86 18 104/61 (75) 97 04/03/17 23:11 97.7 94 18 100/62 (75) 97 04/03/17 23:04 87 04/03/17 19:09 98.5 92 18 103/57 (72) 96 04/03/17 17:47 18 04/03/17 16:00 97.0 96 18 103/59 (74) 97 04/03/17 14:12 16 04/03/17 12:00 97.6 88 18 107/60 (76) 97 I/O 04/03/17 04/03/17 04/03/17 04/04/17 04/04/17 04/04/17 07:00 15:00 23:00 07:00 15:00 23:00 Intake Total 1373 ml 360 ml 1355 ml 480 ml Balance 1373 ml 360 ml 1355 ml 480 ml Intake Oral 480 ml 360 ml 528 ml 480 ml IV Total 893 ml 827 ml # Voids 4 7 4 4 # Bowel Movements 2 2 2 1 Result Diagram: 04/04/17 0645 04/04/17 0645 Objective Remarks GENERAL: Very thin male in no acute distress sitting very comfortably in bed. SKIN: Warm and dry. Poor is in place and chest dry clean and intact. CARDIOVASCULAR: Regular rate and rhythm without murmurs, gallops, or rubs. RESPIRATORY: Breath sounds equal bilaterally. No accessory muscle use. GASTROINTESTINAL: Abdomen soft, non-tender, nondistended. no peritoneal signs. Medications and IVs Current Medications Nicotine (Habitrol 14 Mg Patch.24 Hr) 1 patch DAILY T-DERMAL Last administered on 04/04/17 07:40; Start 03/30/17 at 20:00 Miscellaneous Information 1 DAILY T-DERMAL Last administered on 04/03/17 09:00 ; Start 03/31/17 at 09:00 Alprazolam (Xanax) 0.5 mg Q4H PRN PO ANXIETY Last administered on 04/04/17 06: 07; Start 03/30/17 at 18:15 Morphine Sulfate (Oramorph Sr) 30 mg BID PO Last administered on 04/01/17 08: 22; Start 03/30/17 at 21:00; Stop 04/01/17 at 09:52; Status DC Sodium Chloride (NS Flush) 2 ml UNSCH PRN IV FLUSH FLUSH AFTER USING IV ACCESS ; Start 03/30/17 at 18:15; Stop 03/30/17 at 20:14; Status DC Sodium Chloride (NS Flush) 2 ml BID IV FLUSH ; Start 03/30/17 at 21:00; Stop 03/30/17 at 21:00; Status DC Acetaminophen (Tylenol) 650 mg Q4H PRN PO TEMP > 100.4; Start 03/30/17 at 18: 15 Ondansetron HCl (Zofran Inj) 4 mg Q6H PRN IVP NAUSEA OR VOMITING; Start at 18:15 Prochlorperazine (Compazine Supp) 25 mg Q12H PRN RECTAL NAUSEA OR VOMITING; Start 03/30/17 at 18:15 Zolpidem Tartrate (Ambien) 5 mg HS PRN PO INSOMNIA Last administered on 23:57; Start 03/30/17 at 21:00 Enoxaparin Sodium (Lovenox Inj) 30 mg Q24H SQ Last administered on 04/02/17 20 :20; Start 03/30/17 at 21:00 Acetaminophen (Tylenol) 650 mg Q6H PRN PO PAIN SCALE 1 TO 2; Start 03/30/17 at 18:15 Oxycodone/ Acetaminophen (Percocet 5-325 Mg) 1 tab Q6H PRN PO PAIN SCALE 3 TO 5 Last administered on 03/31/17 23:02; Start 03/30/17 at 18:15 Oxycodone/ Acetaminophen (Percocet 10-325 Mg) 1 tab Q6H PRN PO PAIN SCALE 6 TO 10 Last administered on 04/04/17 06:07; Start 03/30/17 at 18:15 Morphine Sulfate (Morphine Inj) 2 mg Q3H PRN IV PUSH Pain 3-5; if unable to take PO; Start 03/30/17 at 18:15; Stop 04/01/17 at 10:37; Status DC Morphine Sulfate (Morphine Inj) 4 mg Q3H PRN IV PUSH Pain 6-10;if unable to take PO; Start 03/30/17 at 18:15; Stop 04/01/17 at 10:37; Status DC Morphine Sulfate (Morphine Inj) 4 mg Q3H PRN IV PUSH BREAKTHROUGH PAIN Last administered on 04/01/17 03:19; Start 03/30/17 at 18:15; Stop 04/01/17 at 10: 37; Status DC Naloxone HCl (Narcan Inj) 0.4 mg UNSCH PRN IV PUSH SEE LABEL COMMENTS; Start 03/30/17 at 18:15 Senna/Docusate Sodium (Juliet-Colace) 1 tab BID PO Last administered on 07:41; Start 03/30/17 at 21:00 Magnesium Hydroxide (Milk Of Magnesia Liq) 30 ml Q12H PRN PO Mild constipation ; Start 03/30/17 at 18:15 Sennosides (Senokot) 17.2 mg Q12H PRN PO Moderate constipation; Start at 18:15 Bisacodyl (Dulcolax Supp) 10 mg DAILY PRN RECTAL SEVERE CONSITIPATION; Start 03/30/17 at 18:15 Lactulose (Lactulose Liq) 30 ml DAILY PRN PO SEVERE CONSITIPATION; Start 03/30 at 18:15 Fentanyl (Duragesic 50 Mcg Patch.72 Hr) 1 patch Q3D T-DERMAL ; Start 04/02/17 at 09:00; Stop 04/02/17 at 09:00; Status DC Guaifenesin (Mucinex Er) 600 mg BID PO Last administered on 04/04/17 07:40; Start 03/30/17 at 21:00 Albuterol/ Ipratropium (Duoneb Neb) 1 ampule Q4HR NEB PRN NEB SHORTNESS OF BREATH; Start 03/30/17 at 18:30 Dronabinol (Marinol) 5 mg BID@11,16 PO Last administered on 04/03/17 16:46; Start 03/31/17 at 11:00 Megestrol Acetate (Megace) 400 mg Q12HR PO ; Start 03/30/17 at 21:00; Stop at 22:14; Status DC Pantoprazole Sodium (Protonix) 40 mg Q12HR PO Last administered on 04/04/17 07 :41; Start 03/30/17 at 21:00 Flumazenil (Romazicon Inj) 0.2 mg Q1M PRN IV PUSH SEE LABEL COMMENTS; Start at 18:45 Lorazepam (Ativan) 1 mg Q4H PRN PO CIWA 8 - 10; Start 03/30/17 at 18:45 Lorazepam (Ativan Inj) 1 mg Q4H PRN IV PUSH CIWA 8 - 10; Start 03/30/17 at 18: 45 Lorazepam (Ativan) 2 mg Q2H PRN PO CIWA 11-14; Start 03/30/17 at 18:45 Lorazepam (Ativan Inj) 2 mg Q2H PRN IV PUSH CIWA 11-14; Start 03/30/17 at 18: 45 Lorazepam (Ativan Inj) 2 mg Q1H PRN IV PUSH CIWA 15-20; Start 03/30/17 at 18: 45 Lorazepam (Ativan Inj) 2 mg Q15M PRN IV PUSH CIWA > 20; Start 03/30/17 at 18: 45 Haloperidol Lactate (Haldol Inj) 2 mg Q15M PRN IM SEE LABEL COMMENTS; Start at 18:45 Sodium Chloride (NS Flush) 2 ml UNSCH PRN IV FLUSH FLUSH AFTER USING IV ACCESS ; Start 03/30/17 at 18:45 Sodium Chloride (NS Flush) 2 ml BID IV FLUSH Last administered on 03/31/17 19 :56; Start 03/30/17 at 21:00 Folic Acid (Folate) 1 mg DAILY PO Last administered on 04/04/17 07:41; Start 03/30/17 at 20:00; Stop 04/04/17 at 19:59 Thiamine HCl (Vitamin B1) 100 mg DAILY PO Last administered on 04/04/17 07:41 ; Start 03/30/17 at 20:15 Multivitamins/ Minerals Therapeutic (Theragran M Tab) 1 tab DAILY PO Last administered on 04/04/17 07:40; Start 03/30/17 at 20:00; Stop 04/04/17 at 19: 59 Haloperidol Lactate (Haldol Inj) 2 mg Q15M PRN IM SEE LABEL COMMENTS; Start at 18:45; Stop 03/30/17 at 19:52; Status DC Pneumococcal Polyvalent Vaccine (Pneumovax-23 Inj) 25 mcg ONCE ONCE IM ; Start 03/31/17 at 10:00; Stop 03/31/17 at 10:01; Status Cancel Megestrol Acetate (Megace Liq) 400 mg BID@0900,1700 PO Last administered on 16:46; Start 03/31/17 at 09:00 Sodium Chloride 1,000 ml @ 100 mls/hr Q10H IV Last administered on 04/03/17 15:04; Start 03/31/17 at 08:45 Morphine Sulfate (Oramorph Sr) 30 mg TID PO Last administered on 04/04/17 07: 41; Start 04/01/17 at 13:00 A/P Problem List: (1) Failure to thrive in adult ICD Code: R62.7 - Adult failure to thrive Status: Acute (2) Smoker ICD Code: F17.200 - Nicotine dependence, unspecified, uncomplicated Status: Acute (3) Metastatic primary lung cancer ICD Code: C34.90 - Malignant neoplasm of unspecified part of unspecified bronchus or lung Status: Acute (4) Non-small cell cancer of right lung ICD Code: C34.91 - Malignant neoplasm of unspecified part of right bronchus or lung Status: Acute (5) Metastasis ICD Code: C79.9 - Secondary malignant neoplasm of unspecified site Status: Acute (6) Lung mass ICD Code: R91.8 - Other nonspecific abnormal finding of lung field Status: Acute Assessment and Plan 51-year-old male with metastatic lung disease who presented with failure to thrive Failure to thrive -Patient is having a calorie count by dietitian to determine if he is a candidate for TPN. He is on Megace in [facility]. -Patient will have his calorie count done today in the a.m. Stage IV metastatic lung cancer -Poor prognosis. Patient wants aggressive treatment. -Oncologist following. CT as above. Intractable pain -Abdominal pain resolved. Most likely due to overeating. KUB was negative. -At the moment pain is controlled. Discharge Planning Patient admitted for failure to thrive. Calorie count will be completed this morning. If patient does not require TPN he can be discharged to home. Glenis Calvert MD Apr 04, 2017 10:06
[2017-04-04 12:00] VITALS: BP 134/65; PULSE 92; RESP 18; TEMP 96.3; O2SAT 98
[2017-04-04] MEDS: DRONABINOL 5 MG CAP PO SCH (12:06)
--- NOTE | 2017-04-04 12:57 | PD.ONC.PN ---
Subjective Subjective Remarks Afebrile overnight. Patient states he feels much better today. Hoping to go home today. Eating very well. Objective Data Date Time Temp Pulse Resp B/P (MAP) Pulse Ox O2 Delivery O2 Flow Rate FiO2 04/04/17 08:00 96.7 86 18 104/61 (75) 97 04/03/17 23:11 97.7 94 18 100/62 (75) 97 04/03/17 23:04 87 04/03/17 19:09 98.5 92 18 103/57 (72) 96 04/03/17 17:47 18 04/03/17 16:00 97.0 96 18 103/59 (74) 97 04/03/17 14:12 16 04/04/17 04/04/17 04/04/17 07:00 15:00 23:00 Intake Total 480 ml Balance 480 ml Result Diagram: 04/04/17 0645 04/04/17 0645 Laboratory Results Laboratory Tests Test 04/04/17 06:45 White Blood Count 12.2 TH/MM3 Red Blood Count 3.30 MIL/MM3 Hemoglobin 9.8 GM/DL Hematocrit 29.1 % Mean Corpuscular Volume 88.4 FL Mean Corpuscular Hemoglobin 29.8 PG Mean Corpuscular Hemoglobin Concent 33.7 % Red Cell Distribution Width 16.2 % Platelet Count 573 TH/MM3 Mean Platelet Volume 6.0 FL Blood Urea Nitrogen 6 MG/DL Creatinine 0.35 MG/DL Random Glucose 103 MG/DL Total Protein 7.0 GM/DL Albumin 2.5 GM/DL Calcium Level 9.2 MG/DL Alkaline Phosphatase 81 U/L Aspartate Amino Transf (AST/SGOT) 14 U/L Alanine Aminotransferase (ALT/SGPT) 14 U/L Total Bilirubin 0.2 MG/DL Direct Bilirubin 0.1 MG/DL Sodium Level 137 MEQ/L Potassium Level 4.0 MEQ/L Chloride Level 104 MEQ/L Carbon Dioxide Level 25.9 MEQ/L Anion Gap 7 MEQ/L Estimat Glomerular Filtration Rate 263 ML/MIN Indirect Bilirubin 0.1 MG/DL Administered Medications Medications (Trade) Dose Ordered Sig/Martha Route PRN Reason Start Time Stop Time Status Last Admin Dose Admin Nicotine (Habitrol 14 Mg Patch.24 Hr) 1 patch DAILY T-DERMAL 03/30/17 20:00 04/04/17 07:40 Miscellaneous Information 1 DAILY T-DERMAL 03/31/17 09:00 04/03/17 09:00 Alprazolam (Xanax) 0.5 mg Q4H PRN PO ANXIETY 03/30/17 18:15 04/04/17 12:12 Zolpidem Tartrate (Ambien) 5 mg HS PRN PO INSOMNIA 03/30/17 21:00 04/02/17 23:57 Enoxaparin Sodium (Lovenox Inj) 30 mg Q24H SQ 03/30/17 21:00 04/02/17 20:20 Oxycodone/ Acetaminophen (Percocet 5-325 Mg) 1 tab Q6H PRN PO PAIN SCALE 3 TO 5 03/30/17 18:15 03/31/17 23:02 Oxycodone/ Acetaminophen (Percocet 10-325 Mg) 1 tab Q6H PRN PO PAIN SCALE 6 TO 10 03/30/17 18:15 04/04/17 06:07 Senna/Docusate Sodium (Juliet-Colace) 1 tab BID PO 03/30/17 21:00 04/04/17 07:41 Guaifenesin (Mucinex Er) 600 mg BID PO 03/30/17 21:00 04/04/17 07:40 Dronabinol (Marinol) 5 mg BID@11,16 PO 03/31/17 11:00 04/04/17 12:06 Pantoprazole Sodium (Protonix) 40 mg Q12HR PO 03/30/17 21:00 04/04/17 07:41 Sodium Chloride (NS Flush) 2 ml BID IV FLUSH 03/30/17 21:00 03/31/17 19:56 Folic Acid (Folate) 1 mg DAILY PO 03/30/17 20:00 04/04/17 19:59 04/04/17 07:41 Thiamine HCl (Vitamin B1) 100 mg DAILY PO 03/30/17 20:15 04/04/17 07:41 Multivitamins/ Minerals Therapeutic (Theragran M Tab) 1 tab DAILY PO 03/30/17 20:00 04/04/17 19:59 04/04/17 07:40 Megestrol Acetate (Megace Liq) 400 mg BID@0900,1700 PO 03/31/17 09:00 04/03/17 16:46 Sodium Chloride 1,000 ml @ 100 mls/hr Q10H IV 03/31/17 08:45 04/04/17 12:12 Morphine Sulfate (Oramorph Sr) 30 mg TID PO 04/01/17 13:00 04/04/17 12:06 Objective Remarks GENERAL: Middle aged male sitting up in bed in [facility]. SKIN: Warm and dry. HEAD: Normocephalic. EYES: No injection or drainage. NECK: Supple, trachea midline. CARDIOVASCULAR: Regular rate and rhythm RESPIRATORY: diminished at bases, anterior ochoa clear. GASTROINTESTINAL: Abdomen soft, non-tender, nondistended. EXTREMITIES: No cyanosis, or edema. MUSCULOSKELETAL: Adequate muscle tone. NEUROLOGICAL: awake and alert, normal speech. moving all extremities. Assessment/Plan Problem List: (1) Non-small cell cancer of right lung ICD Codes: C34.91 - Malignant neoplasm of unspecified part of right bronchus or lung Status: Acute Plan: --There are many social issues of barriers to care -- Currently not a candidate for systemic therapy -- calorie count showed 24hours intake>3K calories, therefore TPN not recommended. -- He has declined hospice care at this time -- Palliative care following Hx/Workup: The pt was diagnosed in May 2016 with history of stage IV lung cancer. Unfortunately he left the hospital AMA time. He returned with abdominal pain and was found to have metastatic disease with biopsy of the kidney showing poorly differentiated cancer with mucinous features. He eventually started chemotherapy in January 2017 but has been noncompliant with clinic visits. Assessment 51 y/o male with history of stage IV lung adenocarcinoma admitted with failure to thrive Plan 1. continue supportive care 2. once discharged follow up in clinic. Attending Statement The exam, history, and the medical decision-making described in the above note were completed with the assistance of the mid-level provider. I reviewed and agree with the findings presented. I attest that I had a [id number] encounter with the patient on the same day, and personally performed and documented my assessment and findings in the medical record Juana Erazo Apr 04, 2017 12:57 Jr Hinojosa MD Apr 04, 2017 22:14
[2017-04-04] MEDS ORDERED: MORP1TAB25 PO (14:02)
[2017-04-04] MEDS ORDERED: OXYC1TAB63 PO (14:02)
[2017-04-04] MEDS ORDERED: Megestrol Liq PO (14:02)
[2017-04-04] MEDS ORDERED: DRON5CAP PO (14:02)
[2017-04-04] MEDS ORDERED: PERI PO (14:02)
--- NOTE | 2017-04-04 14:08 | HHI.DS ---
Discharge Summary Admission Date Mar 30, 2017 at 18:16 Admitting Diagnosis generalized weakness, metastatic cancer (1) Failure to thrive in adult ICD Code: R62.7 - Adult failure to thrive Diagnosis: Secondary Status: Acute (2) Smoker ICD Code: F17.200 - Nicotine dependence, unspecified, uncomplicated Diagnosis: Secondary Status: Acute (3) Metastatic primary lung cancer ICD Code: C34.90 - Malignant neoplasm of unspecified part of unspecified bronchus or lung Diagnosis: Principal Status: Acute (4) Non-small cell cancer of right lung ICD Code: C34.91 - Malignant neoplasm of unspecified part of right bronchus or lung Diagnosis: Principal Status: Acute (5) Metastasis ICD Code: C79.9 - Secondary malignant neoplasm of unspecified site Diagnosis: Principal Status: Acute (6) Lung mass ICD Code: R91.8 - Other nonspecific abnormal finding of lung field Diagnosis: Principal Status: Acute Brief History - From Admission This is a 51-year-old male who was sent here by his oncologist Dr. Hinojosa for admission. The patient has a history of stage IV non-small cell lung cancer. He presented yesterday to his oncologist for follow-up. He received one cycle of chemotherapy 2 weeks ago and per Dr. Corona progress note he was referred here to be admitted to the hospital for further evaluation of generalized weakness, weight loss. He feels that he is cachectic and malnourished and will likely need TPN. In regards to review of systems, the patient is complaining of lower abdominal pain which is been ongoing for 10 months. He also has intractable generalized pain, currently receiving morphine as well as fentanyl patches but the pain persists. He has no primary care physician. He ambulates at home with a cane and a walker. He lives with his mother and stepbrother. He has no other complaints at this time. We will adjust his pain medications. We will consult palliative care We'll consult CBC/BMP: 04/04/17 0645 04/04/17 0645 Significant Findings Laboratory Tests Test 04/04/17 06:45 White Blood Count 12.2 TH/MM3 (4.0-11.0) Red Blood Count 3.30 MIL/MM3 (4.50-5.90) Hemoglobin 9.8 GM/DL (13.0-17.0) Hematocrit 29.1 % (39.0-51.0) Platelet Count 573 TH/MM3 (150-450) Mean Platelet Volume 6.0 FL (7.0-11.0) Blood Urea Nitrogen 6 MG/DL (7-18) Creatinine 0.35 MG/DL (0.60-1.30) Albumin 2.5 GM/DL (3.4-5.0) Aspartate Amino Transf (AST/SGOT) 14 U/L (15-37) PE at Discharge GENERAL: Very thin male in no acute distress sitting very comfortably in bed. SKIN: Warm and dry. Poor is in place and chest dry clean and intact. CARDIOVASCULAR: Regular rate and rhythm without murmurs, gallops, or rubs. RESPIRATORY: Breath sounds equal bilaterally. No accessory muscle use. GASTROINTESTINAL: Abdomen soft, non-tender, nondistended. no peritoneal signs. Pt Condition on Discharge: Stable Discharge Disposition: Discharge Home Discharge Instructions DIET: Follow Instructions for: As Tolerated, No Restrictions Activities you can perform: Regular-No Restrictions Glenis Calvert MD Apr 04, 2017 14:08
--- NOTE | 2017-04-04 14:08 | HHI.DCPOC ---
Discharge Care Plan Diagnosis: (1) Non-small cell cancer of right lung (2) Physical deconditioning (3) Bone metastases (4) Renal metastasis (5) Failure to thrive in adult Goals to Promote Your Health * To prevent worsening of your condition and complications * To maintain your health at the optimal level Directions to Meet Your Goals Take your medications as prescribed Follow your dietary instruction Follow activity as directed Keep your appointments as scheduled Take your immunizations and boosters as scheduled If your symptoms worsen call your PCP, if no PCP go to Urgent Care Center or Emergency Room Smoking is Dangerous to Your Health. Avoid second hand smoke Call the 24-hour hour crisis hotline for domestic abuse at Glenis Calvert MD Apr 04, 2017 14:08
== END 2017-04-04 17:27 | disposition home or self-care (01) | DRG 641 ==
LOC: NEPC 14:36 → NEDA 17:43 → OBSVTOIN 18:16 → N06B 19:32
PROVIDERS: ADMIT Family Medicine; ATTEND Family Medicine
DX: E46 Unspecified protein-calorie malnutrition (principal); R64 Cachexia; C77.1 Secondary and unspecified malignant neoplasm of intrathoracic lymph nodes; C79.00 Secondary malignant neoplasm of unspecified kidney and renal pelvis; C79.51 Secondary malignant neoplasm of bone; C79.72 Secondary malignant neoplasm of left adrenal gland; C34.91 Malignant neoplasm of unspecified part of right bronchus or lung; Z68.1 Body mass index [BMI] 19.9 or less, adult; E87.8 Other disorders of electrolyte and fluid balance, not elsewhere classified; E86.0 Dehydration; J43.9 Emphysema, unspecified; R62.7 Adult failure to thrive; I10 Essential (primary) hypertension; T40.2X5A Adverse effect of other opioids, initial encounter; K59.03 Drug induced constipation; G89.3 Neoplasm related pain (acute) (chronic); I95.9 Hypotension, unspecified; F12.90 Cannabis use, unspecified, uncomplicated; F17.210 Nicotine dependence, cigarettes, uncomplicated; F41.9 Anxiety disorder, unspecified; Z91.19 Patient's noncompliance with other medical treatment and regimen; Z92.21 Personal history of antineoplastic chemotherapy
CPT/HCPCS: 71020; 74000; 80048; 80053; 80076; 82948; 83036; 83605; 83735; 84100; 84439; 84443; 85025; 85027; 85610; 85730; 87040; 93005; 94150; 99212; 99214; 99285; G0463; J1650; J2270; J7030

== ENCOUNTER 2017-04-14 19:04 | Emergency (ER) | payer OTHER ==
[~2017-04-14] VITALS: Ht 172.7 cm; Wt 47.3 kg
[~2017-04-14 19:04] MED LIST changes: +ALPR.5 PO; +DRON5CAP PO; -HYDR-3533 PO; -MORP1TAB24 PO; +MORP1TAB25 PO; +Megestrol Liq PO; +OXYC1TAB63 PO; +PERI PO
[2017-04-14 19:10] VITALS: BP 113/69; PULSE 100; RESP 16; TEMP 98.8; O2SAT 98
[2017-04-14] MEDS ORDERED: FENT50DI T-DERMAL (19:20)
[2017-04-14] MEDS ORDERED: MORPHINE SULFATE 4 MG/ML INJ IV PUSH ONE (20:30)
--- NOTE | 2017-04-14 20:30 | PD ---
HPI Chief Complaint: Medical Clearance Time Seen by Provider: 19:26 Travel History International Travel<30 days: No Contact w/Intl Traveler<30days: No Traveled to known affect area: No History of Present Illness HPI Patient is a 51-year-old male who has been diagnosed with lung cancer since June. He began chemotherapy in August > pt reports that all his hair fell out and he became upset and stopped chemotherapy. He is being followed by Dr. Méndez. He recently was admitted to the hospital to "put weight back on because I wasting away" made him lose 40 pounds and he was too weak Dr. Hargrove felt for chemotherapy. Today apparently his brother calledthe patients doctor and reports that patient was getting worse pain and was in need of better pain control .Pt reports he was told by Dr. Hargrove to come to the ER and needs to be admitted for possible set up for home hospice for pain management> At this point. Patient reports that he had a PET scan that showed there were spots on his kidneys bilaterally as well as his spine and pelvic bone . Patient is in the ER complaining of rib pain back pain. And back pain . He does not complain of shortness of breath .. he does not seem to be respiratory distress. patient is awake alert. Pt looks very cachectic thin with sunken cheeks. PFSH Past Medical History Blood Disorders: No Anxiety: Yes Depression: Yes Cancer: Yes (lung, kidneys) Cardiovascular Problems: No Chemotherapy: Yes (3 wks ago) COPD: Yes (EMPHYSEMA) Diabetes: No Diminished Hearing: No Endocrine: No Gastrointestinal Disorders: Yes GERD: Yes Genitourinary: No Hepatitis: No Hiatal Hernia: No Hypertension: Yes Immune Disorder: No Implanted Vascular Access Dvce: Yes Musculoskeletal: Yes Neurologic: No Psychiatric: Yes Reproductive: No Respiratory: Yes Sleep Apnea: Yes Thyroid Disease: No Past Surgical History Surgical History: No Previous Surgery Abdominal Surgery: No AICD: No Cardiac Surgery: No Ear Surgery: No Endocrine Surgery: No Eye Surgery: No Genitourinary Surgery: No Gynecologic Surgery: No Joint Replacement: No Oral Surgery: No Pacemaker: No Thoracic Surgery: No Other Surgery: Yes Social History Alcohol Use: No (QUIT IN ) Tobacco Use: Yes (1PPD) Substance Use: Yes (pot) Allergies-Medications (Allergen,Severity, Reaction): Coded Allergies: No Known Allergies (Verified Allergy, Unknown, 04/14/17) Reported Meds & Prescriptions Reported Meds & Active Scripts Active [Megestrol Liq] 400 MG/10 ML Susp 400 Mg PO BID@0900,1700 30 Days Dronabinol 5 Mg Cap 5 Mg PO BID@,16 Gnp Senna Plus 8.6-50 mg (Sennosides-Docusate Sodium) 8.6 Mg-50 Mg Tab 1 Tab PO BID Reported Fentanyl Patch 72 HR (Fentanyl) 50 Mcg/Hr Patch 50 Mcg T-DERMAL Q72H Remove old patch when new one placed. Xanax (Alprazolam) 0.5 Mg Tab 0.5 Mg PO Q4H PRN Review of Systems Except as stated in HPI: all other systems reviewed are Neg General / Constitutional: Positive: Weight Loss Gastrointestinal: Positive: Nausea Musculoskeletal: Positive: Myalgias, Pain (back hip ) Physical Exam Narrative GENERAL: pt wearing a ski cap face very thin almost cachetic SKIN: Warm and dry. HEAD: Atraumatic. Normocephalic. EYES: Pupils equal and round. No scleral icterus. No injection or drainage. ENT: No nasal bleeding or discharge. Mucous membranes pink and moist. NECK: Trachea midline. No JVD. CARDIOVASCULAR: Regular rate and rhythm. RESPIRATORY: No accessory muscle use. Clear to auscultation. Breath sounds equal bilaterally. GASTROINTESTINAL: Abdomen soft, non-tender, nondistended. Hepatic and splenic margins not palpable. MUSCULOSKELETAL: Extremities without clubbing, cyanosis, or edema. No obvious deformities. NEUROLOGICAL: Awake and alert. No obvious cranial nerve deficits. Motor grossly within normal limits. Five out of 5 muscle strength in the arms and legs. Normal speech. PSYCHIATRIC: Appropriate mood and affect; insight and judgment normal. Data Data Last Documented VS Vital Signs Date Time Temp Pulse Resp B/P (MAP) Pulse Ox O2 Delivery O2 Flow Rate FiO2 04/15/17 13:46 04/15/17 13:00 111 14 98 Room Air 04/14/17 19:10 98.8 Orders Orders Complete Blood Count With Diff (04/14/17 20:26) Comprehensive Metabolic Panel (04/14/17 20:26) Morphine Inj (Morphine Inj) (04/14/17 20:30) Morphine Inj (Morphine Inj) (04/15/17 01:30) Trazodone (Desyrel) (04/15/17 05:30) Morphine Inj (Morphine Inj) (04/15/17 08:30) Morphine Inj (Morphine Inj) (04/15/17 08:51) Ed Discharge Order (04/15/17 09:44) Morphine Inj (Morphine Inj) (04/15/17 12:15) Morphine Inj (Morphine Inj) (04/15/17 12:14) Labs Laboratory Tests Test 04/14/17 20:30 White Blood Count 10.0 TH/MM3 Red Blood Count 3.25 MIL/MM3 Hemoglobin 9.7 GM/DL Hematocrit 28.8 % Mean Corpuscular Volume 88.5 FL Mean Corpuscular Hemoglobin 29.7 PG Mean Corpuscular Hemoglobin Concent 33.6 % Red Cell Distribution Width 15.5 % Platelet Count 660 TH/MM3 Mean Platelet Volume 6.5 FL Neutrophils (%) (Auto) 64.6 % Lymphocytes (%) (Auto) 22.2 % Monocytes (%) (Auto) 9.3 % Eosinophils (%) (Auto) 2.6 % Basophils (%) (Auto) 1.3 % Neutrophils # (Auto) 6.5 TH/MM3 Lymphocytes # (Auto) 2.2 TH/MM3 Monocytes # (Auto) 0.9 TH/MM3 Eosinophils # (Auto) 0.3 TH/MM3 Basophils # (Auto) 0.1 TH/MM3 CBC Comment DIFF FINAL Differential Comment Blood Urea Nitrogen 9 MG/DL Creatinine 0.43 MG/DL Random Glucose 91 MG/DL Total Protein 7.9 GM/DL Albumin 2.5 GM/DL Calcium Level 9.9 MG/DL Alkaline Phosphatase 89 U/L Aspartate Amino Transf (AST/SGOT) 28 U/L Alanine Aminotransferase (ALT/SGPT) 18 U/L Total Bilirubin 0.3 MG/DL Sodium Level 135 MEQ/L Potassium Level 3.8 MEQ/L Chloride Level 100 MEQ/L Carbon Dioxide Level 27.6 MEQ/L Anion Gap 7 MEQ/L Estimat Glomerular Filtration Rate 207 ML/MIN MDM Medical Decision Making Medical Screen Exam Complete: Yes Emergency Medical Condition: Yes Differential Diagnosis chronic pain of metastasis vs new bone lesion worsening Primary lesion , other Narrative Course Patient's port is accessed . Pt given 4 of morphine and then I call oncology Dr. Sheffield who recommends getting hospice to come see him in the ER and possibly arrange home hospice at this time. Home hospice arrives they feel that he will need to be seen in the morning so that more services can be arranged prior to discharge. Patient will be boarding in the ER until morning when he can be re-seen by the hospice team in the AM who can arrange for home hospice and arrange home pain mangmt and meds and home visits Diagnosis Primary Impression: Cancer related pain David Keen MD Apr 14, 2017 20:30
[2017-04-14 20:57] LABS: AUTOMATED NEUTROPHIL # 6.5 TH/MM3 (1.8-7.7); BASOPHIL # 0.1 TH/MM3 (0-0.2); BASOPHIL % 1.3 % (0.0-2.0); EOSINOPHIL # 0.3 TH/MM3 (0-0.4); EOSINOPHIL % 2.6 % (0.0-4.0); HEMATOCRIT 28.8 % (39.0-51.0); HEMOGLOBIN 9.7 GM/DL (13.0-17.0); LYMPH % 22.2 % (9.0-44.0); LYMPHOCYTE # 2.2 TH/MM3 (1.0-4.8); MEAN CELL VOLUME 88.5 FL (80.0-100.0); MEAN CORPUSCULAR HEMOGLOBIN 29.7 PG (27.0-34.0); MEAN CORPUSCULAR HGB CONC 33.6 % (32.0-36.0); MEAN PLATELET VOLUME 6.5 FL (7.0-11.0); MONO % 9.3 % (0.0-8.0); MONOCYTE # 0.9 TH/MM3 (0-0.9); NEUT % 64.6 % (16.0-70.0); PLATELET COUNT 660 TH/MM3 (150-450); RED BLOOD COUNT 3.25 MIL/MM3 (4.50-5.90); RED CELL DISTRIBUTION WIDTH 15.5 % (11.6-17.2)
[2017-04-14 21:10] LABS: ALBUMIN 2.5 GM/DL (3.4-5.0); AST (GOT) 28 U/L (15-37); BICARBONATE 27.6 MEQ/L (21.0-32.0); BLOOD UREA NITROGEN 9 MG/DL (7-18); CALCIUM 9.9 MG/DL (8.5-10.1); CHLORIDE 100 MEQ/L (98-107); CREATININE 0.43 MG/DL (0.60-1.30); GLOMERULAR FILTRATION RATE 207 ML/MIN (>89); GLUCOSE,RANDOM 91 MG/DL (74-106); SODIUM (NA) 135 MEQ/L (136-145)
[2017-04-14 21:11] LABS: ALT (GPT) 18 U/L (12-78)
[2017-04-14 21:14] LABS: ALKALINE PHOSPHATASE 89 U/L (45-117); TOTAL BILIRUBIN ADULT 0.3 MG/DL (0.2-1.0); TOTAL PROTEIN 7.9 GM/DL (6.4-8.2)
[2017-04-15] VITALS: BP 112/64; PULSE 104; RESP 14; O2SAT 95
[2017-04-15] MEDS ORDERED: MORPHINE SULFATE 4 MG/ML INJ IV PUSH ONE ×3 (01:30→12:15)
[2017-04-15] MEDS ORDERED: traZODone HCL 50 MG TAB PO ONE (05:30)
[2017-04-15 06:33] VITALS: BP 95/62; PULSE 100; RESP 14; O2SAT 96
[2017-04-15] MEDS ORDERED: MORPHINE SULFATE 4 MG/ML INJ ONE ×2 (08:51→12:14)
[2017-04-15 08:54] VITALS: BP 116/78; PULSE 121; RESP 14; O2SAT 98
[2017-04-15 13:00] VITALS: BP 122/80; PULSE 111; RESP 14; O2SAT 98
== END 2017-04-15 14:01 | disposition hospice, inpatient (51) ==
LOC: NEPE 19:04
DX: G89.3 Neoplasm related pain (acute) (chronic) (principal); C34.90 Malignant neoplasm of unspecified part of unspecified bronchus or lung; I10 Essential (primary) hypertension; F17.200 Nicotine dependence, unspecified, uncomplicated
CPT/HCPCS: 80053; 85025; 99282; J2270